=== PATIENT | female | born 1980 | race Caucasian/White ===

== ENCOUNTER 2017-07-16 22:07 | Emergency (ER) | payer OTHER, SELFPAY ==
[2017-07-16 22:09] VITALS: BP 162/103; PULSE 87; RESP 20; TEMP 37.1; O2SAT 99; BMI 46.1
--- NOTE | 2017-07-16 22:24 | CT_ITS ---
STUDY: CTA OF THE BRAIN REASON FOR EXAM: Female, 36 years old. INT SHARP PAIN RIGHT SIDE HEAD NEAR EYE, UNABLE TO OPEN EYE WHEN PAIN OCCURS RADIATION DOSAGE (If Supplied By Facility): CTDIvol = ( 25.29 ) mGy, DLP = ( 1543.58 ) mGycm TECHNIQUE: CT angiography was performed with a multi-detector CT scanner. Data acquisition was obtained from the skull base through the vertex following intravenous administration of ml of . MIP images were reconstructed from the axial data set. Post-processing of the angiographic images was performed, with multiplanar reformation and 3D reconstruction. Individualized dose optimization techniques were used for this CT. COMPARISON: None. FINDINGS: Normal bilateral petrous carotid arteries. Normal right cavernous carotid artery with a normal supraclinoid bifurcation. Normal left cavernous carotid artery with a normal supraclinoid bifurcation. Normal right A1 segments of the anterior cerebral artery. Normal left A1 segments of the anterior cerebral artery. Normal intact anterior communicating artery (ACOM). Normal bilateral A2 segments of the anterior cerebral arteries. Normal right M1 and M2 segments of the middle cerebral arteries, with a normal M1 bifurcation. Normal left M1 and M2 segments of the middle cerebral arteries, with a normal M1 bifurcation. There is non-visualization of the right posterior communicating artery (PCOM). There is non-visualization of the left posterior communicating artery (PCOM). Normal bilateral vertebral arteries. Normal basilar artery with a normal basilar bifurcation. The visualized bilateral superior cerebellar (SCA) arteries are normal. Normal bilateral P1, P2 and visualized P3 segments of the posterior cerebral arteries. There is no demonstrated aneurysm of the [place]. There is no demonstrated abnormality of the visualized brain. CT/CTA Head W/WO Contrast IMPRESSION: Normal [place] without a demonstrated aneurysm or hemodynamically significant stenosis. Electronically Signed: Olga Lidia Del Valle MD at 23:50 EDT Tel , Service support ,
--- NOTE | 2017-07-16 22:29 | ED.VISSUMM ---
- ER Visit Summary Date of Service: 07/16/17 Chief Complaint: Headache History of Present Illness: The patient is a 36 F presenting with right-sided headache. She states this has gradually worsened since yesterday. She has intermittent pain in the right side of her forehead. She states that when the pain is severe it causes her eye to close. She denies visual changes or photophobia. Denies trauma. Denies fever or neck pain. Denies numbness or weakness. She has a history of migraines and states this does not feel like her typical migraine. She tried her typical migraine medication without relief. Physical Examination: Vitals are stable. Patient is afebrile. Alert no acute distress. HEENT exam right temporal area and right forehead tenderness, no signs of infection Neck is supple. No meningismus Lungs are clear and equal bilaterally. Heart is regular rate and rhythm. Abdomen is soft nontender nondistended. Extremities are unremarkable. Skin is warm and dry. No focal neurologic deficit. Remainder of exam is unremarkable. Emergency Department Course and Treatment: Patient is given Compazine, Benadryl. CTA head shows normal [place] without a demonstrated aneurysm or hemodynamically significant stenosis. CBC, chemistries, and sed rate are within normal limits. On reevaluation, patient is resting comfortably. She has an appointment with her primary care physician in the morning. She is advised to keep this appointment. She is advised return ED for any worsening complaints. Disposition: Discharge home Impression: Headache This note was generated with [employer] dictation software. It may contain incorrect words, spelling, and punctuation that were not noted in review of the chart prior to signing ED Disposition - Plan for ED Patient: Disposition: Home or Assisted Living Chief Complaint: Headache Instructions: ED Cephalgia Unspecified Referrals: Jose Rasmussen III, MD [Primary Care Provider] -
--- NOTE | 2017-07-16 22:33 | ED.DCSUM_ITS ---
- ER Visit Summary Date of Service: 07/16/17 Chief Complaint: Headache History of Present Illness: The patient is a 36 F presenting with right-sided headache. She states this has gradually worsened since yesterday. She has intermittent pain in the right side of her forehead. She states that when the pain is severe it causes her eye to close. She denies visual changes or photophobia. Denies trauma. Denies fever or neck pain. Denies numbness or weakness. She has a history of migraines and states this does not feel like her typical migraine. She tried her typical migraine medication without relief. Physical Examination: Vitals are stable. Patient is afebrile. Alert no acute distress. HEENT exam right temporal area and right forehead tenderness, no signs of infection Neck is supple. No meningismus Lungs are clear and equal bilaterally. Heart is regular rate and rhythm. Abdomen is soft nontender nondistended. Extremities are unremarkable. Skin is warm and dry. No focal neurologic deficit. Remainder of exam is unremarkable. Emergency Department Course and Treatment: Patient is given Compazine, Benadryl. CTA head shows normal [place] without a demonstrated aneurysm or hemodynamically significant stenosis. CBC, chemistries, and sed rate are within normal limits. On reevaluation, patient is resting comfortably. She has an appointment with her primary care physician in the morning. She is advised to keep this appointment. She is advised return ED for any worsening complaints. Disposition: Discharge home Impression: Headache This note was generated with [employer] dictation software. It may contain incorrect words, spelling, and punctuation that were not noted in review of the chart prior to signing ED Disposition - Plan for ED Patient: Disposition: Home or Assisted Living Chief Complaint: Headache Instructions: ED Cephalgia Unspecified Referrals: Jose Rasmussen III, MD [Primary Care Provider] -
[2017-07-16] MEDS: proCHLORPERazine 10 MG/2 ML Vial IV (22:49)
[2017-07-16] MEDS: DiphenhydrAMINE 50 MG/ML Syringe 25 MG IV (22:49)
[2017-07-16 23:01] LABS: Absolute Lymphocyte Count 2.37 X10^3/ul (0.83-4.51); Absolute Neutrophil Count 5.5 X10^3/uL (2.0-7.7); Basophil# 0.01 X10^3/uL; Basophil% 0.1 % (0-1); Eosinophil# 0.15 X10^3/uL; Eosinophils% 1.8 % (0-5); Hematocrit 37.1 % (37-47); Hemoglobin 11.9 g/dl (12.0-15.0); Lymphocyte # 2.37 X10^3/ul (4.0); Lymphocyte % 27.8 % (19-41); Mean Corp Hgb Conc 32.1 g/gl (32-36); Mean Corpuscular Hgb 27.4 pg (27.0-32.0); Mean Corpuscular Volume 85.3 fL (81-99); Mean Platelet Vol. 9.4 fl (6.2-12.0); Monocyte# 0.52 X10^3/uL; Monocyte% 6.1 % (0-10); Neutrophil # 5.47 X10^3/uL (2.7-7.7); Neutrophil % 64.2 % (47-70); Platelet Count 368 K/mm3 (150-450); RBC Distribution Width CV 13.1 % (11.6-14.6); RBC Distribution Width SD 40.7 fl (35.1-43.9); Red Blood Count 4.35 M/mm3 (4.2-5.4); White Blood Count 8.5 K/mm3 (4.4-11.0)
[2017-07-16 23:03] LABS: POSITIVE COUNT NO; POSITIVE DIFFERENTIAL NO; POSITIVE MORPHOLOGY NO
[2017-07-16 23:09] LABS: Erythrocyte Sedimentation Rate 9 mm/hr (0-20)
[2017-07-16 23:13] LABS: Anion Gap 5 (5-15); BUN 12 mg/dL (7-18); BUN/Creat Ratio 12.6 RATIO (10-20); Calcium,Total 9.1 mg/dL (8.5-10.1); Chloride 107 mmol/L (98-107); Creatinine, Serum 0.95 mg/dL (0.55-1.02); EST Glomerular Filtration Rate 71 mL/min (>60); Est Glom Filt Rate - Afr Amer 86 mL/min (>60); Estimated Creatinine Clearance 83.38 ml/min; Glucose 94 mg/dL (74-106); Potassium 3.6 mmol/L (3.5-5.1); Sodium Level 139 mmol/L (136-145)
--- NOTE | 2017-07-17 00:17 | ED.DEP ---
ED Disposition - Plan for ED Patient: Chief Complaint: Headache Instructions: ED Cephalgia Unspecified Referrals: Jose Rasmussen III, MD [Primary Care Provider] -
[2017-07-17 00:32] VITALS: BP 154/60; PULSE 75; RESP 18; O2SAT 97
== END 2017-07-17 00:33 | disposition home or self-care (01) ==
PROVIDERS: Emergency Provider Emergency Medicine; Family Provider Family Medicine; PCP Family Medicine
DX: R51 Headache (principal); I10 Essential (primary) hypertension; E28.2 Polycystic ovarian syndrome; Z79.899 Other long term (current) drug therapy
CPT/HCPCS: 70496; 80048; 85025; 85652; 96374; 96375; 99283; J7030; Q9967

== ENCOUNTER → 2017-11-24 13:44 | Outpatient (CLI) | payer OTHER, SELFPAY ==
--- NOTE | 2017-11-24 13:46 | US_ITS ---
STUDY: ULTRASOUND OF THE FEMALE PELVIS - COMPLETE REASON FOR EXAM: Female, 37 years old. Abnormal bleeding. LMP: October 28, 2017. TECHNIQUE: Transabdominal and Transvaginal TECHNICAL QUALITY: Adequate. COMPARISON: CT of the abdomen and pelvis, August 09, 2015. FINDINGS: The uterus is anteverted and is in a midline position. The uterus measures 8.8 x 4.6 x 3.8 cm. There is a Nabothian cyst of the cervix. The endometrium measures 4.7 mm in thickness, and is hyperechoic. There is no demonstrated endometrial mass. There is no demonstrated myometrial mass. I.U.D. - The patient does not have an I.U.D. The right ovary is visualized. The right ovary measures 3.9 x 2.5 x 2.2 cm. There is a 2.6 x 1.7 x 1.8 cm cyst. There is no visualized right adnexal mass or complex lesion. There is normal arterial and normal venous vascularity. The left ovary is visualized. The left ovary measures 3.2 x 3.3 x 2.0 cm. There is a 2.3 x 2.5 x 1.9 cm cyst. There is no visualized left adnexal mass or complex lesion. There is normal arterial and normal venous vascularity. There is no fluid in the cul-de-sac. The pre void volume of the bladder was 374 ml. The urinary bladder is grossly unremarkable. Polycystic ovary disease: No. US/Pelvic (Non ) IMPRESSION: Bilateral ovarian cysts without uterine abnormality. Electronically Signed: Bebo Mojica DO at 22:44 EDT Tel [phone], Service support ,
--- NOTE | 2017-11-24 14:05 | US_ITS ---
STUDY: ULTRASOUND OF THE FEMALE PELVIS - COMPLETE REASON FOR EXAM: Female, 37 years old. Abnormal bleeding. LMP: October 28, 2017. TECHNIQUE: Transabdominal and Transvaginal TECHNICAL QUALITY: Adequate. COMPARISON: CT of the abdomen and pelvis, August 09, 2015. FINDINGS: The uterus is anteverted and is in a midline position. The uterus measures 8.8 x 4.6 x 3.8 cm. There is a Nabothian cyst of the cervix. The endometrium measures 4.7 mm in thickness, and is hyperechoic. There is no demonstrated endometrial mass. There is no demonstrated myometrial mass. I.U.D. - The patient does not have an I.U.D. The right ovary is visualized. The right ovary measures 3.9 x 2.5 x 2.2 cm. There is a 2.6 x 1.7 x 1.8 cm cyst. There is no visualized right adnexal mass or complex lesion. There is normal arterial and normal venous vascularity. The left ovary is visualized. The left ovary measures 3.2 x 3.3 x 2.0 cm. There is a 2.3 x 2.5 x 1.9 cm cyst. There is no visualized left adnexal mass or complex lesion. There is normal arterial and normal venous vascularity. There is no fluid in the cul-de-sac. The pre void volume of the bladder was 374 ml. The urinary bladder is grossly unremarkable. Polycystic ovary disease: No. US/Transvaginal Non- IMPRESSION: Bilateral ovarian cysts without uterine abnormality. Electronically Signed: Bebo Mojica DO at 22:44 EDT Tel [phone], Service support ,
== END ==
LOC: US 13:45
PROVIDERS: Family Provider Family Medicine; PCP Family Medicine; Referring Provider Obstetrics & Gynecology; Visit Provider Obstetrics & Gynecology
DX: N92.6 Irregular menstruation, unspecified (principal)
CPT/HCPCS: 76830; 76856

== ENCOUNTER 2018-02-28 09:40 | Emergency (ER) | payer OTHER, SELFPAY ==
[2018-02-28 08:19] VITALS: BMI 40.6
[2018-02-28 09:40] VITALS: BP 154/100; PULSE 69; RESP 18; TEMP 36.6; O2SAT 96; BMI 43.0
--- NOTE | 2018-02-28 09:50 | CT_ITS ---
STUDY: CT ABDOMEN AND PELVIS WITHOUT CONTRAST REASON FOR EXAM: Female, 37 years old. Right lower quadrant for 3 days RADIATION DOSAGE (If Supplied By Facility): CTDIvol = ( 22.66 ) mGy, DLP = ( 1228.68 ) mGycm TECHNIQUE: Transaxial images were obtained from the dome of the diaphragm to the symphysis pubis without oral contrast, and without intravenous contrast. Sagittal and coronal images were reconstructed. Individualized dose optimization techniques were used for this CT. COMPARISON: 08/09/2015 FINDINGS: The visualized lung bases are unremarkable. The visualized portions of the heart are within normal limits. Normal liver. There is non-visualization of the gallbladder, which may be secondary to either contraction or a prior cholecystectomy. Normal spleen. Normal pancreas. Normal bilateral adrenal glands. Normal right kidney. Normal left kidney. Normal visualized stomach. Normal small intestine. Mild fecal retention in the colon but no colon wall thickening. There is non-visualization of the appendix. No pericecal stranding or inflammation. Very small subcentimeter lymph nodes in the right lower quadrant but no dominant cameron mass. Normal abdominal aorta. Normal inferior vena cava. Normal retroperitoneum. Normal urinary bladder. Normal visualized uterus. 3.6 cm intermediate echogenicity cyst of the right ovary. No pelvic free fluid. IUD is noted. Normal abdominal wall. There are degenerative changes of the thoracolumbar spine. CT/Abdomen/Pelvis without Cont IMPRESSION: 1. No hydronephrosis or urinary tract calcifications. 2. 3.6 cm intermediate density right ovarian cyst could represent a hemorrhagic cyst. No pelvic free fluid or inflammation. 3. Nonvisualized appendix but no pericecal inflammation. Electronically Signed: Joseph Tinoco MD at 10:56 EST , Service support ,
[2018-02-28 10:12] LABS: Absolute Lymphocyte Count 1.59 X10^3/ul (0.83-4.51); Absolute Neutrophil Count 3.7 X10^3/uL (2.0-7.7); Basophil# 0.01 X10^3/uL; Basophil% 0.2 % (0-1); Eosinophil# 0.24 X10^3/uL; Hematocrit 42.2 % (37-47); Hemoglobin 13.9 g/dl (12.0-15.0); Lymphocyte # 1.59 X10^3/ul (4.0); Lymphocyte % 26.2 % (19-41); Mean Corp Hgb Conc 32.9 g/gl (32-36); Mean Corpuscular Hgb 28.4 pg (27.0-32.0); Mean Corpuscular Volume 86.3 fL (81-99); Mean Platelet Vol. 9.4 fl (6.2-12.0); Monocyte% 8.2 % (0-10); Neutrophil # 3.73 X10^3/uL (2.7-7.7); Neutrophil % 61.4 % (47-70); POSITIVE COUNT NO; POSITIVE DIFFERENTIAL NO; POSITIVE MORPHOLOGY NO; Platelet Count 345 K/mm3 (150-450); RBC Distribution Width CV 13.8 % (11.6-14.6); RBC Distribution Width SD 43.7 fl (35.1-43.9); Red Blood Count 4.89 M/mm3 (4.2-5.4); White Blood Count 6.1 K/mm3 (4.4-11.0)
[2018-02-28] MEDS: Morphine 4 MG/ML Syringe IV (10:29)
[2018-02-28] MEDS: Ondansetron 4 MG/2 ML Vial IV (10:29)
[2018-02-28] MEDS: 0.9% Normal Saline 1,000 ML 125 ML IV (10:29)
[2018-02-28 10:30] LABS: ALB/GLOB Ratio 1.1 RATIO (0.9-2.4); AST(SGOT) 11 U/L (15-37); Alanine Aminotransfer ALT/SGPT 24 U/L (13-56); Albumin, Serum 4.1 g/dL (3.2-5.0); Alkaline Phosphatase 76 U/L (45-117); Anion Gap 10 (5-15); BUN 13 mg/dL (7-18); BUN/Creat Ratio 14.7 RATIO (10-20); Calcium,Total 8.9 mg/dL (8.5-10.1); Chloride 108 mmol/L (98-107); Creatinine, Serum 0.88 mg/dL (0.55-1.02); EST Glomerular Filtration Rate 77 mL/min (>60); Est Glom Filt Rate - Afr Amer 93 mL/min (>60); Estimated Creatinine Clearance 89.15 ml/min; Globulin 3.6 g/dL (2.2-4.2); Glucose 94 mg/dL (74-106); Potassium 3.8 mmol/L (3.5-5.1); Protein, Total 7.7 g/dL (6.4-8.2); Sodium Level 140 mmol/L (136-145)
[2018-02-28 10:35] LABS: Pregnancy, Serum, hCG Quali. NEGATIVE Negative (0-9 Nonpreg)
[2018-02-28 10:45] LABS: Bacteria 0 SEEN /hpf (None Seen); Mucous, Urine 0 SEEN /hpf (<or=2+); Red Blood Cells-Urine 0 SEEN /hpf (0-5)
[2018-02-28 10:58] LABS: Color, Urine Straw (Yellow); Glucose, Dipstick Normal (Normal); Ketone-Dipstick Negative (Negative); Leukocyte Esterase-Dipstick 100 /ul (Negative); Nitrite-Dipstick Negative (Negative); Occult Blood-Urine Negative /ul (Negative); Protein-Dipstick Negative (Negative); Urine Bilirubin Dipstick Negative (Negative); Urine Clarity Clear (Clear); Urine Urobilinogen Normal (Normal)
[2018-02-28 11:05] LABS: Squamous Epithelial Cells - UA 0-5 SEEN /hpf (5-10); White Blood Cells 0-5 SEEN /hpf (0-5)
--- NOTE | 2018-02-28 11:05 | ED.DCSUM_ITS ---
- ER Visit Summary Date of Service: 02/28/18 Chief Complaint: [Abdominal pain] History of Present Illness: The patient is a 37 F [presents to the emergency department complaint of abdominal pain that started 3 days ago. Patient states the pain continuous. She rates her pain a 4 5 out of 10 currently. Patient had nausea but no vomiting. She denies any fever. She had somewhat decreased appetite today. Patient was seen at urgent care and had a urinalysis that was negative on the dip but sent to the ER for further evaluation. Patient does have a history of hypertension, PCO S syndrome, migraines. Patient has had prior cholecystectomy. Patient has an IUD and does not believe she is .] Patient denies urinary symptoms. Physical Examination: [HEENT-PERRLA, EOMI. Cranial nerves II through XII grossly intact. TMs clear. Mucous membranes moist. No adenopathy. Cardiovascular-regular rate and rhythm without murmur or ectopy Lungs-clear to auscultation, chest wall stable without crepitus or subcu emphysema Abdomen-normoactive bowel sounds, soft. Patient has some tenderness over right lower quadrant with some guarding. There is no rebound, rigidity, or perineal signs. Negative Rovsing sign. Negative obturator sign. Extremities-intact ?4, normal range of motion, normal pulses, atraumatic] Test Results: [CBC with differential obtained was normal. Chemistries were normal. LFTs were normal. HCG was negative. Urine dip is negative and microscopic pending. CT flank obtained showed nonvisualization of the appendix however there was no pericecal inflammation. There is no evidence of urolithiasis. Patient was noted to have a 3.6 cm right-sided ovarian cyst that could be hemorrhagic.] Emergency Department Course and Treatment: [Patient given morphine and Zofran for pain. Patient continued to complain of nausea and was given Phenergan 12.5 mill grams IV.] Treatment Plan: [Patient will be given a prescription for Phenergan and Percocet for pain. Patient advised to follow-up with her [employer] within next 3-5 days.] Disposition: [Discharged home in stable condition] Impression: [Right ovarian cyst Abdominal pain] This note was generated with [employer] dictation software. It may contain incorrect words, spelling, and punctuation that were not noted in review of the chart prior to signing ED Disposition - Plan for ED Patient: Chief Complaint: Abd Pain Referrals: Jose Rasmussen III, MD [Primary Care Provider] -
--- NOTE | 2018-02-28 11:05 | ED.DEP ---
ED Disposition - Plan for ED Patient: Chief Complaint: Abd Pain Instructions: ED Cyst Ovarian Prescriptions: Oxycodone HCl/Acetaminophen [Percocet 5/325] 1 tab PO Q6H PRN PRN 3 Days #12 tab PRN Reason: Pain proMETHazine tablet [Phenergan] 25 mg PO Q6H PRN PRN #10 tab PRN Reason: Nausea Referrals: Jose Rasmussen III, MD [Primary Care Provider] - Liv Fung MD [STAFF PHYSICIAN] - 3-5 Days
[2018-02-28] MEDS: proMETHazine 25 MG/ML Syringe 12.5 MG IV (11:16)
[2018-02-28 11:20] VITALS: BP 145/86; PULSE 56; RESP 16; O2SAT 100
== END 2018-02-28 11:25 | disposition home or self-care (01) ==
PROVIDERS: Emergency Provider Emergency Medicine; Family Provider Family Medicine; PCP Family Medicine
DX: N83.201 Unspecified ovarian cyst, right side (principal); R10.31 Right lower quadrant pain; I10 Essential (primary) hypertension; G43.909 Migraine, unspecified, not intractable, without status migrainosus; Z79.899 Other long term (current) drug therapy
CPT/HCPCS: 74176; 80053; 81001; 84703; 85025; 96361; 96374; 96375; 99283; J7030; A4216; J2405

== ENCOUNTER → 2018-03-08 10:05 | Outpatient (CLI) | payer OTHER, SELFPAY ==
[2018-03-08 09:39] VITALS: BMI 43.0
[2018-03-08 10:56] LABS: Thyroid Stim Hormone (TSH) 0.76 uIU/mL (0.358-3.74)
== END ==
LOC: PAVLAB 10:10
PROVIDERS: Family Provider Family Medicine; PCP Family Medicine; Referring Provider Nurse Practitioner Women's Health; Visit Provider Nurse Practitioner Women's Health
DX: R63.4 Abnormal weight loss (principal)
CPT/HCPCS: 36415; 84443

== ENCOUNTER → 2018-03-16 12:09 | Outpatient (CLI) | payer OTHER, SELFPAY ==
[2018-03-08 09:39] VITALS: BMI 43.0
--- NOTE | 2018-03-16 12:11 | US_ITS ---
STUDY: ULTRASOUND OF THE FEMALE PELVIS - COMPLETE REASON FOR EXAM: Female, 37 years old. Follow-up for ovarian cysts. LMP: Unknown. TECHNIQUE: Transabdominal and Transvaginal TECHNICAL QUALITY: Adequate. COMPARISON: Comparison is made with prior study dated November 24, 2017. FINDINGS: The uterus is anteverted and is in a midline position. The uterus measures 8.9 cm x 5.2 cm x 3.6 cm. There is a Nabothian cyst of the cervix. The endometrium measures 4.0 mm in thickness, and is hyperechoic. There is no demonstrated endometrial mass. There is no demonstrated myometrial mass. I.U.D. - The patient does have an I.U.D. The right ovary is visualized. The right ovary measures 2.7 cm x 2.4 cm x 3.2 cm. A dominant follicle is seen in the right ovary measuring 1.4 cm x 1.3 cm. There is no visualized right adnexal mass or complex lesion. There is normal arterial and normal venous vascularity. The left ovary is visualized. The left ovary measures 2.9 cm x 2.4 cm x 2.4 cm. There is no left ovarian cyst or ovarian mass. There is no visualized left adnexal mass or complex lesion. There is normal arterial and normal venous vascularity. There is no fluid in the cul-de-sac. The pre void volume of the bladder was 751 ml. Polycystic ovary disease: No. US/Pelvic (Non ) IMPRESSION: Dominant follicle in the right ovary. No cyst is seen. An IUD is seen within the endometrium. Electronically Signed: Suhail Mclaughlin MD at 14:29 EST Tel [phone], Service support ,
--- NOTE | 2018-03-16 12:11 | US_ITS ---
STUDY: ULTRASOUND OF THE FEMALE PELVIS - COMPLETE REASON FOR EXAM: Female, 37 years old. Follow-up for ovarian cysts. LMP: Unknown. TECHNIQUE: Transabdominal and Transvaginal TECHNICAL QUALITY: Adequate. COMPARISON: Comparison is made with prior study dated November 24, 2017. FINDINGS: The uterus is anteverted and is in a midline position. The uterus measures 8.9 cm x 5.2 cm x 3.6 cm. There is a Nabothian cyst of the cervix. The endometrium measures 4.0 mm in thickness, and is hyperechoic. There is no demonstrated endometrial mass. There is no demonstrated myometrial mass. I.U.D. - The patient does have an I.U.D. The right ovary is visualized. The right ovary measures 2.7 cm x 2.4 cm x 3.2 cm. A dominant follicle is seen in the right ovary measuring 1.4 cm x 1.3 cm. There is no visualized right adnexal mass or complex lesion. There is normal arterial and normal venous vascularity. The left ovary is visualized. The left ovary measures 2.9 cm x 2.4 cm x 2.4 cm. There is no left ovarian cyst or ovarian mass. There is no visualized left adnexal mass or complex lesion. There is normal arterial and normal venous vascularity. There is no fluid in the cul-de-sac. The pre void volume of the bladder was 751 ml. Polycystic ovary disease: No. US/Transvaginal Non- IMPRESSION: Dominant follicle in the right ovary. No cyst is seen. An IUD is seen within the endometrium. Electronically Signed: Suhail Mclaughlin MD at 14:29 EST Tel [phone], Service support ,
--- OUTSIDE RECORDS SUMMARY | 2018-05-18 15:57 | XMS RPT_ITS ---
:1980 Author Organization OHIP Support Name Relationship Address Phone DUSTY HOFF ROSANNECELIO DDS Unavailable [address] + [place] [address] MAXMIV, ZACKERY Unavailable [address] + [place] [address] NEIL ALEXX Unavailable [address] + [place] [address] DUSTY JEANMELISSA ASHFORD DDS Unavailable [address] + [place] [address] MAXMIV, ZACKERY Unavailable [address] + [place] [address] NEIL ALEXX Unavailable [address] + [place] [address] DUSTY LUIS EDUARDO SEDON DDS Unavailable [address] + [place] [address] MAXMIV, ZACKERY Unavailable [address] + [place] [address] NEIL ALEXX Unavailable [address] + [place] [address] DUSTYGARRICK HOFF SEDON DDS Unavailable [address] + [place] [address] MAXMIV, ZACKERY Unavailable [address] + [place] [address] NEIL ALEXX Unavailable [address] + [place] [address] DUSTY HOFF SEDON DDS Unavailable [address] + [place] [address] MAXMIV, ZACKERY Unavailable [address] + [place] [address] NEIL, ALEXX Unavailable [address] + [place] [address] DUSTY HOFF SEDON DDS Unavailable [address] + [place] [address] MAXMIV, ZACKERY Unavailable [address] + [place] [address] NEIL, ALEXX Unavailable [address] + [place] [address] DUSTY BRISLEY SEDON DDS Unavailable [address] + [place] [address] MAXMIV, ZACKERY Unavailable [address] + [place] [address] NEIL, ALEXX Unavailable [address] + [place] [address] DUSTY BRISLEY SEDON DDS Unavailable [address] + [place] [address] MAXMIV, ZACKERY Unavailable [address] + [place] [address] NEIL, ALEXX Unavailable [address] + [place] [address] DUSTY TEDISLEY SEDON DDS Unavailable [address] + [place] [address] MAXMIV, ZACKERY Unavailable [address] + [place] [address] NEIL, ALEXX Unavailable [address] + [place] [address] DUSTY BRISLEY SEDON DDS Unavailable [address] + [place] [address] MAXMIV, ZACKERY Unavailable [address] + [place] [address] MAXMIV, ZACKERY Unavailable [address] + [place] [address] [facility] Unavailable [address] + [place] [address] Care Team Providers Name Role Phone JOSE RASMUSSEN III Attending Unavailable CEBUL IIIJOSE Referring Unavailable CEBUL IIIJOSE Attending Unavailable CEBUL III, JOSE A Attending Unavailable CEBUL III, JOSE A Referring Unavailable RUY, GARRET Attending Unavailable RUY, GARRET Referring Unavailable RUY, GARRET Referring Unavailable Medina, Bobo Attending Unavailable Cebul III, Jose Referring Unavailable Cebul III, Jose Primary Care Unavailable Ungur, Remus Attending Unavailable Scooba, Christina Attending Unavailable Cebul III, Jose Referring Unavailable Scooba, Christina Attending Unavailable Saida, Christina Referring Unavailable Cebul III, Jose Primary Care Unavailable Saida, Christina Attending Unavailable Saida, Christina Referring Unavailable Cebul III, Jose Primary Care Unavailable Teddy Meyer Attending Unavailable Cebul III, Jose Referring Unavailable Cebul III, Jose Primary Care Unavailable Cebul III, Jose Primary Care Unavailable Andie Contreras Attending Unavailable Marcanthony, Liv Attending Unavailable Cebul III, Jose Referring Unavailable Arabella Montilla Attending Unavailable Cebul III, Jose Referring Unavailable Marcanthony, Liv Attending Unavailable Marcanthony, Liv Referring Unavailable Cebul III, Jose Primary Care Unavailable Marcanthony, Liv Attending Unavailable Cebul III, Jose Referring Unavailable PROBLEMS PROBLEMS DATE TYPE CONDITION / CODE ATTENDING STATUS SOURCE 03/16/2018 Unknown N83.201 - Christina Cintron Active [facility] ovarian cyst, Hospital right side / Repository N83.201(ICD-10) 03/08/2018 Unknown R63.4 - Abnormal Scooba, Christina Active [facility] weight loss / Community R63.4(ICD-10) Hospital Repository 02/28/2018 Unknown N83.209 - Ungur, Remus Active [facility] ovarian cyst, Hospital unspecified side / Repository N83.209(ICD-10) 02/28/2018 Unknown R30.0 - Dysuria / Bobo Haney Active [facility] R30.0(ICD-10) [facility] Hospital Repository 11/19/2017 Unknown N93.8 - Other Marcanthony, Active [facility] specified abnormal [facility] uterine and Hospital vaginal bleeding / Repository N93.8(ICD-10) 11/19/2017 Unknown E28.2 - Polycystic Marcanthony, Active [facility] ovarian syndrome / [facility] E28.2(ICD-10) Hospital Repository 07/05/2014 Active Essential NA Active [facility] (primary) [facility] [place] hypertension / Repository I10(ICD-10) 11/17/2017 Active Morbid (severe) NA Active [facility] obesity due to [facility] [place] excess calories / Repository E66.01(ICD-10) 11/17/2017 Active Metabolic syndrome NA Active [facility] / E88.81(ICD-10) [facility] [place] Repository 11/17/2017 Active Hyperlipidemia, NA Active [facility] unspecified / [facility] [place] E78.5(ICD-10) Repository 11/12/2017 Active Unknown / GARRET MARIEE Active [facility] UNK(Unknown) [facility] [place] Repository 05/15/2017 Unknown J01.90 - Acute Mitch, Teddy Active [facility] sinusitis, Community unspecified / Hospital J01.90(ICD-10) Repository 05/15/2017 Unknown J01.00 - Acute Mitch, Teddy Active [facility] maxillary [facility] sinusitis, Hospital unspecified / Repository J01.00(ICD-10) PROCEDURES PROCEDURES No Procedure Records FoundRESULTS RESULTS TRANSVAGINAL Observed: 03/16/2018 Status: F Source: [place] NON- 12:11 PM REPOSITORY [facility] Imaging Services [address] [place] [address] Transvaginal Non- MR#: [id number] Acct: [id number] Name: GERDA BYRNES Rep #: [id number] : 1980 F 37 From: Suhail Mclaughlin MD PCP: Jose Rasmussen III, MD Status: REG CLI Study: Transvaginal Non- Date of Exam: 03/16/18 Exam# [id number] Ordering Dr: Christina Cintron DIRECTOR OF GRADUATE MEDICAL EDUCATIONJordanC STUDY: ULTRASOUND OF THE FEMALE PELVIS - COMPLETE REASON FOR EXAM: Female, 37 years old. Follow-up for ovarian cysts. LMP: Unknown. TECHNIQUE: Transabdominal and Transvaginal TECHNICAL QUALITY: Adequate. COMPARISON: Comparison is made with prior study dated November 24, 2017. FINDINGS: The uterus is anteverted and is in a midline position. The uterus measures 8.9 cm x 5.2 cm x 3.6 cm. There is a Nabothian cyst of the cervix. The endometrium measures 4.0 mm in thickness, and is hyperechoic. There is no demonstrated endometrial mass. There is no demonstrated myometrial mass. I.U.D. - The patient does have an I.U.D. The right ovary is visualized. The right ovary measures 2.7 cm x 2.4 cm x 3.2 cm. A dominant follicle is seen in the right ovary measuring 1.4 cm x 1.3 cm. There is no visualized right adnexal mass or complex lesion. There is normal arterial and normal venous vascularity. The left ovary is visualized. The left ovary measures 2.9 cm x 2.4 cm x 2.4 cm. There is no left ovarian cyst or ovarian mass. There is no visualized left adnexal mass or complex lesion. There is normal arterial and normal venous vascularity. There is no fluid in the cul-de-sac. The pre void volume of the bladder was 751 ml. Polycystic ovary disease: No. US/Transvaginal Non- IMPRESSION: Dominant follicle in the right ovary. No cyst is seen. An IUD is seen within the endometrium. Electronically Signed: Suhail Mclaughlin MD at 14:29 EST Tel [phone], Service support , CC: SOLANGE Cintron; Jose Rasmussen III, MD Support Services Tech: Signed PELVIC (NON ) Observed: 03/16/2018 Status: F Source: [place] 12:11 PM REPOSITORY [facility] Imaging Services [address] [place] [address] Pelvic (Non ) MR#: [id number] Acct: [id number] Name: GERDA BYRNES Rep #: [id number] : 1980 F 37 From: Suhail Mclaughlin MD PCP: Jose Rasmussen III, MD Status: REG CLI Study: Pelvic (Non ) Date of Exam: 03/16/18 Exam# [id number] Ordering Dr: Christina Cintron DIRECTOR OF GRADUATE MEDICAL EDUCATION-C STUDY: ULTRASOUND OF THE FEMALE PELVIS - COMPLETE REASON FOR EXAM: Female, 37 years old. Follow-up for ovarian cysts. LMP: Unknown. TECHNIQUE: Transabdominal and Transvaginal TECHNICAL QUALITY: Adequate. COMPARISON: Comparison is made with prior study dated November 24, 2017. FINDINGS: The uterus is anteverted and is in a midline position. The uterus measures 8.9 cm x 5.2 cm x 3.6 cm. There is a Nabothian cyst of the cervix. The endometrium measures 4.0 mm in thickness, and is hyperechoic. There is no demonstrated endometrial mass. There is no demonstrated myometrial mass. I.U.D. - The patient does have an I.U.D. The right ovary is visualized. The right ovary measures 2.7 cm x 2.4 cm x 3.2 cm. A dominant follicle is seen in the right ovary measuring 1.4 cm x 1.3 cm. There is no visualized right adnexal mass or complex lesion. There is normal arterial and normal venous vascularity. The left ovary is visualized. The left ovary measures 2.9 cm x 2.4 cm x 2.4 cm. There is no left ovarian cyst or ovarian mass. There is no visualized left adnexal mass or complex lesion. There is normal arterial and normal venous vascularity. There is no fluid in the cul-de-sac. The pre void volume of the bladder was 751 ml. Polycystic ovary disease: No. US/Pelvic (Non ) IMPRESSION: Dominant follicle in the right ovary. No cyst is seen. An IUD is seen within the endometrium. Electronically Signed: Suhail Mclaughlin MD at 14:29 EST Tel [phone], Service support , CC: SOLANGE Cintron; Jose Rasmussen III, MD Support Services Tech: Signed COIL [employer]SEMBLER OFFICE VISIT Observed: 03/08/2018 Status: F Source: [place] REPORT 10:46 AM REPOSITORY [facility] [address] [place], [place] [address] OFFICE VISIT Date of Service: 03/08/18 MR#: [id number] Acct: [id number] Name: GERDA BYRNES Rep #: [id number] : 1980 Provider: SOLANGE Cintron Age/Sex: 37/F [place] [facility] [place]: Signed Intake Vital Signs03/08/18 Body Mass Index (BMI) 43.0 03/08/18 Height 5 ft 8 in 03/08/18 Weight: 283 lb 6 oz 03/08/18 Body Mass Index (BMI) 43.0 03/08/18 Blood Pressure 122/82 H Intake Visit Reasons: FU ER visit/pelvic pain General Passenger Agent Required: No Is patient in pain?: Yes (varies from 1-5) Allergies TAPE Adverse Reaction (Uncoded 03/08/18 09:37) Rash Medications Diltiazem HCl [Diltiazem 24Hr ER] 240 mg PO DAILY 07/23/15 [History Confirmed 03/08/18] Omeprazole [Prilosec] 40 mg PO DAILY 07/23/15 [History Confirmed 03/08/18] Sumatriptan Succinate [Imitrex] 100 mg PO .X1 PRN 07/23/15 [History Confirmed 03/08/18] Losartan Potassium 50 mg PO DAILY 07/16/17 [History Confirmed 03/08/18] Metformin HCl [Glucophage Xr] 500 mg PO DAILY 07/16/17 [History Confirmed 03/08/18] hydroCHLOROthiazide [Hydrochlorothiazide] 12.5 mg PO DAILY 07/16/17 [History Confirmed 03/08/18] gabapentin 300 mg capsule 300 mg PO TID 11/19/17 [History Confirmed 03/08/18] topiramate 50 mg tablet 50 mg PO DAILY 11/19/17 [History Confirmed 03/08/18] proMETHazine tablet [Phenergan] 25 mg PO Q6H PRN PRN #10 tab 02/28/18 [Rx Confirmed 03/08/18] levonorgestrel 20 mcg/24 hr (5 years) intrauterine device 1 insert INTRAUTERINE ONCE 03/08/18 [History Confirmed 03/08/18] Post menopausal: No Patient : No : No Nurse's Note: Pt states she is achy now but had pain when she went to the ER. PFSH Medical History History of migraine (Acute) PCOS (polycystic ovarian syndrome) (Acute) Hypertension (Chronic) Surgical History delivery delivered (Acute) Encounter for cholecystectomy (Acute) History of tonsillectomy (Acute) Family History Father Hypertension Cancer bladder Heart disease Multiple sclerosis Mother Hypertension Social History Smoking Status: Never smoker alcohol intake: never substance use type: does not use caffeine: Yes what type of physical activity do you participate in: none seatbelt use: always do you feel safe at home: Yes additional social history: [employer]- [employer] Patient is a dental hygenist HPI FU ER visit/pelvic pain: Details: GERDA BYRNES is a 37 year old who presents for follow up ED visit 02/28/18 for lower pelvic pain. CT confirmed 3.6 right ovarian cyst, possibly hemorrhagic. Patient reports cysts since age 14. Off OCP in November when had mirena IUD placed for heavy menses. No menses since placement. States pain was intense and sharp when went to ED, now just achy dull lower right pelvis. Pregancy History 2 Elective abortions Hx Para 2 Spontaneous abortions Past Pregnancies Del. DateName GA/Weeks Outcome Route Bth WeighInfant GeLabor LgtAnesthesiDel LocatProvider FOB t n h a n ROS Const Constitutional: Reports system reviewed and no additional complaints, except as docu GI GI: Denies abdominal pain or change in bowel habits : Reports as per HPI Exam Const General: cooperative, no acute distress Nutritional Appearance: well nourished Orientation: oriented x3 External Female Exam: normal external appearance, normal appearance of the urethra Urethra: normal appearance of the urethra Speculum Exam - Vagina: normal appearance of the vagina, normal vaginal discharge Speculum Exam - Cervix: normal appearance of the cervix Bimanual Exam- Vagina AND Uterus: normal bimanual exam, uterus non-tender, uterine size normal Bimanual Exam- Adnexa, other: normal adnexae, no adnexal masses, adnexae non-tender Assessment AND Plan Problems 1. Right ovarian cyst N83.201 Plan US to confirm resolution She has previously discussed hysterectomy with Dr. Fung and is still considering. RTO prn, annual exam Orders Orders: Medications New: Coding Level of Care Code Off vis,est,level 3 Diagnoses Right ovarian cyst N83.201 03/08/18 1046 <Electronically signed by Christina JESUS> Date Christina THOMASONC Cosigner Signature: Date (if applicable) CC: THYROID STIM HORMONE Collected: 03/08/2018 Status: F Source: [place] ([facility]) 10:15 AM REPOSITORY TYPE CODE TESTS RESULT OUT OF RANGE REFERENCE UNITS LAB L501.9520 0.358-3.74 uIU/mL Normal TSH 0.76 Performed By: #### L501.9520 #### [facility] [address] [place], [address] DISCHARGE INSTRUCTION Observed: 02/28/2018 Status: F Source: [place] 11:07 AM REPOSITORY [facility] Medical Records Department [address] [place] [address] Discharge Instruction 02/28/18 1105 MR#: [id number] Acct: [id number] Name: GERDA BYRNES Rep #: [id number] : 1980 37 From: Kasey Andre DO PCP: Jose Rasmussen III, MD Status: REG ER ED Disposition - Plan for ED Patient: Chief Complaint: Abd Pain Instructions: ED Cyst Ovarian Prescriptions: Oxycodone HCl/Acetaminophen [Percocet 5/325] 1 tab PO Q6H PRN PRN 3 Days #12 tab PRN Reason: Pain proMETHazine tablet [Phenergan] 25 mg PO Q6H PRN PRN #10 tab PRN Reason: Nausea Referrals: Jose Rasmussen III, MD [Primary Care Provider] - Liv Fung MD [STAFF PHYSICIAN] - 3-5 Days What to do if you have Problems For any increased pain, shortness of breath, bleeding, nausea or vomiting, chest pain, or any unexpected problems, contact your Primary Care Provider. Call [facility] ([phone]) or report to the closest Emergency Room. Call 911 if necessary. 02/28/18 1107 <Electronically signed by Kasey Andre DO> Date Kasey Andre DO Cosigner Signature (If Indicated): Date CC: Jose Rasmussen III, MD EMERGENCY DEPARTMENT Observed: 02/28/2018 Status: F Source: [place] SUMMARY 11:05 AM REPOSITORY [facility] Medical Records Department [address] [place] [address] Emergency Department Summary 02/28/18 1103 MR#: [id number] Acct: [id number] Name: GERDA BYRNES Rep #: [id number] : 1980 37 From: Kasey Andre DO PCP: Jose Rasmussen III, MD Status: REG ER - ER Visit Summary Date of Service: 02/28/18 Chief Complaint: [Abdominal pain] History of Present Illness: The patient is a 37 F [presents to the emergency department complaint of abdominal pain that started 3 days ago. Patient states the pain continuous. She rates her pain a 4 5 out of 10 currently. Patient had nausea but no vomiting. She denies any fever. She had somewhat decreased appetite today. Patient was seen at urgent care and had a urinalysis that was negative on the dip but sent to the ER for further evaluation. Patient does have a history of hypertension, PCO S syndrome, migraines. Patient has had prior cholecystectomy. Patient has an IUD and does not believe she is .] Patient denies urinary symptoms. Physical Examination: [HEENT-PERRLA, EOMI. Cranial nerves II through XII grossly intact. TMs clear. Mucous membranes moist. No adenopathy. Cardiovascular-regular rate and rhythm without murmur or ectopy Lungs-clear to auscultation, chest wall stable without crepitus or subcu emphysema Abdomen-normoactive bowel sounds, soft. Patient has some tenderness over right lower quadrant with some guarding. There is no rebound, rigidity, or perineal signs. Negative Rovsing sign. Negative obturator sign. Extremities-intact 4, normal range of motion, normal pulses, atraumatic] Test Results: [CBC with differential obtained was normal. Chemistries were normal. LFTs were normal. HCG was negative. Urine dip is negative and microscopic pending. CT flank obtained showed nonvisualization of the appendix however there was no pericecal inflammation. There is no evidence of urolithiasis. Patient was noted to have a 3.6 cm right-sided ovarian cyst that could be hemorrhagic.] Emergency Department Course and Treatment: [Patient given morphine and Zofran for pain. Patient continued to complain of nausea and was given Phenergan 12.5 mill grams IV.] Treatment Plan: [Patient will be given a prescription for Phenergan and Percocet for pain. Patient advised to follow-up with her COIL ASSEMBLER within next 3- 5 days.] Disposition: [Discharged home in stable condition] Impression: [Right ovarian cyst Abdominal pain] This note was generated with [employer] dictation software. It may contain incorrect words, spelling, and punctuation that were not noted in review of the chart prior to signing ED Disposition - Plan for ED Patient: Chief Complaint: Abd Pain Referrals: Jose Rasmussen III, MD [Primary Care Provider] - What to do if you have Problems For any increased pain, shortness of breath, bleeding, nausea or vomiting, chest pain, or any unexpected problems, contact your Primary Care Provider. Call [facility] ([phone]) or report to the closest Emergency Room. Call 911 if necessary. 02/28/18 4692 <Electronically signed by Kasey Andre DO> Date Kasey Andre DO Cosigner Signature (If Indicated): Date CC: Jose Rasmussen III, MD URINALYSIS, COMPLETE Collected: 02/28/2018 Status: F Source: [place] 10:40 AM REPOSITORY Order Comment: How was Urine Obtained? CLEAN CATCH TYPE CODE TESTS RESULT OUT OF RANGE REFERENCE UNITS LAB L400.3000 Yellow COLOR Normal Straw LAB L400.3050 Clear Normal CLARITY Clear LAB L400.3200 Normal mg/dl Normal GLUCOSE, UR Normal LAB L400.3300 Negative mg/dL Normal BILIRUBIN URINE Negative LAB L400.3400 Negative mg/dl Normal KETONE UR Negative LAB L400.3465 1.002-1.030 Normal SP.GR. DIPSTX 1.010 LAB L400.3550 5.0 - 8.0 pH UR Normal 6.0 LAB L400.3600 Negative mg/dl PROT Normal DIPSTX Negative LAB L400.3700 Normal mg/dl Normal UROBILI Normal LAB L400.3750 Negative Normal NITRITE UR Negative LAB L400.3780 Negative /ul Normal OCCULT BLOOD-UR Negative LAB L400.3800 Negative /ul High LEUK ESTERASE 100 LAB L400.4050 0-5 /hpf WBC Normal 0-5 SEEN LAB L400.4100 0-5 /hpf 0 Normal RBC-UA SEEN LAB L400.4150 5-10 /hpf SQUAM Normal EPI 0-5 SEEN LAB L400.4300 None Seen /hpf 0 Normal BACTERIA SEEN LAB L400.4350 <or=2+ /hpf 0 Normal MUCUS, URINE SEEN Performed By: #### L400.0001 #### [facility] [address] [place], [address] CBC W/DIFF, AUTOMATED Collected: 02/28/2018 Status: F Source: [place] 10:03 AM REPOSITORY TYPE CODE TESTS RESULT OUT OF RANGE REFERENCE UNITS LAB L100.1000 4.4-11.0 K/mm3 Normal WBC 6.1 LAB L100.1200 4.2-5.4 M/mm3 Normal RBC 4.89 LAB L100.1300 12.0-15.0 g/dl Normal HGB 13.9 LAB L100.1400 37-47 % Normal HCT 42.2 LAB L100.1500 81-99 fL Normal MCV 86.3 LAB L100.1600 27.0-32.0 pg Normal MCH 28.4 LAB L100.1700 32-36 g/gl Normal MCHC 32.9 LAB L100.1810 11.6-14.6 % Normal RDW CV 13.8 LAB L100.1820 35.1-43.9 fl Normal RDW SD 43.7 LAB L100.1900 150-450 K/mm3 Normal PLT 345 LAB L100.2000 6.2-12.0 fl Normal MPV 9.4 LAB L100.2100 47-70 % Normal NEUT% 61.4 LAB L100.2200 19-41 % Normal LY% 26.2 LAB L100.2300 0-10 % Normal MONO% 8.2 LAB L100.2400 0-5 % Normal EO% 4.0 LAB L100.2500 0-1 % Normal BASO% 0.2 LAB L100.2550 0.0-0.9 % Normal IM GRAN % 0.000 Result Comment: IG% - Immature Granulocytes (promyelocytes, myelocytes and metamyelocytes) > 1% indicates that a LEFT SHIFT is Present. LAB L100.2620 2.0-7.7 X10 3/uL Normal Absolute Neut 3.7 LAB L100.2720 0.83-4.51 X10 3/ul Normal Absolute Lymph 1.59 Performed By: #### L100.0100 #### [facility] [address] [place], [place], [address] COMPREHENSIVE METABOLIC Collected: 02/28/2018 Status: F Source: [facility] 10:03 AM REPOSITORY TYPE CODE TESTS RESULT OUT OF RANGE REFERENCE UNITS LAB L501.0100 74-106 mg/dL Normal GLU 94 Result Comment: Please note revised GLUCOSE reference range effective 2017. LAB L501.1000 7-18 mg/dL Normal BUN 13 LAB L501.1100 0.55-1.02 mg/dL Normal CREAT,SERUM 0.88 Result Comment: The validity of the calculated GFR AND GFRAA in patients over 70 years has not been determined. Clinical correlation is essential. LAB L501.1110 >60 mL/min Normal EST GFR 77 Result Comment: Non- GFR Calc LAB L501.1115 >60 mL/min Normal EST GFR - AA 93 Result Comment: GFR Calc LAB L501.1255 ml/min Normal Estimated CRCL 89.15 LAB L501.1300 10-20 RATIO Normal BUN/CRE 14.7 LAB L501.1500 6.4-8. g/dL Normal 2 T PROT 7.7 LAB L501.1800 3.2-5. g/dL Normal 0 ALB 4.1 LAB L501.1950 2.2-4. g/dL Normal 2 GLOB 3.6 LAB L501.2000 0.9-2. RATIO Normal 4 A/G 1.1 LAB L501.2200 8.5-10 mg/dL Normal .1 CA 8.9 LAB L501.4100 15-37 U/L Low AST 11 LAB L501.4305 45-117 U/L Normal ALK P 76 LAB L501.4405 13-56 U/L Normal ALT 24 LAB L501.4600 0.20-1 mg/dL Normal .00 T BILI 0.70 LAB L501.5300 136-14 mmol/L Normal 5 NA 140 LAB L501.5600 3.5-5. mmol/L Normal 1 K 3.8 LAB L501.5900 98-107 mmol/L High CL 108 LAB L501.6100 21.0-3 mmol/L Normal 2.0 CO2 22.0 LAB L501.6200 5-15 Normal GAP 10 Performed By: #### L500.4050 #### [facility] [address] [place], [place], [id number] ,SERUM,HCG QUALI. Collected: Status: F Source: [place] 02/28/2018 10:03 AM REPOSITORY TYPE CODE TESTS RESULT OUT OF REFERENCE UNITS RANGE LAB L700.6700 =>Qualitative mIU/mL Normal HCG Qual < 1 triggr LAB L700.7000 0-9 Nonpreg Negative Normal HCGSQUAL NEGATIVE Performed By: #### L700.6800 #### [facility] [address] [place], [place], [address] ABDOMEN/PELVIS WITHOUT Observed: 02/28/2018 Status: F Source: [place] CONT 9:53 AM REPOSITORY [facility] Imaging Services [address] [place] [address] Abdomen/Pelvis without Cont MR#: [id number] Acct: [id number] Name: GERDA BYRNES Rep #: [id number] : 1980 F 37 From: Joseph Tinoco MD PCP: Grady CORTEZ MD,Jose Status: REG ER Study: Abdomen/Pelvis without Cont Date of Exam: 02/28/18 Exam# [id number] Ordering Dr: Kasey Andre DO STUDY: CT ABDOMEN AND PELVIS WITHOUT CONTRAST REASON FOR EXAM: Female, 37 years old. Right lower quadrant for 3 days RADIATION DOSAGE (If Supplied By Facility): CTDIvol = ( 22.66 ) mGy, DLP = ( 1228.68 ) mGycm TECHNIQUE: Transaxial images were obtained from the dome of the diaphragm to the symphysis pubis without oral contrast, and without intravenous contrast. Sagittal and coronal images were reconstructed. Individualized dose optimization techniques were used for this CT. COMPARISON: 08/09/2015 FINDINGS: The visualized lung bases are unremarkable. The visualized portions of the heart are within normal limits. Normal liver. There is non-visualization of the gallbladder, which may be secondary to either contraction or a prior cholecystectomy. Normal spleen. Normal pancreas. Normal bilateral adrenal glands. Normal right kidney. Normal left kidney. Normal visualized stomach. Normal small intestine. Mild fecal retention in the colon but no colon wall thickening. There is non-visualization of the appendix. No pericecal stranding or inflammation. Very small subcentimeter lymph nodes in the right lower quadrant but no dominant cameron mass. Normal abdominal aorta. Normal inferior vena cava. Normal retroperitoneum. Normal urinary bladder. Normal visualized uterus. 3.6 cm intermediate echogenicity cyst of the right ovary. No pelvic free fluid. IUD is noted. Normal abdominal wall. There are degenerative changes of the thoracolumbar spine. CT/Abdomen/Pelvis without Cont IMPRESSION: 1. No hydronephrosis or urinary tract calcifications. 2. 3.6 cm intermediate density right ovarian cyst could represent a hemorrhagic cyst. No pelvic free fluid or inflammation. 3. Nonvisualized appendix but no pericecal inflammation. Electronically Signed: Joseph Tinoco MD at 10:56 EST , Service support , CC: Jose Rasmussen III, MD; Kasey Andre DO Support Services Tech: Signed URGENT CARE VISIT Observed: 02/28/2018 Status: F Source: [place] REPORT 9:00 AM REPOSITORY [facility] [address] [place] [address] [address] [place] [address] OFFICE VISIT Date of Service: 02/28/18 MR#: [id number] Acct: [id number] Name: GERDA BYRNES Rep #: [id number] : 1980 Provider: JAGJIT Haney Age/Sex: 37/F [place] [facility] [place]: Signed Intake Vital Signs02/28/18 Height 5 ft 10 in Intake Visit Reasons: BLADDER INFECTION Chief Complaint: bladder infection General Passenger Agent Required: No Accompanied by: self Is patient in pain?: No Allergies TAPE Adverse Reaction (Uncoded 02/28/18 08:19) Rash Medications Diltiazem HCl [Diltiazem 24Hr ER] 240 mg PO DAILY 07/23/15 [History Confirmed 02/28/18] Omeprazole [Prilosec] 40 mg PO DAILY 07/23/15 [History Confirmed 02/28/18] Sumatriptan Succinate [Imitrex] 100 mg PO .X1 PRN 07/23/15 [History Confirmed 02/28/18] Losartan Potassium 50 mg PO DAILY 07/16/17 [History Confirmed 02/28/18] Metformin HCl [Glucophage Xr] 500 mg PO DAILY 07/16/17 [History Confirmed 02/28/18] Norethindrone AC-Eth Estradiol [Junel] 1 ea PO DAILY 07/16/17 [History Confirmed 02/28/18] hydroCHLOROthiazide [Hydrochlorothiazide] 12.5 mg PO DAILY 07/16/17 [History Confirmed 02/28/18] gabapentin 300 mg capsule 300 mg PO TID 11/19/17 [History Confirmed 02/28/18] topiramate 50 mg tablet 50 mg PO DAILY 11/19/17 [History Confirmed 02/28/18] [facility] Medical History History of migraine (Acute) PCOS (polycystic ovarian syndrome) (Acute) Hypertension (Chronic) Surgical History delivery delivered (Acute) Encounter for cholecystectomy (Acute) History of tonsillectomy (Acute) Family History Father Hypertension Cancer bladder Heart disease Multiple sclerosis Mother Hypertension Social History Smoking Status: Never smoker alcohol intake: never substance use type: does not use caffeine: Yes what type of physical activity do you participate in: none seatbelt use: always do you feel safe at home: Yes additional social history: [employer]- [employer] Patient is a dental hygenist HPI HPI Chief Complaint: bladder infection Details: GERDA BYRNES, is a 37 F who presents to the office today with a 3-day history of right lower quadrant abdominal pain. 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 The following day the pain was located in the right lower quadrant. She would like to rule out a bladder infection. The patient states that she is having no dysuria urgency or frequency when voiding. She does not notice any blood in the urine. The patient denies any prior abdominal surgeries. Her bowels have been moving normally. She reports no fevers chills or abdominal rigidity. ROS Const Constitutional: No chills or fever(s) Eyes Eyes: No change in vision ENT ENT: No ear pain, sore throat, nasal congestion or nasal discharge Resp Respiratory: No cough, chest congestion, shortness of breath or wheezing Cardio Cardiology: No chest pain at rest or chest pain with exertion Gastro GI: Positive for abdominal pain (Right lower quadrant, see HPI) and nausea/dyspepsia Musc Musculoskeletal: No back pain or abnormal walking Skin Skin: No rash or change in skin color Neuro Neurology: No confusion, abnormal walking or abnormal speech Psych Psychiatric: No confusion Aller/Imm Allergy/Immunologic: No wheezing Exam Const General: healthy appearing, comfortable [facility] Head: normocephalic, atraumatic Eyes General: appearance normal, both eyes and all related structures Resp Auscultation: Bilateral: Clear to Auscultation Cardio Rate: regular rate Rhythm: regular rhythm Heart Sounds: S1 normal, S2 normal GI Inspection: normal to inspection Auscultation: normal bowel sounds Percussion: normal to percussion Palpation: soft, tender (Positive McBurney's point) other; Negative for with no rebound tenderness Psych Appearance: grossly normal Results [facility] Office Urine Color YELLOW Last Edit by Elise Cazares on 02/28/18 08:20 Office Urine Clarity Clear Last Edit by Elise Cazares on 02/28/18 08:20 Assessment AND Plan Problems 1. RLQ abdominal pain R10.31 Plan The patient was informed that her exam findings were suspicious for possible appendicitis. It was recommended that she be evaluated in the emergency department. Patient voiced understanding. Her and her plan to go to the emergency department this morning if symptoms do not improve. Orders Orders: Coding Level of Care Code Off vis,est,level 3 Diagnoses RLQ abdominal pain R10.31 02/28/18 0900 <Electronically signed by Bobo DANIELSON> Date Bobo DANIELSON Cosigner Signature: Date (if applicable) CC: OFFICE VISIT REPORT Observed: 12/29/2017 Status: F Source: [place] 7:28 AM [place] [address] [place] [address] OFFICE VISIT Date of Service: 11/20/17 MR#: [id number] Acct: [id number] Patient: GERDA BYRNES Rep #: [id number] : 1980 Provider: Arabella Montilla Age/Sex: 37/F Location[place] [facility] Status: Signed Intake Vital Signs11/20/17 Temperature 98.0 F Intake Visit Reasons: FLU SHOT Chief Complaint: Breakthrough bleeding Allergies TAPE Adverse Reaction (Uncoded 12/04/17 16:09) Rash Medications Diltiazem HCl [Diltiazem 24Hr ER] 240 mg PO DAILY 07/23/15 [History Confirmed 12/04/17] Omeprazole [Prilosec] 40 mg PO DAILY 07/23/15 [History Confirmed 12/04/17] Sumatriptan Succinate [Imitrex] 100 mg PO .X1 PRN 07/23/15 [History Confirmed 12/04/17] Hydrochlorothiazide 12.5 mg PO DAILY 07/16/17 [History Confirmed 12/04/17] Losartan Potassium 50 mg PO DAILY 07/16/17 [History Confirmed 12/04/17] Metformin HCl [Glucophage Xr] 500 mg PO DAILY 07/16/17 [History Confirmed 12/04/17] Norethindrone AC-Eth Estradiol [Junel] 1 ea PO DAILY 07/16/17 [History Confirmed 12/04/17] gabapentin 300 mg capsule 300 mg PO TID 11/19/17 [History Confirmed 12/04/17] topiramate 50 mg tablet 50 mg PO DAILY 11/19/17 [History Confirmed 12/04/17] Office Meds Flucelvax Quad [id number] (PF) Performing Provider: JAGJIT Patricio Administered by: Arabella Montilla on 11/20/17 16:31 Dose Route Admin Location Lot Number Expiration Date [employer] 0.5 mL IM R deltoid [id number] 08/22/18 52423-278-80 SE[employer] Assessment AND Plan Orders Orders: Medications Discontinued: Flucelvax Quad [id number] (PF) (flu vac qs 2017(4 yr up)CD0.5 mL IM ONCE 0.5 mL 0RF NS Z23 (PF)) Discontinued Reason: Office Medication has been Documented as given 12/29/17 0728 <Electronically signed by Teddy DANIELSON> Date Teddy DANIELSON Cosigner Signature: Date (if applicable) CC: COIL ASSEMBLER OFFICE VISIT Observed: 12/06/2017 Status: F Source: [place] REPORT 6:04 AM [facility] [address] [place] [address] OFFICE VISIT Date of Service: 12/04/17 MR#: [id number] Acct: [id number] Name: GERDA BYRNES Rep #: [id number] : 1980 Provider: Liv Fung MD Age/Sex: 37/F [place] [facility] [place]: Signed Intake Vital Signs12/04/17 Height 5 ft 8.5 in 12/04/17 Weight: 325 lb 8 oz 12/04/17 Body Mass Index (BMI) 48.7 12/04/17 Blood Pressure 110/84 H Intake Visit Reasons: IUD insertion General Passenger Agent Required: No Is patient in pain?: No Allergies TAPE Adverse Reaction (Uncoded 12/04/17 16:09) Rash Medications Diltiazem HCl [Diltiazem 24Hr ER] 240 mg PO DAILY 07/23/15 [History Confirmed 12/04/17] Omeprazole [Prilosec] 40 mg PO DAILY 07/23/15 [History Confirmed 12/04/17] Sumatriptan Succinate [Imitrex] 100 mg PO .X1 PRN 07/23/15 [History Confirmed 12/04/17] Hydrochlorothiazide 12.5 mg PO DAILY 07/16/17 [History Confirmed 12/04/17] Losartan Potassium 50 mg PO DAILY 07/16/17 [History Confirmed 12/04/17] Metformin HCl [Glucophage Xr] 500 mg PO DAILY 07/16/17 [History Confirmed 12/04/17] Norethindrone AC-Eth Estradiol [Junel] 1 ea PO DAILY 07/16/17 [History Confirmed 12/04/17] gabapentin 300 mg capsule 300 mg PO TID 11/19/17 [History Confirmed 12/04/17] topiramate 50 mg tablet 50 mg PO DAILY 11/19/17 [History Confirmed 12/04/17] Is last menstrual period known: Yes Last Menstral Period: 11/30/17 Post menopausal: No Patient : No : No PFSH PFSH Medical History History of migraine (Acute) PCOS (polycystic ovarian syndrome) (Acute) Hypertension (Chronic) Surgical History delivery delivered (Acute) Encounter for cholecystectomy (Acute) History of tonsillectomy (Acute) Family History Father Hypertension Cancer bladder Heart disease Multiple sclerosis Mother Hypertension Social History Smoking Status: Never smoker alcohol intake: never substance use type: does not use caffeine: Yes what type of physical activity do you participate in: none seatbelt use: always do you feel safe at home: Yes 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 DateName GA/Weeks Outcome Route Bth WeighInfant GeLabor LgtAnesthesiDel LocatProvider FOB t n h a n HPI IUD insertion: Details: GERDA BYRNES is a 37 year old who presents for iud insetion Female Reproductive History Last Menstral Period: 11/30/17 ROS Const Constitutional: Reports system reviewed and no additional complaints, except as docu; denies chills, fever(s), weight loss or weight gain GI GI: Reports as per HPI; denies vomiting, nausea, constipation, cramping, bloating or abdominal pain : Reports as per HPI; denies vaginal dryness, vaginal discharge, urinary urgency, urinary frequency or urinary incontinence Exam Const General: cooperative, healthy appearing, comfortable, well developed Orientation: alert [facility] Head: normal to inspection Resp Effort AND Inspection: normal respiratory effort GI Inspection: normal to inspection, non-distended Palpation: soft, no hepatosplenomegaly, no guarding External Female Exam: normal external appearance, normal appearance of the urethra Urethra: normal appearance of the urethra Speculum Exam - Vagina: normal appearance of the vagina, normal vaginal discharge, no lesions Speculum Exam - Cervix: normal appearance of the cervix, nontender Bimanual Exam- Vagina AND Uterus: No cervical tenderness, normal bimanual exam, uterine mobility normal, uterine consistency normal, uterine shape normal, uterine size normal, uterus non-tender Bimanual Exam- Adnexa, other: normal adnexae, no adnexal masses Office Procedures Mirena IUD IUD GC/Chlamydia:: not done Test: Yes Negative Consent Signed: Yes Time out checklist: patient, procedure, site marked/identified, positioning of patient, supplies available, allergies confirmed, team agrees on procedure IUD: Yes Mirena Time out time: 16:40 Details: Sign in Communication: Completed Sign out documentation: Completed The uterus sounded to 8 cm. After prepping the cervix with betadine and using sterile technique, the cervix was grasped with a single tooth tenaculum and the IUD was inserted without difficulty and the string was cut to 3cm from the external os of the cervix. All instruments were removed from the vagina and excellent hemostasis was noted. Procedure Summary: patient tolerated the procedure well without complication. Office Meds levonorgestrel Performing Provider: Liv Fung MD Administered by: Zara Burns on 12/04/17 17:27 Dose Route Admin [facility] [employer] 1 insert Intrauterine [facility] [id number] 06/15/20 38773-659-14 [place] Assessment AND Plan Problems 1. Encounter for IUD insertion Z30.430 Plan iud placed without difficulty instructions given fu PRN Orders Orders: Medications Discontinued: levonorgestrel Discontinued Reason: Office1 insert Intrauterine ONCE 1 ea 0RF Z30.430 Medication has been Documented as given Coding Level of Care Code No Charge Diagnoses Encounter for IUD insertion Z30.430 Additional Codes IUD (46169) 12/06/17 0604 <Electronically signed by Liv Fung MD> Date Liv Fung MD Cosigner Signature: Date (if applicable) CC: TRANSVAGINAL Observed: 11/24/2017 Status: F Source: [place] NON- 2:31 PM REPOSITORY [facility] Imaging Services [address] [place] [address] [place] [address] Transvaginal Non- MR#: [id number] Acct: [id number] Name: GERDA BYRNES Rep #: [id number] : 1980 F 37 From: Bebo Mojica DO PCP: Jose Rasmussen III, MD Status: REG CLI Study: Transvaginal Non- Date of Exam: 11/24/17 Exam# [id number] Ordering Dr: Liv Fung MD STUDY: ULTRASOUND OF THE FEMALE PELVIS - COMPLETE REASON FOR EXAM: Female, 37 years old. Abnormal bleeding. LMP: October 28, 2017. TECHNIQUE: Transabdominal and Transvaginal TECHNICAL QUALITY: Adequate. COMPARISON: CT of the abdomen and pelvis, August 09, 2015. FINDINGS: The uterus is anteverted and is in a midline position. The uterus measures 8.8 x 4.6 x 3.8 cm. There is a Nabothian cyst of the cervix. The endometrium measures 4.7 mm in thickness, and is hyperechoic. There is no demonstrated endometrial mass. There is no demonstrated myometrial mass. I.U.D. - The patient does not have an I.U.D. The right ovary is visualized. The right ovary measures 3.9 x 2.5 x 2.2 cm. There is a 2.6 x 1.7 x 1.8 cm cyst. There is no visualized right adnexal mass or complex lesion. There is normal arterial and normal venous vascularity. The left ovary is visualized. The left ovary measures 3.2 x 3.3 x 2.0 cm. There is a 2.3 x 2.5 x 1.9 cm cyst. There is no visualized left adnexal mass or complex lesion. There is normal arterial and normal venous vascularity. There is no fluid in the cul-de-sac. The pre void volume of the bladder was 374 ml. The urinary bladder is grossly unremarkable. Polycystic ovary disease: No. US/Transvaginal Non- IMPRESSION: Bilateral ovarian cysts without uterine abnormality. Electronically Signed: Bebo oMjica DO at 22:44 EDT Tel [phone], Service support , CC: Jose Rasmussen III, MD; Liv Fung MD Support Services Tech: Signed PELVIC (NON ) Observed: 11/24/2017 Status: F Source: [place] 1:46 PM REPOSITORY [facility] Imaging Services [address] [place] [address] Pelvic (Non ) MR#: [id number] Acct: [id number] Name: GERDA BYRNES Rep #: [id number] : 1980 F 37 From: Bebo Mojica DO PCP: Jose Rasmussen III, MD Status: REG CLI Study: Pelvic (Non ) Date of Exam: 11/24/17 Exam# [id number] Ordering Dr: Liv Fung MD STUDY: ULTRASOUND OF THE FEMALE PELVIS - COMPLETE REASON FOR EXAM: Female, 37 years old. Abnormal bleeding. LMP: October 28, 2017. TECHNIQUE: Transabdominal and Transvaginal TECHNICAL QUALITY: Adequate. COMPARISON: CT of the abdomen and pelvis, August 09, 2015. FINDINGS: The uterus is anteverted and is in a midline position. The uterus measures 8.8 x 4.6 x 3.8 cm. There is a Nabothian cyst of the cervix. The endometrium measures 4.7 mm in thickness, and is hyperechoic. There is no demonstrated endometrial mass. There is no demonstrated myometrial mass. I.U.D. - The patient does not have an I.U.D. The right ovary is visualized. The right ovary measures 3.9 x 2.5 x 2.2 cm. There is a 2.6 x 1.7 x 1.8 cm cyst. There is no visualized right adnexal mass or complex lesion. There is normal arterial and normal venous vascularity. The left ovary is visualized. The left ovary measures 3.2 x 3.3 x 2.0 cm. There is a 2.3 x 2.5 x 1.9 cm cyst. There is no visualized left adnexal mass or complex lesion. There is normal arterial and normal venous vascularity. There is no fluid in the cul-de-sac. The pre void volume of the bladder was 374 ml. The urinary bladder is grossly unremarkable. Polycystic ovary disease: No. US/Pelvic (Non ) IMPRESSION: Bilateral ovarian cysts without uterine abnormality. Electronically Signed: Bebo Mojica DO at 22:44 EDT Tel [phone], Service support , CC: Jose Rasmussen III, MD; Liv Fung MD Support Services Tech: Signed COIL ASSEMBLER OFFICE VISIT Observed: 11/19/2017 Status: F Source: [place] REPORT 3:37 PM [facility] [address] [place] [address] OFFICE VISIT Date of Service: 11/19/17 MR#: [id number] Acct: [id number] Name: GERDA BYRNES Rep #: [id number] : 1980 Provider: Liv Fung MD Age/Sex: 37/F [place] [facility] [place]: Signed Intake Vital Signs11/19/17 Height 5 ft 8.5 in 11/19/17 Weight: 326 lb 11/19/17 Body Mass Index (BMI) 48.8 11/19/17 Blood Pressure 140/104 H Intake Visit Reasons: BREAKTHROUGH BLEEDING- CHANGE BC? Chief Complaint: Breakthrough bleeding General Passenger Agent Required: No Is patient in pain?: No Allergies TAPE Adverse Reaction (Uncoded 11/19/17 15:17) Rash Medications Diltiazem HCl [Diltiazem 24Hr ER] 240 mg PO DAILY 07/23/15 [History Confirmed 11/19/17] Omeprazole [Prilosec] 40 mg PO DAILY 07/23/15 [History Confirmed 11/19/17] Sumatriptan Succinate [Imitrex] 100 mg PO .X1 PRN 07/23/15 [History Confirmed 11/19/17] Hydrochlorothiazide 12.5 mg PO DAILY 07/16/17 [History Confirmed 11/19/17] Losartan Potassium 50 mg PO DAILY 07/16/17 [History Confirmed 11/19/17] Metformin HCl [Glucophage Xr] 500 mg PO DAILY 07/16/17 [History Confirmed 11/19/17] Norethindrone AC-Eth Estradiol [Junel] 1 ea PO DAILY 07/16/17 [History Confirmed 11/19/17] gabapentin 300 mg capsule 300 mg PO TID 11/19/17 [History Confirmed 11/19/17] topiramate 50 mg tablet 50 mg PO DAILY 11/19/17 [History Confirmed 11/19/17] Is last menstrual period known: Yes Last Menstral Period: 11/12/17 Post menopausal: No Patient : No : No PFSH Medical History History of migraine (Acute) PCOS (polycystic ovarian syndrome) (Acute) Hypertension (Chronic) Surgical History delivery delivered (Acute) Encounter for cholecystectomy (Acute) History of tonsillectomy (Acute) Family History Father Hypertension Cancer bladder Heart disease Multiple sclerosis Mother Hypertension Social History Smoking Status: Never smoker alcohol intake: never substance use type: does not use caffeine: Yes what type of physical activity do you participate in: none seatbelt use: always do you feel safe at home: Yes 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 she has done an IUD in the past and had difficulties and had to have it removed. she has a history of pcos. she has menstrual migraines. she has been suggested to take gastric bypass and she isn't wanting them. Female Reproductive History Last Menstral Period: 11/12/17 Questions: Metorrhagia: No, Sexually active: Yes, Dyspareunia: No, PCB: No Pregancy History 2 Elective abortions Hx Para 2 Spontaneous abortions Past Pregnancies Del. DateName GA/Weeks Outcome Route Bth WeighInfant GeLabor LgtAnesthesiDel LocatProvider FOB t n h a n ROS Const Constitutional: Reports system reviewed and no additional complaints, except as docu GI GI: Denies abdominal pain, nausea, vomiting or cramping : Denies urinary frequency, vaginal dryness, vaginal discharge, urinary urgency, urinary incontinence, vaginal odor or pelvic pain Exam Const General: cooperative, healthy appearing, comfortable, no acute distress Nutritional Appearance: average body habitus Orientation: alert [facility] Head: normal to inspection, normocephalic Ears: hearing grossly normal bilaterally, external ears normal Nose: external nose normal, nares normal Face and sinus: normal facial exam Neck Neck: normal visual inspection, trachea midline, no lymphadenopathy Thyroid: thyroid normal Resp Effort AND Inspection: normal respiratory effort GI Inspection: normal to inspection Palpation: soft, nontender Other: Incisions: C/D/I Musc Other: gross motor intact no deficits, full bilateral strength Skin General: no rashes or lesions noted Neuro Motor: muscle tone normal throughout Assessment AND Plan Problems 1. Other specified abnormal uterine and vaginal bleeding N93.8 2. PCOS (polycystic ovarian syndrome) E28.2 Plan discussed iud versus ablation versus hysterectomy. plan iud. schedule us Coding Level of Care Code Off vis,est,level 3 Diagnoses Other specified abnormal uterine and vaginal bleeding N93.8 PCOS (polycystic ovarian syndrome) E28.2 11/19/17 1537 <Electronically signed by Liv Fung MD> Date Liv Fung MD Cosigner Signature: Date (if applicable) CC: CBC Collected: 11/17/2017 Status: F Source: [place] 8:53 AM [facility] REPOSITORY TYPE CODE TESTS RESULT OUT OF REFERENCE UNITS RANGE LAB WBC 3.70-11.00 k/uL WBC 5.37 LAB RBC 3.90-5.20 m/uL RBC 4.62 LAB HGB 11.5-15.5 g/dL Hemoglobin 13.1 LAB HCT 36.0-46.0 % Hematocrit 42.1 LAB MCV 80.0-100.0 fL MCV 91.1 LAB MCH 26.0-34.0 pG MCH 28.4 LAB MCHC 30.5-36.0 g/dL MCHC 31.1 LAB RDWCV 11.5-15.0 % RDW-CV 12.6 LAB PLTCT 150-400 k/uL Platelet High Count 416 LAB MPV 9.0-12.7 fL MPV 9.7 LAB ABSNUC <0.01 k/uL Absolute nRBC <0.01 Performed By: #### CBC, HBA1C, CMP, LIPB #### [facility] [address] [place], [place] [address] HEMOGLOBIN A1C Collected: 11/17/2017 Status: F Source: [place] 8:53 AM [facility] REPOSITORY TYPE CODE TESTS RESULT OUT OF REFERENCE UNITS RANGE LAB HGBA1C 4.3-5.6 % Hemoglobin A1c 5.0 LAB HBA0 mg/dL Est. Average Glucose 97 Result Comment: eAG: (Estimated average glucose) is a calculated value from HgbA1c and is client service representative of the average blood glucose level in the last 2-3 month period. Performed By: #### CBC, HBA1C, CMP, LIPB #### [facility] [address] [place], [place] [address] COMP METABOLIC PANEL Collected: 11/17/2017 Status: F Source: [place] 8:53 AM [facility] REPOSITORY TYPE CODE TESTS RESULT OUT OF REFERENCE UNITS RANGE LAB TP 6.3-8.0 g/dL Protein, Total 7.1 LAB ALB 3.9-4.9 g/dL Albumin 4.1 LAB CA 8.5-10.2 mg/dL Calcium, Total 9.6 LAB TBIL 0.2-1.3 mg/dL Bilirubin, Total 0.5 LAB ALKP 32-117 U/L Alkaline Phosphatase 68 LAB AST 13-35 U/L AST 16 LAB GLU 74-99 mg/dL Glucose 83 Result Comment: The [place] [employer] (ADA) provides guidance for cutoff values for fasting glucose and random glucose. The ADA defines fasting as no caloric intake for at least 8 hours. Fas ting plasma glucose results between 100 to 125 mg/dL indicate increased risk for diabetes (prediabetes). Fasting plasma glucose results greater than or equal to 126 mg/dL meet the criteria for diagnosis of diabetes. In the absence of unequivocal hyperglycemia, results should be confirmed by repeat testing. In a patient with classic symptoms of hyperglycemia or hyperglycemic crisis, random plasma glucose results greater than or equal to 200 mg/dL meet the criteria for diagnosis of diabetes. Reference: Standards of Medical Care in Diabetes 2016, [place] [employer]. Diabetes Care. 2016.39(Suppl 1). LAB BUN 7-21 mg/dL BUN 13 LAB CRET 0.58-0.96 mg/dL Creatinine 0.92 LAB NA 136-144 mmol/L Sodium 138 LAB K 3.7-5.1 mmol/L Potassium 3.9 LAB CL 97-105 mmol/L Chloride 104 LAB CO2 22-30 mmol/L CO2 24 LAB AGAP 9-18 mmol/L Anion Gap 10 LAB ALT 7-38 U/L ALT 15 LAB GFRAA eGFR- Amer. >60 LAB GFRNAA . eGFR-All Other Races >60 Result Comment: eGFR (Estimated GFR) Units of measure: mL/min/1.73 meters squared eGFR is derived from the reexpressed MDRD Study equation using the following parameters: serum creatinine, age, gender and race. The creatinine assay has been calibrated to be traceable to IDMS. An eGFR <60 mL/min/1.73m2 for >3 months is consistent with chronic kidney disease. Refer to KDOQI guidelines for clinical interpretation. In patients with unstable renal function, e.g. those with acute kidney injury, the eGFR may not accurately reflect actual GFR. Performed By: #### CBC, HBA1C, CMP, LIPB #### [facility] [address], [place] [address] LIPID PANEL, BASIC Collected: 11/17/2017 Status: F Source: [place] 8:53 AM [facility] REPOSITORY TYPE CODE TESTS RESULT OUT OF REFERENCE UNITS RANGE LAB CHOL <200 mg/dL Cholesterol 160 Result Comment: <200 mg/dL, Desirable 200-239 mg/dL, Borderline high >239 mg/dL, High LAB TRIGLY <150 mg/dL Triglyceride 135 Result Comment: <150 mg/dL, Normal 150-199 mg/dL, Borderline high 200-499 mg/dL, High >499 mg/dL, Very high LAB HDL >39 mg/dL HDL-Cholesterol 45 Result Comment: 40-59 mg/dL, Acceptable >59 mg/dL, High: Negative risk factor for coronary heart disease <40 mg/dL, Low: Positive risk factor for coronary heart disease LAB LDL <100 mg/dL LDL-Cholesterol 88 Result Comment: <100 mg/dL, Optimal 100-129 mg/dL, Near optimal/above optimal 130-159 mg/dL, Borderline high 160-189 mg/dL, High >189 mg/dL, Very high Secondary prevention optimal LDL Cholesterol levels are recommended to be < 70 mg/dL LAB NONHDL <130 mg/dL Non HDL Cholesterol 115 Result Comment: <130 mg/dL, Optimal 130-159 mg/dL, Near optimal/above optimal 160-189 mg/dL, Borderline high 190-219 mg/dL, High >219 mg/dL, Very high Secondary prevention optimal non HDL Cholesterol levels are recommended to be < 100 mg/dL LAB FT hrs Fasting Time 15 LAB VLDL <30 mg/dL VLDL Cholesterol 27 LAB TCHDL <5.10 TC:HDL Ratio 3.56 LAB LDLHDL <2.54 LDL:HDL Ratio 1.96 Result Comment: Reference: 1. National Cholesterol Education Program ATP III Guideline At-A-Glance Quick Desk Reference: National Heart, Lung, and Blood [place]. National Institutes of Health. 2001: NIH Publication No. 01-3305. 2. An International Atherosclerosis Society position paper: global recommendations for the management of dyslipidemia: executive summary, Atherosclerosis. 2014: 232(2):410-413. Performed By: #### CBC, HBA1C, CMP, LIPB #### [facility] [address], [place] [address] PROGRESS Observed: 11/12/2017 Status: COMPLETED Source: [place] 1:41 PM [facility] REPOSITORY O ID: [id number] Author: Garret Mariee Service: (none) Author Type: Physician Type: Progress Notes Filed: 12/23/2017 11:52 AM Note Text: Last visit: November 13, 2016 Reason for last: Labile Hypertension and PCOS HISTORY OF PRESENT ILLNESS; Ms. Byrnes is a 36 year old woman came for follow up regarding Labile HTN and PCOS. Toward the end of her her BP was higher side, Dec 2011 she had her second . 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 Till 190/125 mm Hg, feet was swollen and headage on July 24, 2015, that time chorthalidone was added and d/erick home. Then she went to see her PCP (July 25, 2015 ) and Lisinopril was added. August 09, 2015 she went back for BP check and now stable on 3 meds. April 10, 2016: not watching diet, not doing any exercise, no headaches, recently taking amoxicillin for sinus infection, November 13, 2016: BP is more stable, trying low carb diet, November 12, 2017: was doing low carb diet and lost 35 lbs but her [id number] was hospitalized and she was eating hospital food, and gained weight back, recently having irregular mens, Severity, modifying factors, context and associated signs and symptoms are as follows: November 12, 2017 ? Hypertension: yes: since 2011, now better control on meds ? Palpitations: no, ? Diaphoresis: yes: came back recently, at night ? Headache: yes: has h/o migraines, more related mens, no mens since june and no migraine, but some dull headaches ? Pallor: no ? Tremor: no ? Proximal Muscle Weakness: no ? Thin Skin: no, no more thin ? Flushing: yes: every night, occasional 2 times a day in addition to night, less often ? Hirsutism: no, minimal Overall, patient has no acute complaints at this time. 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 - Other and unspecified ovarian cyst Ovarian cyst - Other forms of migraine - Painful menstrual periods - Trigeminal neuralgia 07/17/2017 - Vaginal bleeding, abnormal - Vaginismus PAST SURGICAL HISTORY Procedure Laterality Date - DELIVERY ONLY 01/20/12 , low transverse - COLONOSCOP W/ OR W/O BRSH SPEC 11/18/06 - EGD W/O BRSH SPECIMEN W/BX 11/18/06 PYLORITEK-NEGATIVE - IUD REMOVAL - LAP CHOLECYSTECT/CHOLANGIOGRAPHY 09/13/07 - REMOVAL GALLBLADDER - REMOVAL OF TONSILS,<12 Y/O Tonsillectomy FAMILY HISTORY Problem Relation Age of Onset - Hypertension Mother - Hypertension Father - other (MS) Father - other (Neoplasm of bladder) Father - other (pulmonary embolism) Father - other (A-fib) Father - Diabetes Maternal Grandmother - Hypertension Maternal Grandmother - COPD Maternal Grandmother - Thyroid Maternal Grandmother - Hypertension Maternal Grandfather - Hypertension Paternal Grandmother - Heart Paternal Grandmother - Hypertension Paternal Grandfather - Heart Paternal Grandfather - Ischemic Heart Disease Other Paternal Grandparent Social History Marital status: Spouse name: RD Years of education: 15 Number of children: 2 Occupational History Occupation Employer Comment Dental Hygenist Social History Main Topics Smoking status: Never Smoker Smokeless tobacco: Never Used Alcohol use: No Drug use: No Sexual activity: Yes Partners with: Male control/protection: Pill Comment: Practices safe sex Other Topics Concern Service No Blood Transfusions No Caffeine Concern Yes Comment:rare Occupational Exposure Yes Hobby Hazards No Sleep Concern Yes Stress Concern Yes Comment:family member in hospital Weight Concern Yes Comment:Low-carb diet Special Diet Yes Comment:Low-carb Back Care No Exercise No Bike Helmet No Seat Belt Yes Self-Exams Yes Family and social history reviewed and updated in the system. Current Outpatient Prescriptions: gabapentin (NEURONTIN) 300 mg capsule Take 300 mg by mouth three times daily. Disp: Rfl: SUMAtriptan (IMITREX) 100 mg tablet TAKE 1 TABLET BY MOUTH NEEDED AT ONSET OF HEADACH, MAY REPEAT IN 2 HOURS NEEDED. MAX 2 TABLETS Disp: 27 tablet Rfl: 2 topiramate (TOPAMAX) 50 mg tablet Take 1 tablet by mouth once daily. Disp: 90 tablet Rfl: 3 diltiazem CD (CARDIZEM CD, CARTIA XT) 240 mg 24 hr capsule TAKE 1 CAPSULE BY MOUTH ONCE DAILY. Disp: 90 capsule Rfl: 3 hydroCHLOROthiazide (HYDRODIURIL, ESIDRIX) 12.5 mg tablet Take 12.5 mg by mouth once daily. Disp: Rfl: BD ALLERGY SYRINGE 1 mL 28 gauge x 1/2 syrg Disp: Rfl: Norethindrone Acet-Ethinyl Est (MICROGESTIN 03/14) 1-20 mg- mcg per tablet Take 1 tablet by mouth once daily. continous Disp: 4 Package Rfl: 5 Omeprazole 40 mg capsule TAKE ONE CAPSULE BY MOUTH EVERY DAY Disp: 90 capsule Rfl: 0 losartan (COZAAR) 50 mg tablet Take 1 tablet by mouth once daily. Disp: 90 tablet Rfl: 3 metFORMIN ER (GLUCOPHAGE XR) 500 mg 24 hr tablet Take 1 tablet by mouth twice daily with meals. Disp: 180 tablet Rfl: 3 carBAMazepine XR (TEGRETOL XR) 100 mg 12 hr tablet 100mg + 200mg = 300mg by mouth twice/day Disp: 60 tablet Rfl: 11 carBAMazepine (TEGRETOL) 200 mg tablet 100mg + 200mg = 300mg by mouth twice/day Disp: 60 tablet Rfl: 11 diltiazem CD (CARDIZEM CD) 240 mg 24 hr capsule Take 1 capsule by mouth once daily. Disp: 90 capsule Rfl: 3 No current facility-administered medications for this visit. Allergies As of Date: 11/12/2017 Allergen Noted Reaction ADHESIVE TAPE (ROSINS) 05/04/2012 Rash ANTIHISTAMINES - ALKYLAMINE 09/11/2015 Other: See Comments ENVIRONMENTAL [OTHER] 11/05/2006 LATEX 06/05/2011 Rash LISINOPRIL 09/24/2015 Cough RHINOCORT [BUDESONIDE] 11/01/2004 Other: See Comments Fully Assessed 11/12/2017 REVIEW OF SYSTEMS: November 12, 2017 General: gained back 30lbs since last visit, no fever, or chills, Skin: no rash, pruritis or dry skin, legs are dry and itchy Eyes: no blurred or double vision or eye pain Cardiac: normal, no more palpations Resp: denies wheezing, productive cough or exertional dyspnea Hematologic: Anemia, Easy bleeding and Bruising Genitourinary: denies nocturia,polyuria Other systems were reviewed per HPI. PHYSICAL EXAM: BP 129/86 (BP Site: Left Arm, BP Position: Sitting, BP Cuff Size: Regular Adult) Pulse 80 Ht 171.5 cm (5' 7.52) Wt (!) 146.9 kg (323 lb 12.8 oz) LMP 11/04/2017 SpO2 100% BMI 49.94 kg/m? November 12, 2017 General: alert, in no acute distress, Morbidly obese Skin: color, texture, turgor normal, no rashes or lesions Head:normocephalic, no masses, lesions, tenderness or abnormalities. Eyes: Anicteric sclera. Pupils are equally round and reactive to light. Extraocular movements are intact. Oropharynx: Lips, mucosa, and tongue normal, teeth and gums normal, oropharynx normal Neck: Supple, no adenopathy; thyroid symmetric, normal size, no bruits Heart: RRR without murmur, gallop, or rubs. No ectopy Abdomen: soft, non-tender, positive bowel sounds Extremities: no edema, no calluses or ulcers present. Peripheral Pulses: posterior tibial and doralis pedis pulses 2+ and symmetrical DATA: All pertinent data and imaging studies were reviewed during this consultation. CLINICIAN'S INDEPENDENT IMAGE INTERPRETATION: N.B.: Images pulled in the PACS and I independently reviewed the CT image from Aug 09, 2015. Component Latest Ref Rng AND Units 11/14/2016 Protein, Total 6.3 - 8.0 g/dL 7.4 Albumin 3.9 - 4.9 g/dL 4.0 Calcium 8.5 - 10.2 mg/dL 9.5 Bilirubin, Total 0.2 - 1.3 mg/dL 0.3 Alkaline Phosphatase 32 - 117 U/L 70 AST 13 - 35 U/L 13 Glucose 74 - 99 mg/dL 90 BUN 7 - 21 mg/dL 16 Creatinine 0.58 - 0.96 mg/dL 0.89 Sodium 136 - 144 mmol/L 139 Potassium 3.7 - 5.1 mmol/L 4.4 Chloride 97 - 105 mmol/L 102 CO2 22 - 30 mmol/L 24 Anion Gap 9 - 18 mmol/L 13 ALT 7 - 38 U/L 11 eGFR- >60 eGFR-All Other Races . >60 WBC 3.70 - 11.00 k/uL 5.77 RBC 3.90 - 5.20 m/uL 4.78 Hemoglobin 11.5 - 15.5 g/dL 13.3 Hematocrit 36.0 - 46.0 % 42.3 MCV 80.0 - 100.0 fL 88.5 MCH 26.0 - 34.0 pG 27.8 MCHC 30.5 - 36.0 g/dL 31.4 RDW-CV 11.5 - 15.0 % 13.2 Platelet Count 150 - 400 k/uL 419 (H) MPV 9.0 - 12.7 fL 9.7 Absolute nRBC 0.00 k/uL 0.00 Uric Acid 2.5 - 6.6 mg/dL 5.0 TSH 0.400 - 5.500 uU/mL 0.851 Component Latest Ref Rng 09/06/2015 09/07/2015 09/11/2015 Triglyceride 30 - 149 mg/dL 92 Cholesterol 100 - 199 mg/dL 184 HDL Cholesterol >55 mg/dL 50 (L) VLDL Cholesterol 6 - 40 mg/dL 18 LDL Cholesterol 60 - 129 mg/dL 116 Fasting Time hrs fasting TC:HDL Ratio 1.00 - 5.00 3.68 LDL:HDL Ratio 0.50 - 3.55 2.32 Non HDL Cholesterol 90 - 159 mg/dL 134 Cortisol, Saliva ng/dL <50 <50 AM Cortisol Saliva Not Applicable Not Applicable PM Cortisol Saliva Not Applicable Not Applicable Midnight Cortisol Saliva Not Applicable Not Applicable Testosterone 20 - 70 ng/dL 45 Testosterone Free % 0.8 - 2.3 % 1.2 Testosterone Free 1.8 - 10.4 pg/mL 5.4 Creatinine 0.70 - 1.40 mg/dL 0.95 eGFR- >60 eGFR-All Other Races . >60 Aldosterone 3.1 - 35.4 ng/dL 8.7 Renin Activity ug/L/hr 5.4 Aldosterone/Renin Act Rat <20 2 Hemoglobin A1C 4.3 - 5.6 % 5.5 Estimated Average Glucose mg/dL 111 Metanephrine, Plasma 12 - 67 pg/mL <15 Normetanephrine, Free Plasma 18 - 101 pg/mL 24 TSH 0.400 - 5.500 uU/mL 1.110 Prolactin 2.0 - 17.4 ng/mL 8.8 DHEA-S 10.0 - 221.0 ug/dL 71.4 Hydroxyprogesterone ng/dL 49.7 Progesterone ng/mL 0.2 FSH mU/mL 6.5 LH mU/mL 7.7 Insulin 1 - 24 uU/mL 16.4 Glucose, Fasting 65 - 100 mg/dL 85 ACTH 8 - 42 pg/mL 21 Cortisol ug/dL 21.9 ASSESSMENT: Ms. Byrnes is a 36 year old woman came for follow up visit regarding Labile Hypertension, PCOS and few other medical concerns as below. RECOMMENDATIONS: (E28.2) PCOS (polycystic ovarian syndrome) (primary encounter diagnosis) Comment: pathophysiology AND treatment options discussed. Low card diet and exercise, as well as food supplements discussed in detail including drinks, snacks, mouth refreshments, and major meals, all questions related to her food and drinks answered. importance of metformin and regular exercise discussed. Plan: CONSULT TO NUTRITION THERAPY, COMP METABOLIC PANEL, CBC, HGB A1C, metFORMIN ER (GLUCOPHAGE XR) 500 mg 24 hr tablet (E66.01) Morbid obesity (HCC) Comment: pathophysiology AND treatment options discussed. Diet, exercise and food supplement discussed. Plan: CONSULT TO NUTRITION THERAPY, COMP METABOLIC PANEL, CBC, HGB A1C, metFORMIN ER (GLUCOPHAGE XR) 500 mg 24 hr tablet (E88.81) Insulin resistance Comment: pathophysiology AND treatment options discussed. metformin and exercise will help. Plan: COMP METABOLIC PANEL, CBC, HGB A1C, metFORMIN ER (GLUCOPHAGE XR) 500 mg 24 hr tablet (I10) Essential hypertension, benign Comment: clinically stable on current Rx. continue current Rx. Plan: COMP METABOLIC PANEL, CBC (E78.5) Dyslipidemia Comment: check level AND Rx as needed. Plan: COMP METABOLIC PANEL, CBC, LIPID PANEL BASIC, metFORMIN ER (GLUCOPHAGE XR) 500 mg 24 hr tablet (R73.09) Impaired glucose metabolism Comment: pathophysiology AND treatment options discussed. Metformin foe now. encouraged low carb diet and regular exercise. Plan: metFORMIN ER (GLUCOPHAGE XR) 500 mg 24 hr tablet Garret Mariee MD November 12, 2017 CNOV Observed: 11/12/2017 Status: COMPLETED Source: [place] 1:25 PM [facility] REPOSITORY Office Visit (MARSHA) APOORVAGERDA ([id number]) 1980 F Date Time Provider Department 11/12/17 1:25 PM GARRET MARIEE During your visit today, we recorded the following information about you: Pulse Blood pressure Weight Height 80/minute 129/86 146.9 kg 1.715 m Last Period 11/04/17 Garret Mariee MD 12/23/2017 11:52 AM Signed Last visit: November 13, 2016 Reason for last: Labile Hypertension and PCOS HISTORY OF PRESENT ILLNESS; Ms. Byrnes is a 36 year old woman came for follow up regarding Labile HTN and PCOS. Toward the end of her her BP was higher side, Dec 2011 she had her second . 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 Till 190/125 mm Hg, feet was swollen and headage on July 24, 2015, that time chorthalidone was added and d/erick home. Then she went to see her PCP (July 25, 2015 ) and Lisinopril was added. August 09, 2015 she went back for BP check and now stable on 3 meds. April 10, 2016: not watching diet, not doing any exercise, no headaches, recently taking amoxicillin for sinus infection, November 13, 2016: BP is more stable, trying low carb diet, November 12, 2017: was doing low carb diet and lost 35 lbs but her [id number] was hospitalized and she was eating hospital food, and gained weight back, recently having irregular mens, Severity, modifying factors, context and associated signs and symptoms are as follows: November 12, 2017 ? Hypertension: yes: since 2011, now better control on meds ? Palpitations: no, ? Diaphoresis: yes: came back recently, at night ? Headache: yes: has h/o migraines, more related mens, no mens since june and no migraine, but some dull headaches ? Pallor: no ? Tremor: no ? Proximal Muscle Weakness: no ? Thin Skin: no, no more thin ? Flushing: yes: every night, occasional 2 times a day in addition to night, less often ? Hirsutism: no, minimal Overall, patient has no acute complaints at this time. 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 - Other and unspecified ovarian cyst Ovarian cyst - Other forms of migraine - Painful menstrual periods - Trigeminal neuralgia 07/17/2017 - Vaginal bleeding, abnormal - Vaginismus PAST SURGICAL HISTORY Procedure Laterality Date - DELIVERY ONLY 01/20/12 , low transverse - COLONOSCOP W/ OR W/O BRSH SPEC 11/18/06 - EGD W/O BRSH SPECIMEN W/BX 11/18/06 PYLORITEK-NEGATIVE - IUD REMOVAL - LAP CHOLECYSTECT/CHOLANGIOGRAPHY 09/13/07 - REMOVAL GALLBLADDER - REMOVAL OF TONSILS,<12 Y/O Tonsillectomy FAMILY HISTORY Problem Relation Age of Onset - Hypertension Mother - Hypertension Father - other (MS) Father - other (Neoplasm of bladder) Father - other (pulmonary embolism) Father - other (A-fib) Father - Diabetes Maternal Grandmother - Hypertension Maternal Grandmother - COPD Maternal Grandmother - Thyroid Maternal Grandmother - Hypertension Maternal Grandfather - Hypertension Paternal Grandmother - Heart Paternal Grandmother - Hypertension Paternal Grandfather - Heart Paternal Grandfather - Ischemic Heart Disease Other Paternal Grandparent Social History Marital status: Spouse name: RD Years of education: 15 Number of children: 2 Occupational History Occupation Employer Comment Dental Hygenist Social History Main Topics Smoking status: Never Smoker Smokeless tobacco: Never Used Alcohol use: No Drug use: No Sexual activity: Yes Partners with: Male control/protection: Pill Comment: Practices safe sex Other Topics Concern Service No Blood Transfusions No Caffeine Concern Yes Comment:rare Occupational Exposure Yes Hobby Hazards No Sleep Concern Yes Stress Concern Yes Comment:family member in hospital Weight Concern Yes Comment:Low-carb diet Special Diet Yes Comment:Low-carb Back Care No Exercise No Bike Helmet No Seat Belt Yes Self-Exams Yes Family and social history reviewed and updated in the system. Current Outpatient Prescriptions: gabapentin (NEURONTIN) 300 mg capsule Take 300 mg by mouth three times daily. Disp: Rfl: SUMAtriptan (IMITREX) 100 mg tablet TAKE 1 TABLET BY MOUTH NEEDED AT ONSET OF HEADACH, MAY REPEAT IN 2 HOURS NEEDED. MAX 2 TABLETS Disp: 27 tablet Rfl: 2 topiramate (TOPAMAX) 50 mg tablet Take 1 tablet by mouth once daily. Disp: 90 tablet Rfl: 3 diltiazem CD (CARDIZEM CD, CARTIA XT) 240 mg 24 hr capsule TAKE 1 CAPSULE BY MOUTH ONCE DAILY. Disp: 90 capsule Rfl: 3 hydroCHLOROthiazide (HYDRODIURIL, ESIDRIX) 12.5 mg tablet Take 12.5 mg by mouth once daily. Disp: Rfl: BD ALLERGY SYRINGE 1 mL 28 gauge x 1/2 syrg Disp: Rfl: Norethindrone Acet-Ethinyl Est (MICROGESTIN 03/14) 1-20 mg- mcg per tablet Take 1 tablet by mouth once daily. continous Disp: 4 Package Rfl: 5 Omeprazole 40 mg capsule TAKE ONE CAPSULE BY MOUTH EVERY DAY Disp: 90 capsule Rfl: 0 losartan (COZAAR) 50 mg tablet Take 1 tablet by mouth once daily. Disp: 90 tablet Rfl: 3 metFORMIN ER (GLUCOPHAGE XR) 500 mg 24 hr tablet Take 1 tablet by mouth twice daily with meals. Disp: 180 tablet Rfl: 3 carBAMazepine XR (TEGRETOL XR) 100 mg 12 hr tablet 100mg + 200mg = 300mg by mouth twice/day Disp: 60 tablet Rfl: 11 carBAMazepine (TEGRETOL) 200 mg tablet 100mg + 200mg = 300mg by mouth twice/day Disp: 60 tablet Rfl: 11 diltiazem CD (CARDIZEM CD) 240 mg 24 hr capsule Take 1 capsule by mouth once daily. Disp: 90 capsule Rfl: 3 No current facility-administered medications for this visit. Allergies As of Date: 11/12/2017 Allergen Noted Reaction ADHESIVE TAPE (ROSINS) 05/04/2012 Rash ANTIHISTAMINES - ALKYLAMINE 09/11/2015 Other: See Comments ENVIRONMENTAL [OTHER] 11/05/2006 LATEX 06/05/2011 Rash LISINOPRIL 09/24/2015 Cough RHINOCORT [BUDESONIDE] 11/01/2004 Other: See Comments Fully Assessed 11/12/2017 REVIEW OF SYSTEMS: November 12, 2017 General: gained back 30lbs since last visit, no fever, or chills, Skin: no rash, pruritis or dry skin, legs are dry and itchy Eyes: no blurred or double vision or eye pain Cardiac: normal, no more palpations Resp: denies wheezing, productive cough or exertional dyspnea Hematologic: Anemia, Easy bleeding and Bruising Genitourinary: denies nocturia,polyuria Other systems were reviewed per HPI. PHYSICAL EXAM: BP 129/86 (BP Site: Left Arm, BP Position: Sitting, BP Cuff Size: Regular Adult) Pulse 80 Ht 171.5 cm (5' 7.52) Wt (!) 146.9 kg (323 lb 12.8 oz) LMP 11/04/2017 SpO2 100% BMI 49.94 kg/m? November 12, 2017 General: alert, in no acute distress, Morbidly obese Skin: color, texture, turgor normal, no rashes or lesions Head:normocephalic, no masses, lesions, tenderness or abnormalities. Eyes: Anicteric sclera. Pupils are equally round and reactive to light. Extraocular movements are intact. Oropharynx: Lips, mucosa, and tongue normal, teeth and gums normal, oropharynx normal Neck: Supple, no adenopathy; thyroid symmetric, normal size, no bruits Heart: RRR without murmur, gallop, or rubs. No ectopy Abdomen: soft, non-tender, positive bowel sounds Extremities: no edema, no calluses or ulcers present. Peripheral Pulses: posterior tibial and doralis pedis pulses 2+ and symmetrical DATA: All pertinent data and imaging studies were reviewed during this consultation. CLINICIAN'S INDEPENDENT IMAGE INTERPRETATION: N.B.: Images pulled in the PACS and I independently reviewed the CT image from Aug 09, 2015. Component Latest Ref Rng AND Units 11/14/2016 Protein, Total 6.3 - 8.0 g/dL 7.4 Albumin 3.9 - 4.9 g/dL 4.0 Calcium 8.5 - 10.2 mg/dL 9.5 Bilirubin, Total 0.2 - 1.3 mg/dL 0.3 Alkaline Phosphatase 32 - 117 U/L 70 AST 13 - 35 U/L 13 Glucose 74 - 99 mg/dL 90 BUN 7 - 21 mg/dL 16 Creatinine 0.58 - 0.96 mg/dL 0.89 Sodium 136 - 144 mmol/L 139 Potassium 3.7 - 5.1 mmol/L 4.4 Chloride 97 - 105 mmol/L 102 CO2 22 - 30 mmol/L 24 Anion Gap 9 - 18 mmol/L 13 ALT 7 - 38 U/L 11 eGFR- >60 eGFR-All Other Races . >60 WBC 3.70 - 11.00 k/uL 5.77 RBC 3.90 - 5.20 m/uL 4.78 Hemoglobin 11.5 - 15.5 g/dL 13.3 Hematocrit 36.0 - 46.0 % 42.3 MCV 80.0 - 100.0 fL 88.5 MCH 26.0 - 34.0 pG 27.8 MCHC 30.5 - 36.0 g/dL 31.4 RDW-CV 11.5 - 15.0 % 13.2 Platelet Count 150 - 400 k/uL 419 (H) MPV 9.0 - 12.7 fL 9.7 Absolute nRBC 0.00 k/uL 0.00 Uric Acid 2.5 - 6.6 mg/dL 5.0 TSH 0.400 - 5.500 uU/mL 0.851 Component Latest Ref Rng 09/06/2015 09/07/2015 09/11/2015 Triglyceride 30 - 149 mg/dL 92 Cholesterol 100 - 199 mg/dL 184 HDL Cholesterol >55 mg/dL 50 (L) VLDL Cholesterol 6 - 40 mg/dL 18 LDL Cholesterol 60 - 129 mg/dL 116 Fasting Time hrs fasting TC:HDL Ratio 1.00 - 5.00 3.68 LDL:HDL Ratio 0.50 - 3.55 2.32 Non HDL Cholesterol 90 - 159 mg/dL 134 Cortisol, Saliva ng/dL <50 <50 AM Cortisol Saliva Not Applicable Not Applicable PM Cortisol Saliva Not Applicable Not Applicable Midnight Cortisol Saliva Not Applicable Not Applicable Testosterone 20 - 70 ng/dL 45 Testosterone Free % 0.8 - 2.3 % 1.2 Testosterone Free 1.8 - 10.4 pg/mL 5.4 Creatinine 0.70 - 1.40 mg/dL 0.95 eGFR- >60 eGFR-All Other Races . >60 Aldosterone 3.1 - 35.4 ng/dL 8.7 Renin Activity ug/L/hr 5.4 Aldosterone/Renin Act Rat <20 2 Hemoglobin A1C 4.3 - 5.6 % 5.5 Estimated Average Glucose mg/dL 111 Metanephrine, Plasma 12 - 67 pg/mL <15 Normetanephrine, Free Plasma 18 - 101 pg/mL 24 TSH 0.400 - 5.500 uU/mL 1.110 Prolactin 2.0 - 17.4 ng/mL 8.8 DHEA-S 10.0 - 221.0 ug/dL 71.4 Hydroxyprogesterone ng/dL 49.7 Progesterone ng/mL 0.2 FSH mU/mL 6.5 LH mU/mL 7.7 Insulin 1 - 24 uU/mL 16.4 Glucose, Fasting 65 - 100 mg/dL 85 ACTH 8 - 42 pg/mL 21 Cortisol ug/dL 21.9 ASSESSMENT: Ms. Byrnes is a 36 year old woman came for follow up visit regarding Labile Hypertension, PCOS and few other medical concerns as below. RECOMMENDATIONS: (E28.2) PCOS (polycystic ovarian syndrome) (primary encounter diagnosis) Comment: pathophysiology AND treatment options discussed. Low card diet and exercise, as well as food supplements discussed in detail including drinks, snacks, mouth refreshments, and major meals, all questions related to her food and drinks answered. importance of metformin and regular exercise discussed. Plan: CONSULT TO NUTRITION THERAPY, COMP METABOLIC PANEL, CBC, HGB A1C, metFORMIN ER (GLUCOPHAGE XR) 500 mg 24 hr tablet (E66.01) Morbid obesity (HCC) Comment: pathophysiology AND treatment options discussed. Diet, exercise and food supplement discussed. Plan: CONSULT TO NUTRITION THERAPY, COMP METABOLIC PANEL, CBC, HGB A1C, metFORMIN ER (GLUCOPHAGE XR) 500 mg 24 hr tablet (E88.81) Insulin resistance Comment: pathophysiology AND treatment options discussed. metformin and exercise will help. Plan: COMP METABOLIC PANEL, CBC, HGB A1C, metFORMIN ER (GLUCOPHAGE XR) 500 mg 24 hr tablet (I10) Essential hypertension, benign Comment: clinically stable on current Rx. continue current Rx. Plan: COMP METABOLIC PANEL, CBC (E78.5) Dyslipidemia Comment: check level AND Rx as needed. Plan: COMP METABOLIC PANEL, CBC, LIPID PANEL BASIC, metFORMIN ER (GLUCOPHAGE XR) 500 mg 24 hr tablet (R73.09) Impaired glucose metabolism Comment: pathophysiology AND treatment options discussed. Metformin foe now. encouraged low carb diet and regular exercise. Plan: metFORMIN ER (GLUCOPHAGE XR) 500 mg 24 hr tablet Garret Mariee MD November 12, 2017 Referring Provider: GARRET MARIEE [[id number]] Allergies As of Date: 11/12/2017 Noted Allergy Reaction ADHESIVE TAPE (ROSINS) 05/04/2012 2 - Rash ANTIHISTAMINES - ALKYLAMINE 09/11/2015 14 - Other: See Comments Comments: Headache environmental [Other] 11/05/2006 LATEX 06/05/2011 2 - Rash LISINOPRIL 09/24/2015 3 - Cough RHINOCORT (BUDESONIDE) 11/01/2004 14 - Other: See Comments Comments: Headaches with nasal preparations and antihistamines, tolerates albuterol. Date Reviewed: 11/12/2017 Reviewed by: José Luis Hobson Ma - Fully Assessed Reason for Visit: Polycystic Ovarian Syndrome [1460] Primary Visit Diagnosis:PCOS (polycystic ovarian syndrome) [E28.2] Other Visit Diagnoses:Morbid obesity (HCC) [E66.01] Insulin resistance [E88.81] Essential hypertension, benign [I10] Dyslipidemia [E78.5] Impaired glucose metabolism [R73.09] Order(s):CONSULT TO NUTRITION THERAPY [9020] Order #: [id number]: 1 COMP METABOLIC PANEL [SQCMP] Order #: [id number] FUTURE CBC [SQCBC] Order #: [id number] FUTURE HGB A1C [FMDAT1R] Order #: [id number] FUTURE LIPID PANEL BASIC [SQLIPB] Order #: [id number] FUTURE metFORMIN ER (GLUCOPHAGE XR) 500 mg 24 hr tabletTake 1 tablet by mouth twice daily with meals.Disp: 180 tabletRfl: 3 Prescriptions as of 11/12/2017 Sig: GABAPENTIN 300 MG CAPSULE Take 300 mg by mouth three ti* METFORMIN ER 500 MG TABLET,EX* Take 1 tablet by mouth twice * X SUMATRIPTAN 100 MG TABLET TAKE 1 TABLET BY MOUTH NEE* TOPIRAMATE 50 MG TABLET Take 1 tablet by mouth once d* X DILTIAZEM SR 240 MG 24 HR CAP TAKE 1 CAPSULE BY MOUTH ONCE * HYDROCHLOROTHIAZIDE 12.5 MG T* Take 12.5 mg by mouth once da* BD ALLERGY SYRINGE 1 ML 28 GA* NORETHINDRONE ACETATE 1 MG-ET* Take 1 tablet by mouth once d* OMEPRAZOLE 40 MG CAPSULE,PERLA* TAKE ONE CAPSULE BY MOUTH MAUREEN* LOSARTAN 50 MG TABLET Take 1 tablet by mouth once d* CARBAMAZEPINE ER 100 MG TABLE* 100mg + 200mg = 300mg by mout* CARBAMAZEPINE 200 MG TABLET 100mg + 200mg = 300mg by mout* X DILTIAZEM SR 240 MG 24 HR CAP Take 1 capsule by mouth once * Problem List As Of Date 11/12/2017 Noted Resolved Migraine without aura [G43.009] INVALID FOR* More... Iron deficiency anemia, unspecified [D50.9] INVALID FOR*12/03/2016 PAIN ABDOMEN( Epigastric) [R10.13] INVALID FOR*07/21/2014 Peptic ulcer, unspecified site, unspecified as *INVALID FOR*07/21/2014 BILIARY DYSKINESIA [K82.8] INVALID FOR*07/21/2014 More... History of labor [Z87.51] INVALID FOR*07/21/2014 More... History of anesthesia complications [Z87.898] INVALID FOR* More... Antepartum mild preeclampsia [O14.00] INVALID FOR*07/21/2014 More... High-risk [O09.90] INVALID FOR*07/21/2014 More... Breech presentation [O32.1XX0] INVALID FOR*07/21/2014 More... Essential hypertension, benign [I10] INVALID FOR* Morbid obesity with BMI of 45.0-49.9, adult (HC*INVALID FOR* More... 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 Medications Discontinued During This Encounter metFORMIN ER (GLUCOPHAGE XR) 500 mg * 180 * 3 11/13/2016 11/12/2017 Route: ORAL Sig: Take 1 tablet by mouth twice daily with meals. Disc: Reason for discontinue is not on file. Disposition: Return in about 6 months (around 05/12/2018). Follow-up and Disposition History Recorded Encounter Status:Closed by GARRET MARIEE MD on 12/23/17 PROGRESS Observed: 08/04/2017 Status: COMPLETED Source: [place] 3:39 PM [facility] RE[facility]IT[facility] HNO ID: [id number] Author: Jose Rasmussen III Service: (none) Author Type: Physician Type: Progress Notes Filed: 08/04/2017 6:45 PM Note Text: SUBJECTIVE: This is a 36 year old female that is here today for Chronic Medical Conditions. 1. morbid obesity--has not been compliant with diet 2. ch R parietal/temporal tenderness with episodic, fleeting shock-like pain. No definite associations. . Started 07/22. Went to ER 07/23. Started on carbamazepine which initially caused irritability, but did lessen the pain. She stopped carbamazepine and the MUHAMMAD returned. restarted carbamazepine but still has the pain. Short course of prednisone also seemed to help the pain. Dx of R trigeminal neuralgia. 3. History of migraine headaches?she does note decreased frequency of migraines since starting Topamax. She had been on 50 mg twice per day but now has reduced the dose to 50 mg once per day with good migraine headache prevention. 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 topiramate (TOPAMAX) 50 mg tablet Take 1 tablet by mouth once daily. diltiazem CD (CARDIZEM CD, CARTIA XT) 240 mg 24 hr capsule TAKE 1 CAPSULE BY MOUTH ONCE DAILY. hydroCHLOROthiazide (HYDRODIURIL, ESIDRIX) 12.5 mg tablet Take 12.5 mg by mouth once daily. BD ALLERGY SYRINGE 1 mL 28 gauge x 1/2 syrg Norethindrone Acet-Ethinyl Est (MICROGESTIN 03/14) 1-20 mg- mcg per tablet Take 1 tablet by mouth once daily. continous Omeprazole 40 mg capsule TAKE ONE CAPSULE BY MOUTH EVERY DAY losartan (COZAAR) 50 mg tablet Take 1 tablet by mouth once daily. SUMAtriptan (IMITREX) 100 mg tablet TAKE 1 TABLET BY MOUTH NEEDED AT ONSET OF HEADACH, MAY REPEAT IN 2 HOURS NEEDED. MAX 2 TABLETS diltiazem CD (CARDIZEM CD) 240 mg 24 hr capsule Take 1 capsule by mouth once daily. metFORMIN ER (GLUCOPHAGE XR) 500 mg 24 hr tablet Take 1 tablet by mouth twice daily with meals. No current facility-administered medications on file prior to visit. FAMILY HISTORY Problem Relation Age of Onset - Hypertension Mother - Hypertension Father - MS [OTHER] Father - Neoplasm of bladder [OTHER] Father - pulmonary embolism [OTHER] Father - A-fib [OTHER] Father - Diabetes Maternal Grandmother - Hypertension Maternal Grandmother - COPD Maternal Grandmother - Thyroid Maternal Grandmother - Hypertension Maternal Grandfather - Hypertension Paternal Grandmother - Heart Paternal Grandmother - Hypertension Paternal Grandfather - Heart Paternal Grandfather - Ischemic Heart Disease Other Paternal Grandparent Social History Substance Use Topics - Smoking status: Never Smoker - Smokeless tobacco: Never Used - Alcohol use No BP 124/82 Pulse 78 Resp 20 Wt (!) 137.9 kg (304 lb) LMP 07/10/2017 (Exact Date) BMI 45.55 kg/m? . OBJECTIVE: APPEARANCE Well appearing, alert, in no acute distress, well-hydrated, well nourished., Morbidly obese, Mild tenderness right parietotemporal area. No scalp or skin lesions. No neck lymph nodes. Happy, good spirits. ASSESSMENT: right trigeminal neuralgia--not well controlled migraine MUHAMMAD--well controlled morbid obesity Some irritability caused by carbamazepine?lessening PLAN: increase carbamazepine 300mg daily careful activity, including driving healthy weight losing diet and regular exercise eat less sugar, bread, potato, pasta, rice, corn, corn syrup, saturated fats same other medications Progress report in a few days DANA Wang MD Observed: 08/04/2017 Status: COMPLETED Source: [place] 3:20 PM [facility] [place] REPOSITORY Office Visit (FAMPWS) GERDA BYRNES ([id number]) 1980 F Date Time Provider Department 08/04/17 3:20 PM JOSE RASMUSSEN III During your visit today, we recorded the following information about you: Pulse Respiration Blood pressure Weight 78/minute 20/minute 124/82 137.9 kg Jose Rasmussen III MD 08/04/2017 6:45 PM Signed SUBJECTIVE: This is a 36 year old female that is here today for Chronic Medical Conditions. 1. morbid obesity--has not been compliant with diet 2. ch R parietal/temporal tenderness with episodic, fleeting shock-like pain. No definite associations. . Started 07/22. Went to ER 07/23. Started on carbamazepine which initially caused irritability, but did lessen the pain. She stopped carbamazepine and the MUHAMMAD returned. restarted carbamazepine but still has the pain. Short course of prednisone also seemed to help the pain. Dx of R trigeminal neuralgia. 3. History of migraine headaches?she does note decreased frequency of migraines since starting Topamax. She had been on 50 mg twice per day but now has reduced the dose to 50 mg once per day with good migraine headache prevention. 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 topiramate (TOPAMAX) 50 mg tablet Take 1 tablet by mouth once daily. diltiazem CD (CARDIZEM CD, CARTIA XT) 240 mg 24 hr capsule TAKE 1 CAPSULE BY MOUTH ONCE DAILY. hydroCHLOROthiazide (HYDRODIURIL, ESIDRIX) 12.5 mg tablet Take 12.5 mg by mouth once daily. BD ALLERGY SYRINGE 1 mL 28 gauge x 1/2 syrg Norethindrone Acet-Ethinyl Est (MICROGESTIN 03/14) 1-20 mg- mcg per tablet Take 1 tablet by mouth once daily. continous Omeprazole 40 mg capsule TAKE ONE CAPSULE BY MOUTH EVERY DAY losartan (COZAAR) 50 mg tablet Take 1 tablet by mouth once daily. SUMAtriptan (IMITREX) 100 mg tablet TAKE 1 TABLET BY MOUTH NEEDED AT ONSET OF HEADACH, MAY REPEAT IN 2 HOURS NEEDED. MAX 2 TABLETS diltiazem CD (CARDIZEM CD) 240 mg 24 hr capsule Take 1 capsule by mouth once daily. metFORMIN ER (GLUCOPHAGE XR) 500 mg 24 hr tablet Take 1 tablet by mouth twice daily with meals. No current facility-administered medications on file prior to visit. FAMILY HISTORY Problem Relation Age of Onset - Hypertension Mother - Hypertension Father - MS [OTHER] Father - Neoplasm of bladder [OTHER] Father - pulmonary embolism [OTHER] Father - A-fib [OTHER] Father - Diabetes Maternal Grandmother - Hypertension Maternal Grandmother - COPD Maternal Grandmother - Thyroid Maternal Grandmother - Hypertension Maternal Grandfather - Hypertension Paternal Grandmother - Heart Paternal Grandmother - Hypertension Paternal Grandfather - Heart Paternal Grandfather - Ischemic Heart Disease Other Paternal Grandparent Social History Substance Use Topics - Smoking status: Never Smoker - Smokeless tobacco: Never Used - Alcohol use No BP 124/82 Pulse 78 Resp 20 Wt (!) 137.9 kg (304 lb) LMP 07/10/2017 (Exact Date) BMI 45.55 kg/m? . OBJECTIVE: APPEARANCE Well appearing, alert, in no acute distress, well- hydrated, well nourished., Morbidly obese, Mild tenderness right parietotemporal area. No scalp or skin lesions. No neck lymph nodes. Happy, good spirits. ASSESSMENT: right trigeminal neuralgia--not well controlled migraine MUHAMMAD--well controlled morbid obesity Some irritability caused by carbamazepine?lessening PLAN: increase carbamazepine 300mg daily careful activity, including driving healthy weight losing diet and regular exercise eat less sugar, bread, potato, pasta, rice, corn, corn syrup, saturated fats same other medications Progress report in a few days DANA Wang MD, III MD 08/04/2017 4:00 PM Signed PLAN: increase carbamazepine 300mg daily careful activity, including driving healthy weight losing diet and regular exercise eat less sugar, bread, potato, pasta, rice, corn, corn syrup, saturated fats same medications Jose Rasmussen III MD Referring Provider: JOSE RASMUSSEN III [[id number]] Allergies As of Date: 08/04/2017 Noted Allergy Reaction ADHESIVE TAPE (ROSINS) 05/04/2012 2 - Rash ANTIHISTAMINES - ALKYLAMINE 09/11/2015 14 - Other: See Comments Comments: Headache environmental [Other] 11/05/2006 LATEX 06/05/2011 2 - Rash LISINOPRIL 09/24/2015 3 - Cough RHINOCORT (BUDESONIDE) 11/01/2004 14 - Other: See Comments Comments: Headaches with nasal preparations and antihistamines, tolerates albuterol. Date Reviewed: 08/04/2017 Reviewed by: Cynthia Romero) NAYA Parrish - Fully Assessed Reason for Visit: F/U 3 Month [443] Cmt: follow up bp - weight Primary Visit Diagnosis:Morbid obesity with BMI of 45.0-49.9, adult ([facility]) [E66.01, Z68.42] Other Visit Diagnoses:Trigeminal neuralgia [G50.0] Migraine without aura and with status migrainosus, not intractable [G43.001] Order(s):carBAMazepine XR (TEGRETOL XR) 100 mg 12 hr [id number] + 200mg = 300mg by mouth twice/dayDisp: 60 tabletRfl: 11 carBAMazepine (TEGRETOL) 200 mg [id number] + 200mg = 300mg by mouth twice/dayDisp: 60 tabletRfl: 11 Prescriptions as of 08/04/2017 Sig: CARBAMAZEPINE 200 MG TABLET 100mg + 200mg = 300mg by mout* TOPIRAMATE 50 MG TABLET Take 1 tablet by mouth once d* DILTIAZEM SR 240 MG 24 HR CAP TAKE 1 CAPSULE BY MOUTH ONCE * HYDROCHLOROTHIAZIDE 12.5 MG T* Take 12.5 mg by mouth once da* BD ALLERGY SYRINGE 1 ML 28 GA* NORETHINDRONE ACETATE 1 MG-ET* Take 1 tablet by mouth once d* OMEPRAZOLE 40 MG CAPSULE,PERLA* TAKE ONE CAPSULE BY MOUTH MAUREEN* LOSARTAN 50 MG TABLET Take 1 tablet by mouth once d* SUMATRIPTAN 100 MG TABLET TAKE 1 TABLET BY MOUTH NEE* DILTIAZEM SR 240 MG 24 HR CAP Take 1 capsule by mouth once * METFORMIN ER 500 MG TABLET,EX* Take 1 tablet by mouth twice * CARBAMAZEPINE ER 100 MG TABLE* 100mg + 200mg = 300mg by mout* Problem List As Of Date 08/04/2017 Noted Resolved Migraine without aura [G43.009] INVALID FOR* More... Iron deficiency anemia, unspecified [D50.9] INVALID FOR*12/03/2016 PAIN ABDOMEN( Epigastric) [R10.13] INVALID FOR*07/21/2014 Peptic ulcer, unspecified site, unspecified as *INVALID FOR*07/21/2014 BILIARY DYSKINESIA [K82.8] INVALID FOR*07/21/2014 More... History of labor [Z87.51] INVALID FOR*07/21/2014 More... History of anesthesia complications [Z87.898] INVALID FOR* More... Antepartum mild preeclampsia [O14.00] INVALID FOR*07/21/2014 More... High-risk [O09.90] INVALID FOR*07/21/2014 More... Breech presentation [O32.1XX0] INVALID FOR*07/21/2014 More... Essential hypertension, benign [I10] INVALID FOR* Morbid obesity with BMI of 45.0-49.9, adult (HC*INVALID FOR* More... 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] Vaginismus [N94.2] Trigeminal neuralgia [G50.0] INVALID FOR* Other instructions from your clinician: PLAN: increase carbamazepine 300mg daily careful activity, including driving healthy weight losing diet and regular exercise eat less sugar, bread, potato, pasta, rice, corn, corn syrup, saturated fats same medications Jose Rasmussen III MD Prescriptions ordered this encounter Disp Refills Start End CARBAMAZEPINE ER 100 MG TABLET,EXTEN* 60 t* 11 08/04/2017 Simg + 200mg = 300mg by mouth twice/day CARBAMAZEPINE 200 MG TABLET 60 t* 11 08/04/2017 Simg + 200mg = 300mg by mouth twice/day Medications Discontinued During This Encounter carBAMazepine (TEGRETOL) 200 mg tabl* 60 t* 11 07/17/2017 08/04/2017 Route: ORAL Sig: Take 1 tablet by mouth twice daily. Disc: Reason for discontinue is not on file. Encounter Status:Closed by JOSE RASMUSSEN III, MD on 08/04/17 PROGRESS Observed: 07/17/2017 Status: COMPLETED Source: [place] 8:44 AM [facility] REPOSITORY O ID: [id number] Author: Jose Rasmussen III Service: (none) Author Type: Physician Type: Progress Notes Filed: 07/17/2017 10:09 AM Note Text: SUBJECTIVE: This is a 36 year old female that is here today for Acute onset of episodic sharp, intense pain R in focal spot parietal/temporal area. Not associated with vision change, nasal congestion. Repeated episodes since noon on 07/15. Ibuprofen 800mg and tylenol not effective for the pain. Went to ER 07/16. Reports reviewed. CTA brain neg. CBC, CMP neg. Hx of migraines, but these head pains are different. No head trauma or neuro changes. She still has migraines 3 /wk in spite of topamax 25mg daily. Using the alloted amount of imitrex each mo. 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 hydroCHLOROthiazide (HYDRODIURIL, ESIDRIX) 12.5 mg tablet Take 12.5 mg by mouth once daily. BD ALLERGY SYRINGE 1 mL 28 gauge x 1/2 syrg Norethindrone Acet-Ethinyl Est (MICROGESTIN 03/14) 1-20 mg- mcg per tablet Take 1 tablet by mouth once daily. continous Omeprazole 40 mg capsule TAKE ONE CAPSULE BY MOUTH EVERY DAY losartan (COZAAR) 50 mg tablet Take 1 tablet by mouth once daily. SUMAtriptan (IMITREX) 100 mg tablet TAKE 1 TABLET BY MOUTH NEEDED AT ONSET OF HEADACH, MAY REPEAT IN 2 HOURS NEEDED. MAX 2 TABLETS diltiazem CD (CARDIZEM CD) 240 mg 24 hr capsule Take 1 capsule by mouth once daily. metFORMIN ER (GLUCOPHAGE XR) 500 mg 24 hr tablet Take 1 tablet by mouth twice daily with meals. No current facility-administered medications on file prior to visit. FAMILY HISTORY Problem Relation Age of Onset - Hypertension Mother - Hypertension Father - MS [OTHER] Father - Neoplasm of bladder [OTHER] Father - pulmonary embolism [OTHER] Father - A-fib [OTHER] Father - Diabetes Maternal Grandmother - Hypertension Maternal Grandmother - COPD Maternal Grandmother - Thyroid Maternal Grandmother - Hypertension Maternal Grandfather - Hypertension Paternal Grandmother - Heart Paternal Grandmother - Hypertension Paternal Grandfather - Heart Paternal Grandfather - Ischemic Heart Disease Other Paternal Grandparent Social History Substance Use Topics - Smoking status: Never Smoker - Smokeless tobacco: Never Used - Alcohol use No BP 123/73 Pulse 67 Resp 18 Wt (!) 137.9 kg (304 lb) LMP 07/10/2017 (Exact Date) BMI 45.55 kg/m? . OBJECTIVE: APPEARANCE Well appearing, alert, in no acute distress, well-hydrated, well nourished. EYES PERRLA, conjunctiva and sclera normal. NEURO Awake, alert and oriented x 3, Normal gait and No involuntary motions. ASSESSMENT: R trigeminal neuralgia hx of migraine MUHAMMAD--remains frequent PLAN: increase topiramate 50 mg daily start carbamazepine 200mg every evening x 3 days; then 200mg twice/day tramadol 50mg twice/day as needed for severe pain progress report in 2 wks reviewed up-to-date. Discussion with patient regarding the disease and treatment. Jose Rasmussen III MD CNOV Observed: 07/17/2017 Status: COMPLETED Source: [place] 8:20 AM [facility] REPOSITORY Office Visit (FAMPWS) GERDA BYRNES ([id number]) 1980 F Date Time Provider Department 07/17/17 8:20 AM JO[facility]ASMUSSEN III [facility] During your visit today, we recorded the following information about you: Pulse Respiration Blood pressure Weight 67/minute 18/minute 123/73 137.9 kg Last Period 07/10/17 Jose Rasmussen III MD 07/17/2017 10:09 AM Signed SUBJECTIVE: This is a 36 year old female that is here today for Acute onset of episodic sharp, intense pain R in focal spot parietal/temporal area. Not associated with vision change, nasal congestion. Repeated episodes since noon on 07/15. Ibuprofen 800mg and tylenol not effective for the pain. Went to ER 07/16. Reports reviewed. CTA brain neg. CBC, CMP neg. Hx of migraines, but these head pains are different. No head trauma or neuro changes. She still has migraines 3 /wk in spite of topamax 25mg daily. Using the alloted amount of imitrex each mo. 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 hydroCHLOROthiazide (HYDRODIURIL, ESIDRIX) 12.5 mg tablet Take 12.5 mg by mouth once daily. BD ALLERGY SYRINGE 1 mL 28 gauge x 1/2 syrg Norethindrone Acet-Ethinyl Est (MICROGESTIN 03/14) 1-20 mg- mcg per tablet Take 1 tablet by mouth once daily. continous Omeprazole 40 mg capsule TAKE ONE CAPSULE BY MOUTH EVERY DAY losartan (COZAAR) 50 mg tablet Take 1 tablet by mouth once daily. SUMAtriptan (IMITREX) 100 mg tablet TAKE 1 TABLET BY MOUTH NEEDED AT ONSET OF HEADACH, MAY REPEAT IN 2 HOURS NEEDED. MAX 2 TABLETS diltiazem CD (CARDIZEM CD) 240 mg 24 hr capsule Take 1 capsule by mouth once daily. metFORMIN ER (GLUCOPHAGE XR) 500 mg 24 hr tablet Take 1 tablet by mouth twice daily with meals. No current facility-administered medications on file prior to visit. FAMILY HISTORY Problem Relation Age of Onset - Hypertension Mother - Hypertension Father - MS [OTHER] Father - Neoplasm of bladder [OTHER] Father - pulmonary embolism [OTHER] Father - A-fib [OTHER] Father - Diabetes Maternal Grandmother - Hypertension Maternal Grandmother - COPD Maternal Grandmother - Thyroid Maternal Grandmother - Hypertension Maternal Grandfather - Hypertension Paternal Grandmother - Heart Paternal Grandmother - Hypertension Paternal Grandfather - Heart Paternal Grandfather - Ischemic Heart Disease Other Paternal Grandparent Social History Substance Use Topics - Smoking status: Never Smoker - Smokeless tobacco: Never Used - Alcohol use No BP 123/73 Pulse 67 Resp 18 Wt (!) 137.9 kg (304 lb) LMP 07/10/2017 (Exact Date) BMI 45.55 kg/m? . OBJECTIVE: APPEARANCE Well appearing, alert, in no acute distress, well- hydrated, well nourished. EYES PERRLA, conjunctiva and sclera normal. NEURO Awake, alert and oriented x 3, Normal gait and No involuntary motions. ASSESSMENT: R trigeminal neuralgia hx of migraine MUHAMMAD--remains frequent PLAN: increase topiramate 50 mg daily start carbamazepine 200mg every evening x 3 days; then 200mg twice/day tramadol 50mg twice/day as needed for severe pain progress report in 2 wks reviewed up-to-date. Discussion with patient regarding the disease and treatment. DANA Wang MD, III MD 07/17/2017 9:04 AM Signed PLAN: increase topiramate 50 mg daily start carbamazepine 200mg every evening x 3 days; then 200mg twice/day tramadol 50mg twice/day as needed for severe pain progress report in 2 wks Jose Rasmussen III MD Referring Provider: SELF [200] Allergies As of Date: 07/17/2017 Noted Allergy Reaction ADHESIVE TAPE (ROSINS) 05/04/2012 2 - Rash ANTIHISTAMINES - ALKYLAMINE 09/11/2015 14 - Other: See Comments Comments: Headache environmental [Other] 11/05/2006 LATEX 06/05/2011 2 - Rash LISINOPRIL 09/24/2015 3 - Cough RHINOCORT (BUDESONIDE) 11/01/2004 14 - Other: See Comments Comments: Headaches with nasal preparations and antihistamines, tolerates albuterol. Date Reviewed: 07/17/2017 Reviewed by: Stan ([facility]) NAYA Montes De Oca - Fully Assessed Reason for Visit: Shooting pain in right [employer] [Other] Primary Visit Diagnosis:Migraine without aura and with status migrainosus, not intractable [G43.001] Other Visit Diagnosis:Trigeminal neuralgia [G50.0] Order(s):carBAMazepine (TEGRETOL) 200 mg tabletTake 1 tablet by mouth twice daily.Disp: 60 tabletRfl: 11 topiramate (TOPAMAX) 50 mg tabletTake 1 tablet by mouth once daily.Disp: 90 tabletRfl: 3 Prescriptions as of 07/17/2017 Sig: DILTIAZEM SR 240 MG 24 HR CAP TAKE 1 CAPSULE BY MOUTH ONCE * HYDROCHLOROTHIAZIDE 12.5 MG T* Take 12.5 mg by mouth once da* BD ALLERGY SYRINGE 1 ML 28 GA* NORETHINDRONE ACETATE 1 MG-ET* Take 1 tablet by mouth once d* OMEPRAZOLE 40 MG CAPSULE,PERLA* TAKE ONE CAPSULE BY MOUTH MAUREEN* LOSARTAN 50 MG TABLET Take 1 tablet by mouth once d* SUMATRIPTAN 100 MG TABLET TAKE 1 TABLET BY MOUTH NEE* DILTIAZEM SR 240 MG 24 HR CAP Take 1 capsule by mouth once * METFORMIN ER 500 MG TABLET,EX* Take 1 tablet by mouth twice * CARBAMAZEPINE 200 MG TABLET Take 1 tablet by mouth twice * TOPIRAMATE 50 MG TABLET Take 1 tablet by mouth once d* Problem List As Of Date 07/17/2017 Noted Resolved Migraine without aura [G43.009] INVALID FOR* More... Iron deficiency anemia, unspecified [D50.9] INVALID FOR*12/03/2016 PAIN ABDOMEN( Epigastric) [R10.13] INVALID FOR*07/21/2014 Peptic ulcer, unspecified site, unspecified as *INVALID FOR*07/21/2014 BILIARY DYSKINESIA [K82.8] INVALID FOR*07/21/2014 More... History of labor [Z87.51] INVALID FOR*07/21/2014 More... History of anesthesia complications [Z87.898] INVALID FOR* More... Antepartum mild preeclampsia [O14.00] INVALID FOR*07/21/2014 More... High-risk [O09.90] INVALID FOR*07/21/2014 More... Breech presentation [O32.1XX0] INVALID FOR*07/21/2014 More... Essential hypertension, benign [I10] INVALID FOR* Morbid obesity with BMI of 45.0-49.9, adult (HC*INVALID FOR* More... 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 TOPIRAMATE 50 MG TABLET 90 t* 3 07/17/2017 Route: ORAL Sig: Take 1 tablet by mouth once daily. Medications Discontinued During This Encounter topiramate (TOPAMAX) 25 mg tablet 90 t* 3 11/11/2016 07/17/2017 Route: ORAL Sig: Take 1 tablet by mouth once daily. Disc: Dosage adjustment Encounter Status:Closed by JOSE RASMUSSEN III, MD on 07/17/17 EMERGENCY DEPARTMENT Observed: 07/17/2017 Status: F Source: [place] SUMMARY 12:39 AM REPOSITORY [facility] Medical Records Department [address] [place] [address] Emergency Department Summary 07/16/17 2229 MR#: [id number] Acct: [id number] Name: GERDA BYRNES Rep #: [id number] : 1980 36 From: Andie Contreras MD PCP: Jose Rasmussen III, MD Status: DEP ER - ER Visit Summary Date of Service: 07/16/17 Chief Complaint: Headache History of Present Illness: The patient is a 36 F presenting with right-sided headache. She states this has gradually worsened since yesterday. She has intermittent pain in the right side of her forehead. She states that when the pain is severe it causes her eye to close. She denies visual changes or photophobia. Denies trauma. Denies fever or neck pain. Denies numbness or weakness. She has a history of migraines and states this does not feel like her typical migraine. She tried her typical migraine medication without relief. Physical Examination: Vitals are stable. Patient is afebrile. Alert no acute distress. HEENT exam right temporal area and right forehead tenderness, no signs of infection Neck is supple. No meningismus Lungs are clear and equal bilaterally. Heart is regular rate and rhythm. Abdomen is soft nontender nondistended. Extremities are unremarkable. Skin is warm and dry. No focal neurologic deficit. Remainder of exam is unremarkable. Emergency Department Course and Treatment: Patient is given Compazine, Benadryl. CTA head shows normal false pass of [place] without a demonstrated aneurysm or hemodynamically significant stenosis. CBC, chemistries, and sed rate are within normal limits. On reevaluation, patient is resting comfortably. She has an appointment with her primary care physician in the morning. She is advised to keep this appointment. She is advised return ED for any worsening complaints. Disposition: Discharge home Impression: Headache This note was generated with [employer] dictation software. It may contain incorrect words, spelling, and punctuation that were not noted in review of the chart prior to signing ED Disposition - Plan for ED Patient: Disposition: Home or Assisted Living Chief Complaint: Headache Instructions: ED Cephalgia Unspecified Referrals: Jose Rasmussen III, MD [Primary Care Provider] - What to do if you have Problems For any increased pain, shortness of breath, bleeding, nausea or vomiting, chest pain, or any unexpected problems, contact your Primary Care Provider. Call [facility] ([phone]) or report to the closest Emergency Room. Call 911 if necessary. 07/17/17 0039 <Electronically signed by Andie Contreras MD> Date Andie Contreras MD Cosigner Signature (If Indicated): Date CC: Jose Rasmussen III, MD DISCHARGE INSTRUCTION Observed: 07/17/2017 Status: F Source: [place] 12:18 AM [facility] Medical Records Department [address] [place] [address] Discharge Instruction 07/17/17 0017 MR#: [id number] Acct: [id number] Name: GERDA BYRNES Rep #: [id number] : 1980 36 From: Andie Contreras MD PCP: Jose Rasmussen III, MD Status: REG ER ED Disposition - Plan for ED Patient: Chief Complaint: Headache Instructions: ED Cephalgia Unspecified Referrals: Jose Rasmussen III, MD [Primary Care Provider] - What to do if you have Problems For any increased pain, shortness of breath, bleeding, nausea or vomiting, chest pain, or any unexpected problems, contact your Primary Care Provider. Call [facility] ([phone]) or report to the closest Emergency Room. Call 911 if necessary. 07/17/17 0018 <Electronically signed by Andie Contreras MD> Date Andie Contreras MD Cosigner Signature (If Indicated): Date CC: Jose RICKS Observed: 07/17/2017 Status: COMPLETED Source: [place] 12:00 AM [facility] APOORVAGERDA ([id number]) 1980 F Date Time Provider Department 07/17/17 JOSE [facility]ASMUSSEN [facility] During your visit today, we recorded the following information about you: Cathy Crow PATSY 07/17/2017 11:32 AM Signed Patient calling, thought that there was another medication that was going to be called in for her pain. She go the Topamax and tegretol as maintenance medication but thought there was something for the acute pain. Please advise. Jose Rasmussen III MD 07/17/2017 1:21 PM Signed my error--tramadol has been ordered DANA Wang MD, CMA, NAYA 07/17/2017 2:35 PM Signed Rx has been called in. Patient has been notified. ALEXA Sanz 07/18/2017 8:46 AM Signed Patient called stating she took Tramadol last night and had a headache worst than the one she had prior to taking medication. Patient asking if there is something else she can take. Please call patient and advise. Jose Rasmussen III MD 07/21/2017 6:02 PM Signed .oarsr OARRS website checked and validated. All prescriptions have been APPROPRIATELY filled. No suspicious activity was identified.- 07/21/2017 by DANA Wang MD, III MD 07/21/2017 6:03 PM Signed I'm not sure why the headache got worst as I've never had a patient get worse headache when taking tramadol. However, at least it seems that the tramadol was not helping with the pain, so we will be forced to try a narcotic. We'll use hydrocodone 5 mg up to 4 times per day as needed for head pain. Jose Rasmussen III, , FAAFP Jose Rasmussen III MD 07/21/2017 6:03 PM Signed Addended by: JOSE RASMUSSEN III, MD on: 07/21/2017 06:03 PM Modules accepted: Orders Stan Montes De Oca CMA, MA 07/21/2017 6:23 PM Signed Rx is ready AND has been taken to medical records. Detailed message left for patient. Stan Montes De Oca CMA Allergies As of Date: 07/17/2017 Noted Allergy Reaction ADHESIVE TAPE (ROSINS) 05/04/2012 2 - Rash ANTIHISTAMINES - ALKYLAMINE 09/11/2015 14 - Other: See Comments Comments: Headache environmental [Other] 11/05/2006 LATEX 06/05/2011 2 - Rash LISINOPRIL 09/24/2015 3 - Cough RHINOCORT (BUDESONIDE) 11/01/2004 14 - Other: See Comments Comments: Headaches with nasal preparations and antihistamines, tolerates albuterol. Date Reviewed: 07/17/2017 Reviewed by: Stan Gonsales) NAYA Montes De Oca - Fully Assessed Reason for Visit: Medication Question [1478] Primary Visit Diagnosis:Trigeminal neuralgia [G50.0] Order(s):HYDROcodone-acetaminophen (NORCO) 5-325 mg per tabletTake 1 tablet by mouth every 6 hours as needed for Pain for up to 5 days.Disp: 20 tabletRfl: 0 Prescriptions as of 07/17/2017 Sig: HYDROCODONE 5 MG-ACETAMINOPHE* Take 1 tablet by mouth every * CARBAMAZEPINE 200 MG TABLET Take 1 tablet by mouth twice * TOPIRAMATE 50 MG TABLET Take 1 tablet by mouth once d* DILTIAZEM SR 240 MG 24 HR CAP TAKE 1 CAPSULE BY MOUTH ONCE * HYDROCHLOROTHIAZIDE 12.5 MG T* Take 12.5 mg by mouth once da* BD ALLERGY SYRINGE 1 ML 28 GA* NORETHINDRONE ACETATE 1 MG-ET* Take 1 tablet by mouth once d* OMEPRAZOLE 40 MG CAPSULE,PERLA* TAKE ONE CAPSULE BY MOUTH MAUREEN* LOSARTAN 50 MG TABLET Take 1 tablet by mouth once d* SUMATRIPTAN 100 MG TABLET TAKE 1 TABLET BY MOUTH NEE* DILTIAZEM SR 240 MG 24 HR CAP Take 1 capsule by mouth once * METFORMIN ER 500 MG TABLET,EX* Take 1 tablet by mouth twice * Problem List As Of Date 07/17/2017 Noted Resolved Migraine without aura [G43.009] INVALID FOR* More... Iron deficiency anemia, unspecified [D50.9] INVALID FOR*12/03/2016 PAIN ABDOMEN( Epigastric) [R10.13] INVALID FOR*07/21/2014 Peptic ulcer, unspecified site, unspecified as *INVALID FOR*07/21/2014 BILIARY DYSKINESIA [K82.8] INVALID FOR*07/21/2014 More... History of labor [Z87.51] INVALID FOR*07/21/2014 More... History of anesthesia complications [Z87.898] INVALID FOR* More... Antepartum mild preeclampsia [O14.00] INVALID FOR*07/21/2014 More... High-risk [O09.90] INVALID FOR*07/21/2014 More... Breech presentation [O32.1XX0] INVALID FOR*07/21/2014 More... Essential hypertension, benign [I10] INVALID FOR* Morbid obesity with BMI of 45.0-49.9, adult (HC*INVALID FOR* More... 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 Disc: Lack of Efficacy HYDROCODONE 5 MG-ACETAMINOPHEN 325 M* 20 t* 0 07/21/2017 07/26/2017 Class: Print RX Route: ORAL Sig: Take 1 tablet by mouth every 6 hours as needed for Pain for up to 5 days. Medications Discontinued During This Encounter traMADol (ULTRAM) 50 mg tablet 30 t* 0 07/17/2017 07/21/2017 Class: Call Rx Route: ORAL Sig: Take 1 tablet by mouth every 6 hours as needed for Pain for up to 15 days. Disc: Lack of Efficacy Encounter Status:Closed by STAN MONTES DE OCA CMA on 07/17/17 CBC W/DIFF, AUTOMATED Collected: 07/16/2017 Status: F Source: [place] 10:50 PM REPOSITORY TYPE CODE TESTS RESULT OUT OF RANGE REFERENCE UNITS LAB L100.1000 4.4-11.0 K/mm3 Normal WBC 8.5 LAB L100.1200 4.2-5.4 M/mm3 Normal RBC 4.35 LAB L100.1300 12.0-15.0 g/dl Low HGB 11.9 LAB L100.1400 37-47 % Normal HCT 37.1 LAB L100.1500 81-99 fL Normal MCV 85.3 LAB L100.1600 27.0-32.0 pg Normal MCH 27.4 LAB L100.1700 32-36 g/gl Normal MCHC 32.1 LAB L100.1810 11.6-14.6 % Normal RDW CV 13.1 LAB L100.1820 35.1-43.9 fl Normal RDW SD 40.7 LAB L100.1900 150-450 K/mm3 Normal PLT 368 LAB L100.2000 6.2-12.0 fl Normal MPV 9.4 LAB L100.2100 47-70 % Normal NEUT% 64.2 LAB L100.2200 19-41 % Normal LY% 27.8 LAB L100.2300 0-10 % Normal MONO% 6.1 LAB L100.2400 0-5 % Normal EO% 1.8 LAB L100.2500 0-1 % Normal BASO% 0.1 LAB L100.2550 0.0-0.9 % Normal IM GRAN % 0.000 Result Comment: IG% - Immature Granulocytes (promyelocytes, myelocytes and metamyelocytes) > 1% indicates that a LEFT SHIFT is Present. LAB L100.2620 2.0-7.7 X10 3/uL Normal Absolute Neut 5.5 LAB L100.2720 0.83-4.51 X10 3/ul Normal Absolute Lymph 2.37 Performed By: #### L100.0100, L101.9900 #### [facility] [address] [place], [address] ERYTHROCYTE SED RATE Collected: 07/16/2017 Status: F Source: [place] 10:50 PM REPOSITORY TYPE CODE TESTS RESULT OUT OF RANGE REFERENCE UNITS LAB L102.0000 0-20 mm/hr Normal SED RATE 9 Performed By: #### L100.0100, L101.9900 #### [facility] [address] [place], [place], [address] BASIC METABOLIC Collected: 07/16/2017 Status: F Source: [place] PROFILE (BMP) 10:50 PM REPOSITORY TYPE CODE TESTS RESULT OUT OF RANGE REFERENCE UNITS LAB L501.0100 74-106 mg/dL Normal GLU 94 Result Comment: Please note revised GLUCOSE reference range effective 2017. LAB L501.1000 7-18 mg/dL Normal BUN 12 LAB L501.1100 0.55-1.02 mg/dL Normal CREAT,SERUM 0.95 Result Comment: The validity of the calculated GFR AND GFRAA in patients over 70 years has not been determined. Clinical correlation is essential. LAB L501.1110 >60 mL/min Normal EST GFR 71 Result Comment: Non- GFR Calc LAB L501.1115 >60 mL/min Normal EST GFR - AA 86 Result Comment: GFR Calc LAB L501.1255 ml/min Normal Estimated CRCL 83.38 LAB L501.1300 10-20 RATIO Normal BUN/CRE 12.6 LAB L501.2200 8.5-10 mg/dL Normal .1 CA 9.1 LAB L501.5300 136-14 mmol/L Normal 5 NA 139 LAB L501.5600 3.5-5. mmol/L Normal 1 K 3.6 LAB L501.5900 98-107 mmol/L Normal CL 107 LAB L501.6100 21.0-3 mmol/L Normal 2.0 CO2 27.0 LAB L501.6200 5-15 Normal GAP 5 Performed By: #### L500.2500 #### [facility] [address] [place], [address] CTA HEAD W/WO Observed: 07/16/2017 Status: F Source: [place] CONTRAST 10:27 PM REPOSITORY [facility] Imaging Services [address] [place] [address] CTA Head W/WO Contrast MR#: [id number] Acct: [id number] Name: GERDA BYRNES Rep #: [id number] : 1980 F 36 From: Olga Lidia Del Valle MD PCP: Jose Rasmussen III, MD Status: REG ER Study: CTA Head W/WO Contrast Date of Exam: 07/16/17 Exam# [id number] Ordering Dr: Andie Contreras MD STUDY: CTA OF THE BRAIN REASON FOR EXAM: Female, 36 years old. INT SHARP PAIN RIGHT SIDE HEAD NEAR EYE, UNABLE TO OPEN EYE WHEN PAIN OCCURS RADIATION DOSAGE (If Supplied By Facility): CTDIvol = ( 25.29 ) mGy, DLP = ( 1543.58 ) mGycm TECHNIQUE: CT angiography was performed with a multi-detector CT scanner. Data acquisition was obtained from the skull base through the vertex following intravenous administration of ml of . MIP images were reconstructed from the axial data set. Post-processing of the angiographic images was performed, with multiplanar reformation and 3D reconstruction. Individualized dose optimization techniques were used for this CT. COMPARISON: None. FINDINGS: Normal bilateral petrous carotid arteries. Normal right cavernous carotid artery with a normal supraclinoid bifurcation. Normal left cavernous carotid artery with a normal supraclinoid bifurcation. Normal right A1 segments of the anterior cerebral artery. Normal left A1 segments of the anterior cerebral artery. Normal intact anterior communicating artery (ACOM). Normal bilateral A2 segments of the anterior cerebral arteries. Normal right M1 and M2 segments of the middle cerebral arteries, with a normal M1 bifurcation. Normal left M1 and M2 segments of the middle cerebral arteries, with a normal M1 bifurcation. There is non-visualization of the right posterior communicating artery (PCOM). There is non-visualization of the left posterior communicating artery (PCOM). Normal bilateral vertebral arteries. Normal basilar artery with a normal basilar bifurcation. The visualized bilateral superior cerebellar (SCA) arteries are normal. Normal bilateral P1, P2 and visualized P3 segments of the posterior cerebral arteries. There is no demonstrated aneurysm of the false pass of Saravia. There is no demonstrated abnormality of the visualized brain. CT/CTA Head W/WO Contrast IMPRESSION: Normal false pass of [place] without a demonstrated aneurysm or hemodynamically significant stenosis. Electronically Signed: Olga Lidia Del Valle MD at 23:50 EDT Tel , Service support , CC: Andie Contreras MD; Jose Rasmussen III, MD Support Services Tech: Signed CNPTOUTREACH Observed: 06/23/2017 Status: COMPLETED Source: [place] 12:00 AM [facility] REPOSITORY Patient Outreach ([facility]) APOORVAGERDA ([id number]) 1980 F Date Time Provider Department 06/23/17 JOSE RASMUSSEN IIIPST During your visit today, we recorded the following information about you: Allergies As of Date: 06/23/2017 Noted Allergy Reaction ADHESIVE TAPE (ROSINS) 05/04/2012 2 - Rash ANTIHISTAMINES - ALKYLAMINE 09/11/2015 14 - Other: See Comments Comments: Headache environmental [Other] 11/05/2006 LATEX 06/05/2011 2 - Rash LISINOPRIL 09/24/2015 3 - Cough RHINOCORT (BUDESONIDE) 11/01/2004 14 - Other: See Comments Comments: Headaches with nasal preparations and antihistamines, tolerates albuterol. Date Reviewed: 04/09/2017 Reviewed by: Stan ([facility]) NAYA Montes De Oca - Fully Assessed Visit Diagnosis:Medication management [Z79.899] Order(s):LIPID PANEL BASIC [SQLIPB] Order #: [id number] FUTURE Prescriptions as of 06/23/2017 Sig: DILTIAZEM SR 240 MG 24 HR CAP TAKE 1 CAPSULE BY MOUTH ONCE * HYDROCHLOROTHIAZIDE 12.5 MG T* Take 12.5 mg by mouth once da* BD ALLERGY SYRINGE 1 ML 28 GA* NORETHINDRONE ACETATE 1 MG-ET* Take 1 tablet by mouth once d* OMEPRAZOLE 40 MG CAPSULE,PERLA* TAKE ONE CAPSULE BY MOUTH MAUREEN* LOSARTAN 50 MG TABLET Take 1 tablet by mouth once d* X SUMATRIPTAN 100 MG TABLET TAKE 1 TABLET BY MOUTH NEE* DILTIAZEM SR 240 MG 24 HR CAP Take 1 capsule by mouth once * X METFORMIN ER 500 MG TABLET,EX* Take 1 tablet by mouth twice * X TOPIRAMATE 25 MG TABLET Take 1 tablet by mouth once d* Problem List As Of Date 06/23/2017 Noted Resolved Migraine without aura [G43.009] INVALID FOR* More... Iron deficiency anemia, unspecified [D50.9] INVALID FOR*12/03/2016 PAIN ABDOMEN( Epigastric) [R10.13] INVALID FOR*07/21/2014 Peptic ulcer, unspecified site, unspecified as *INVALID FOR*07/21/2014 BILIARY DYSKINESIA [K82.8] INVALID FOR*07/21/2014 More... History of labor [Z87.51] INVALID FOR*07/21/2014 More... History of anesthesia complications [Z87.898] INVALID FOR* More... Antepartum mild preeclampsia [O14.00] INVALID FOR*07/21/2014 More... High-risk [O09.90] INVALID FOR*07/21/2014 More... Breech presentation [O32.1XX0] INVALID FOR*07/21/2014 More... Essential hypertension, benign [I10] INVALID FOR* Morbid obesity with BMI of 45.0-49.9, adult (HC*INVALID FOR* More... 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] Vaginismus [N94.2] Encounter Status:Closed by EPIC, PRODUSER on 12/04/17 URGENT CARE VISIT Observed: 05/15/2017 Status: F Source: [place] REPORT 3:07 PM REPOSITORY [facility] [address] [place] [address] 6 [place] [address] OFFICE VISIT Date of Service: 05/15/17 MR#: [id number] Acct: [id number] Name: GERDA BYRNES Rep #: [id number] : 1980 Provider: Teddy DANIELSON Age/Sex: 36/F Location[place] [email or web address] Status: Signed Intake Vital Signs05/15/17 Height 5 ft 8.5 in Intake Visit Reasons: Sinus infection Is patient in pain?: No Allergies No Known Allergies Allergy (Verified 05/15/17 14:57) Medications Diltiazem HCl [Diltiazem 24Hr ER] 180 mg PO DAILY 07/23/15 [History Confirmed 05/15/17] Lisinopril [Zestril] 10 mg PO DAILY #30 tab 07/23/15 [Rx Confirmed 05/15/17] Omeprazole [Prilosec] 40 mg PO DAILY 07/23/15 [History Confirmed 05/15/17] Sumatriptan Succinate [Imitrex] 100 mg PO .X1 PRN 07/23/15 [History Confirmed 05/15/17] amoxicillin 875 mg-potassium clavulanate 125 mg tablet 1 tab PO Q12H 10 Days #20 tab 05/15/17 [Rx Confirmed 05/15/17] PFSH Social History Smoking Status: Never smoker HPI HPI Details: GERDA BYRNES, is a 36 F who presents to the office today for sinus pressure and pain for the past 4 days which has been increasing. Patient states that the pressure and pain have been causing sinus headaches and pain particularly to her upper jaw and sinuses. She states that the headache is made slightly better with ibuprofen. She denies fever, chills, sweats. No shortness of breath or difficulty breathing. No other associated symptoms or alleviating/aggravating factors. ROS Const Constitutional: Positive for headache(s); no fever(s), chills, night sweats or abnormal sleep pattern ENT ENT: Positive for nasal congestion, sinus pressure, sinus pain, nasal discharge and headache(s); no ear pain Resp Respiratory: No cough or shortness of breath Cardio Cardiology: No shortness of breath, irregular heart rhythm or fast heart rate Neuro Neurology: Positive for headache(s); no confusion Psych Psychiatric: No abnormal sleep pattern, No confusion Exam Const General: cooperative, healthy appearing HENMT Head: normal to inspection Ears: hearing grossly normal bilaterally, TM's normal bilaterally, EAC's normal Nose: nasal discharge purulent Face and sinus: sinus tenderness frontal and maxillary Mouth: oral mucosae normal Throat: abnormal tonsil bilaterally, postnasal drainage Resp Effort AND Inspection: normal respiratory effort Auscultation: Bilateral: Clear to Auscultation Cardio Palpation: normal PMI Rate: regular rate Rhythm: regular rhythm Neuro General: alert, CN's II-XI intact bilaterally Psych Appearance: grossly normal Mental Status: mental status grossly normal Assessment AND Plan 1. Acute non-recurrent maxillary sinusitis J01.00 Status Acute Plan Encouraged to get plenty of rest, drink lots of clear liquids, and use Tylenol or Ibuprofen (unless contraindicated) for fever and comfort. Patient also educated on other symptomatic management techniques. To be seen in 7-10 days if no improvement; sooner if worsening of symptoms. Patient advised of potential red flags when appropriate report to the ED. Patient verbalized understanding of all the above. This note was generated with Fabricly dictation software. It may contain incorrect words, spelling, and punctuation that were not noted in checking the note before signing. Plan Detail Other Medications New: Coding Level of Care Code Off vis,est,level 3 Diagnoses Acute non-recurrent maxillary sinusitis J01.00 Sinusitis location: maxillary Chronicity: acute Recurrence: non-recurrent 05/15/17 1507 <Electronically signed by Teddy DANIELSON> Date Teddy Mitch PA Cosigner Signature: Date (if applicable) CC: PROGRESS Observed: 04/09/2017 Status: COMPLETED Source: [place] 10:00 AM [facility] REPOSITORY HNO ID: [id number] Author: Jose Rasmussen III Service: (none) Author Type: Physician Type: Progress Notes Filed: 04/09/2017 12:06 PM Note Text: SUBJECTIVE: This is a 36 year old female that is here today for follow up 1. morbid obesity. Lost 35 lb over past yr. Better diet but little exercise because of caring for ill mother in law. 2. hypertension--home bp 117/- 3. PCOS--still with irreg menses 4. poor sleep with awakening and still awakens feeling tired. Previous sleep studies show that she does not get into REM sleep. No documented sleep apnea; no snoring. Anxious mind at night., PAST MEDICAL HISTORY Diagnosis Date - Abdominal pain, RLQ - Anemia 2006 - Antepartum mild preeclampsia 12/31/2011 - Aortic valve insufficiency 2012 diagnosed - Benign neoplasm of left ovary - Chicken pox - Complication of anesthesia TACHYCARDIA WITH ANESTHESIA FOR CHOLECYSTECTOMY - Essential hypertension, benign 07/05/2014 - GERD (gastroesophageal reflux disease) - Headache(784.0) Stress - Hypertension - Menstrual migraine - Migraine headache 07/05/2014 - Mitral valve insufficiency 2012 diagnosed - Morbid obesity with BMI of 45.0-49.9, adult ([facility]) 07/05/2014 - 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 BD ALLERGY SYRINGE 1 mL 28 gauge x 1/2 syrg Norethindrone Acet-Ethinyl Est (MICROGESTIN 03/14) 1-20 mg- mcg per tablet Take 1 tablet by mouth once daily. continous Omeprazole 40 mg capsule TAKE ONE CAPSULE BY MOUTH EVERY DAY losartan (COZAAR) 50 mg tablet Take 1 tablet by mouth once daily. SUMAtriptan (IMITREX) 100 mg tablet TAKE 1 TABLET BY MOUTH NEEDED AT ONSET OF HEADACH, MAY REPEAT IN 2 HOURS NEEDED. MAX 2 TABLETS diltiazem CD (CARDIZEM CD) 240 mg 24 hr capsule Take 1 capsule by mouth once daily. metFORMIN ER (GLUCOPHAGE XR) 500 mg 24 hr tablet Take 1 tablet by mouth twice daily with meals. topiramate (TOPAMAX) 25 mg tablet Take 1 tablet by mouth once daily. No current facility-administered medications on file prior to visit. FAMILY HISTORY Problem Relation Age of Onset - Hypertension Mother - Hypertension Father - MS [OTHER] Father - Neoplasm of bladder [OTHER] Father - pulmonary embolism [OTHER] Father - A-fib [OTHER] Father - Diabetes Maternal Grandmother - Hypertension Maternal Grandmother - COPD Maternal Grandmother - Thyroid Maternal Grandmother - Hypertension Maternal Grandfather - Hypertension Paternal Grandmother - Heart Paternal Grandmother - Hypertension Paternal Grandfather - Heart Paternal Grandfather - Ischemic Heart Disease Other Paternal Grandparent Social History Substance Use Topics - Smoking status: Never Smoker - Smokeless tobacco: Never Used - Alcohol use No BP 144/96 Pulse 73 Resp 16 Wt 132.9 kg (293 lb) BMI 43.9 kg/m2 . BP 135/ 82 OBJECTIVE: APPEARANCE Well appearing, alert, in no acute distress, well-hydrated, well nourished., Morbidly obese ASSESSMENT: morbid obesity--improved hypertension--labile PCOS--still with irreg menses ch insomnia PLAN: healthy weight losing diet and regular exercise eat less sugar, bread, potato, pasta, rice, corn, corn syrup, saturated fats same medications return to office 3 mos to check weight and BP melatonin 2mg-5mg 1-2 hours prior to bedtime to help with sleep DANA Wang MD, III MD ALLERGIES ALLERGIES DATE TYPE / CODE NAME / CODE REACTION SEVERITY SOURCE Miscellaneous TAPE Rash Unknown [place] 9 Allergy/789072472( Community SNOMED CT) Hospital Repository Drug No Known Unknown [place] 8 Allergy/350713665( Allergies/[id number] [facility] SNOMED CT) 8(RXNORM) Hospital Repository DRUG LISINOPRIL COUGH [place] 6 INGREDI/204697530( Clinic Main SNOMED CT) [place] Repository Drug ANTIHISTAMINES - OTHER: SEE C [place] 6 Class/406013045(SN ALKYLAMINE Clinic Main OMED CT) [place] Repository Chemical/144470533 ADHESIVE TAPE RASH [place] 3 (SNOMED CT) (ROSINS) [facility] Main [place] Repository DRUG LATEX RASH [place] 2 INGREDI/091749589( [facility] Main SNOMED CT) [place] Repository Miscellaneous OTHER [place] 7 Allergy/828776710( [facility] Main SNOMED CT) [place] Repository DRUG BUDESONIDE OTHER: SEE C [place] 5 INGREDI/660697038( [facility] Main SNOMED CT) [place] Repository ENCOUNTERS ENCOUNTERS ADMIT/DISCHARGE ACCOUNT ADMITTING ENCOUNTER LOCATION SOURCE NUMBER CLASS 03/16/2018 [id number] [facility] ing:OPUS Repository 03/08/2018 [id number] Ambulatory [facility] ing:PAVLAB Repository 03/08/2018/03/08/19 [id number] Ambulatory BMSBuilding:B [place] 19 MS.[facility] Repository 02/28/2018/02/28/19 [id number] Emergency [address] ing:ED Repository 02/28/2018/02/28/19 [id number] Ambulatory BMSBuilding:B [place] 19 MS.[facility] Repository 12/04/2017/12/05/19 [id number] Ambulatory BMSBuilding:B [place] 18 MS.[facility] Repository 11/24/2017 [id number] Ambulatory [facility] ing:US Repository 11/20/2017/11/21/19 [id number] Ambulatory BMSBuilding:B [place] 18 MS.[facility] Repository 11/19/2017/11/20/19 [id number] Ambulatory BMSBuilding:B [place] 18 MS.[facility] Repository 11/17/2017/11/18/19 [id number] Ambulatory [address] Repository 11/12/2017/11/13/19 [id number] Ambulatory [address] Repository 08/04/2017/08/06/19 [id number] Ambulatory [address] Repository 07/17/2017/07/22/19 [id number] Ambulatory [address] Repository 07/16/2017/07/18/19 [id number] Emergency [place] 18 [facility] Hospital ing:ED Repository 05/15/2017/05/16/19 [id number] Ambulatory BMSBuilding:B [place] 18 MS.[facility] Repository 04/09/2017/04/09/19 [id number] Ambulatory [address] Repository PAYERS PAYERS ENCOUNTER GUARANTOR PAYER SUBSCRIBER SOURCE 03/16/2018 GERDA Delvalle Primary ZACKERY MAXIRENE Franco [id number] [place] [facility] [place] Number: [facility] [id number] [place]ository [place] [address]Vxi: Date:0821-29-67[address]UT[address] WOLF () [address]OO: 03/16/2018 Secondary NOT GIVENUNK [place] Insurance:SELF PAY [facility] Number: Effective Repository Date:2018-03-08 03/08/2018 GERDA Delvalle Primary ZACKERY MAXIRENE Franco [id number] [place] Insurance:A[facility]NAPol[facility] [place] Number: [facility] [id number] [place]ository [place] [address]Yny: Date:1884-47-71WV [address] DANUTA YEBOAH () [address]XQ: 03/08/2018 Secondary NOT GIVENUNK [place] Insurance:SELF PAY [facility] Number: Effective Repository Date:2018-03-08 03/08/2018 GERDA Delvalle Primary ZACKERY AGNIESZKA Franco [id number] [place] [facility] [place] Number: [facility] [id number] [place]ository [place] [address]Fsu: Date:9995-49-07HT [address] DANUTA YEBOAH () [address]YA: 03/08/2018 Secondary NOT GIVENUNK [place] Insurance:SELF PAY [facility] Number: Effective Repository Date:2018-03-08 02/28/2018 GERDA Delvalle Primary ZACKERY AARON [place] [id number] [place] Insurance:AETNAPolicy Community [place] Number: [facility], [id number] [place]ository [place] [address]Bma: Date:6609-86-71[id number] [place] [address] () [address]TV: 02/28/2018 Secondary NOT GIVENUNK [place] Insurance:SELF PAY [facility] Number: Effective Repository Date:2018-02-28 02/28/2018 GERDA Delvalle Primary ZACKERY AARON [place] [id number] [place] Insurance:AETNAPolicy [facility] [place] Number: [facility], [id number] [place]ository [place] [address]Wjr: Date:2358-63-80ND [address] [place] [address] () [address]OV: 02/28/2018 Secondary NOT GIVENUNK [place] Insurance:SELF PAY [facility] Number: Effective Repository Date:2018-02-28 12/04/2017 GERDA Delvalle Primary GERDA Delvalle [place] [id number] [place] Insurance:CIGNAPolicy MAXYMIVDOB: Community [place] Number: [id number], [id number] Repository [place] [address]Inr: Date:7189-60-23EY [address]YDECHCYJBHB, [place] () [address]FV: 12/04/2017 Secondary NOT GIVENUNK [place] Insurance:SELF PAY [facility] Number: Effective Repository Date:2017-12-04 11/24/2017 GERDA Delvalle Primary GERDA Delvalle [place] [id number] [place] Insurance:CIGNAPolicy MAXYMIVDOB: Community [place] Number: [id number] [facility], [id number] Repository [place] [address]Lvl: Date:8174-23-87[address] () [address]ID: 11/24/2017 Secondary NOT GIVENUNK [place] Insurance:SELF PAY [facility] Number: Effective Repository Date:2017-11-20 11/20/2017 GERDA Delvalle Primary GERDA Delvalle [place] [id number] [place] Insurance:CIGNAPolicy MAXYMIVDOB: Community [place] Number: [id number] [facility], [id number] [place]ository [place] [address]Jyt: Date:3457-19-28XP [address]VDXVWTMELSI, [place] () [address]SC: 11/20/2017 Secondary NOT GIVENUNK [place] Insurance:SELF PAY [facility] Number: Effective Repository Date:2017-11-20 11/19/2017 GERDA Delvalle Primary GERDA Delvalle [place] [id number] [place] Insurance:CIGNAPolicy MAXYMIVDOB: Community [place] Number: [id number] [facility], [id number] [place]ository [place] [address]Lbd: Date:8079-77-55[address]MWHNMMFNDTB, [place] () [address]EH: 11/19/2017 Secondary NOT GIVENUNK [place] Insurance:SELF PAY [facility] Number: Effective Repository Date:2017-11-19 07/16/2017 GERDA Delvalle Primary GERDA Delvalle [place] [id number] [place] Insurance:CIGNAPolicy MAXYMIVDOB: Community [place] Number: [id number] [facility], [id number] [place]ository [place] [address]Jtu: Date:0176-80-33RX [address]PNBLJZJARZQ, [place] () [address]OI: 07/16/2017 Secondary NOT GIVENUNK [place] Insurance:SELF PAY [facility] Number: Effective Repository Date:2017-07-16 05/15/2017 GERDA Delvalle Primary GERDA M [place] [id number] [place] Insurance:[facility] OLMSTEADYMIVDOB: [facility] [place] Number: [id number] [facility] [id number] Repository , [place] [address]Ajf: Date:4981-39-19JI [address]OLLPCPTFYBZ, [place] () [address]EU: 05/15/2017 Secondary NOT GIVENUNK [place] Insurance:SELF PAY [facility] Number: Effective Repository Date:2017-05-15
== END ==
PROVIDERS: Family Provider Family Medicine; PCP Family Medicine; Referring Provider Nurse Practitioner Women's Health; Visit Provider Nurse Practitioner Women's Health
DX: N83.201 Unspecified ovarian cyst, right side (principal)
CPT/HCPCS: 76830; 76856; 93976

== ENCOUNTER → 2018-03-26 13:17 | Outpatient (CLI) | payer OTHER, SELFPAY ==
[2018-03-26 08:55] VITALS: BMI 43.0
[2018-03-30 08:48] LABS: HPV APTIMA, High Risk Negative (Negative)
== END ==
LOC: LABSPEC 13:19
PROVIDERS: Family Provider Family Medicine; PCP Family Medicine; Referring Provider Obstetrics & Gynecology; Visit Provider Obstetrics & Gynecology
DX: Z12.4 Encounter for screening for malignant neoplasm of cervix (principal)
CPT/HCPCS: 87624; 88175; G0145

== ENCOUNTER → 2018-04-02 09:07 | Outpatient (CLI) | payer OTHER, SELFPAY ==
[2018-03-26 08:55] VITALS: BMI 43.0
--- NOTE | 2018-04-02 09:14 | US_ITS ---
STUDY: ULTRASOUND BREAST - LEFT REASON FOR EXAM: Female, 37 years old. Palpable lump left breast. TECHNIQUE: Axial and longitudinal images of the LEFT breast were performed with a high resolution ultrasound transducer. COMPARISON: Comparison is made with prior mammogram done earlier today. FINDINGS: LEFT Breast: The upper lateral aspect of the left breast was examined by ultrasound. There is homogeneous fibroglandular tissue. No solid or cystic mass lesion is seen. US/Breast Limited Unilateral IMPRESSION: Unremarkable sonographic examination of the upper outer quadrant of the left breast. ASSESSMENT CATEGORY: BIRADS Category 1: Negative. A letter regarding these results will be sent to the patient by the facility within 30 days. Electronically Signed: Suhail Mclaughlin MD at 11:13 EST , Service support ,
--- NOTE | 2018-04-02 09:14 | BI_ITS ---
MAMMOGRAPHY - BILATERAL DIAGNOSTIC REASON FOR EXAM: Female, 37 years old. Lump at the 1:00 to 2:00 position of the left breast. PERTINENT HISTORY: Non-contributory. TECHNIQUE: Digital bilateral breast zofia (3D mammographic acquisition) in the CC and MLO projections. 2-D mediolateral oblique (MLO) and craniocaudad (CC) views of both breasts were obtained. CAD: Full Field Digital Mammography with Computer Added Detection was performed. COMPARISON: None. Baseline examination. FINDINGS: Breast Composition: There are scattered areas of fibroglandular density. There are no dominant masses or suspicious calcifications. No other significant abnormalities are identified. BI/DIAG MAMM W/CAD, BILAT IMPRESSION: Negative diagnostic mammogram. With the patient's history of a palpable abnormality in the left breast, correlation with ultrasound is recommended. ASSESSMENT CATEGORY: BIRADS Category 0: Incomplete. Need additional imaging evaluation. A letter regarding these results will be sent to the patient by the facility within 30 days. Approximately 10% of breast cancers are not detected by mammography. A normal mammogram should not delay biopsy of a clinically suspicious abnormality. Electronically Signed: Suhail Mclaughlin MD at 10:26 EST , Service support ,
== END ==
LOC: OPUS 09:08
PROVIDERS: Family Provider Family Medicine; PCP Family Medicine; Referring Provider Obstetrics & Gynecology; Visit Provider Obstetrics & Gynecology
DX: N63.20 Unspecified lump in the left breast, unspecified quadrant (principal)
CPT/HCPCS: 76642; 77062; 77066; G0279

== ENCOUNTER 2020-03-03 09:43 | Emergency (ER) | payer BC, SELFPAY ==
[2019-09-14 09:11] VITALS: BMI 43.0
[2020-03-03 09:44] VITALS: BP 158/113; PULSE 67; RESP 16; TEMP 36.6; O2SAT 100; BMI 45.6
--- NOTE | 2020-03-03 10:00 | EKG12_ITS ---
Test Reason : SOB Blood Pressure : / mmHG Vent. Rate : 066 BPM Atrial Rate : 066 BPM P-R Int : 140 ms QRS Dur : 088 ms QT Int : 434 ms P-R-T Axes : 060 004 037 degrees QTc Int : 454 ms Sinus rhythm with Premature supraventricular complexes Otherwise normal ECG Confirmed by GLORY HDZ, MONI ([id number]), material expeditor LAN KELLY ([id number]) on 03/05/2020 10:23:56 AM Referred By: EZEQUIEL Confirmed By:MONI HOLDER MD
--- NOTE | 2020-03-03 10:01 | ED.DCSUM_ITS ---
- ER Visit Summary Date of Service: 03/03/20 Chief Complaint: Shortness of breath History of Present Illness: The patient is a 39 F who presents with shortness of breath that began yesterday. Patient states she had a Covid vaccination 4 days ago. Patient states she has some dull pain in her lower chest and upper abdomen. Patient states this is worse with lying flat. Patient denies any cough. Patient denies any sore throat. Patient denies any rhinorrhea. Patient denies any fevers or chills. Patient does admit to nausea but denies any vomiting. Patient denies any recent travel or recent surgery. Patient denies any history of PE. Patient has a history of diabetes and hypertension. Physical Examination: Vital signs are stable except for blood pressure of 158/113. Patient is afebrile. Patient is in no acute distress. Heart was regular rate and rhythm. Lungs are clear and equal bilaterally. There is adequate respiratory effort. Abdomen is soft. Bowel sounds are normal. There are some mild epigastric tenderness. There is no rebound or guarding noted. Extremities are intact. There is no calf tenderness or edema. Cranial nerves II through XII are intact. There are no focal motor or sensory deficits. Test Results: EKG was obtained. On my interpretation, there is normal sinus rhythm with a rate of 66. There is an occasional PAC noted. There are no acute ST or T wave changes. CBC and comprehensive metabolic profile were obtained were within normal limits. Lipase was normal. Troponin was normal. Emergency Department Course and Treatment: Patient was given a DuoNeb aerosol here. Patient felt better on reevaluation. Patient was given a prescription for albuterol inhaler. Patient was instructed to follow-up with her primary care physician in 5 to 7 days. Patient understood and was agreeable with the plan. All questions were answered. Disposition: Discharge home Impression: 1. Dyspnea This note was generated with Clicker dictation software. It may contain incorrect words, spelling, and punctuation that were not noted in review of the chart prior to signing ED Disposition - Plan for ED Patient: Disposition: Home or Assisted Living Diagnosis: Dyspnea Instructions: ED Dyspnea Prescriptions: Albuterol Inhaler [Ventolin Hfa] 1 - 2 puff INHALATION Q4H PRN PRN #1 inhaler PRN Reason: Wheezing Prescription Printed Referrals: Jose Rasmussen III, MD [Primary Care Provider] - 5-7 Days
[2020-03-03] MEDS: Ipratropium/Albuterol Sulfate 3 ML AMPUL.NEB INHALATION (10:18)
[2020-03-03 10:20] VITALS: PULSE 82; RESP 18
[2020-03-03 10:23] VITALS: O2SAT 100
[2020-03-03 10:47] LABS: Absolute Lymphocyte Count 1.55 X10^3/uL (0.83-4.51); Absolute Neutrophil Count 4.3 X10^3/uL (2.0-7.7); Basophil# 0.01 X10^3/uL; Basophil% 0.1 % (0-1); Eosinophil# 0.39 X10^3/uL; Eosinophils% 5.8 % (0-5); Hematocrit 43.1 % (37-47); Hemoglobin 13.8 g/dL (12.0-15.0); Lymphocyte # 1.55 X10^3/ul (4.0); Lymphocyte % 22.9 % (19-41); Mean Corpuscular Hgb 28.5 pg (27.0-32.0); Mean Platelet Vol. 9.6 fl (6.2-12.0); Monocyte% 7.4 % (0-10); NRBC Flagged by Analyzer 0 % (0-5); Neutrophil # 4.32 X10^3/uL (2.7-7.7); Neutrophil % 63.7 % (47-70); Platelet Count 341 K/mm3 (150-450); RBC Distribution Width CV 12.7 % (11.6-14.6); RBC Distribution Width SD 42.3 fl (35.1-43.9); Red Blood Count 4.84 M/mm3 (4.2-5.4); White Blood Count 6.8 K/mm3 (4.4-11.0)
[2020-03-03 11:05] LABS: AST(SGOT) 16 U/L (15-37); Alanine Aminotransfer ALT/SGPT 36 U/L (13-56); Albumin, Serum 3.7 g/dL (3.2-5.0); Alkaline Phosphatase 89 U/L (45-117); Anion Gap 5 (5-15); BUN 14 mg/dL (7-18); BUN/Creat Ratio 15.9 RATIO (10-20); Calcium,Total 8.7 mg/dL (8.5-10.1); Chloride 110 mmol/L (98-107); Creatinine, Serum 0.88 mg/dL (0.55-1.02); EST Glomerular Filtration Rate 76 mL/min (>60); Est Glom Filt Rate - Afr Amer 92 mL/min (>60); Estimated Creatinine Clearance 87.44 ml/min; Globulin 3.8 g/dL (2.2-4.2); Glucose 81 mg/dL (74-106); Lipase 97 U/L (73-393); Potassium 3.7 mmol/L (3.5-5.1); Protein, Total 7.5 g/dL (6.4-8.2); Sodium Level 140 mmol/L (136-145)
[2020-03-03 11:49] VITALS: BP 148/88; PULSE 68; RESP 18; O2SAT 100
== END 2020-03-03 11:50 | disposition home or self-care (01) ==
PROVIDERS: Emergency Provider Emergency Medicine; PCP Family Medicine
DX: R06.02 Shortness of breath (principal); I10 Essential (primary) hypertension; E11.9 Type 2 diabetes mellitus without complications; E66.9 Obesity, unspecified; G43.909 Migraine, unspecified, not intractable, without status migrainosus; Z68.42 Body mass index [BMI] 45.0-49.9, adult; Z79.84 Long term (current) use of oral hypoglycemic drugs; Z79.899 Other long term (current) drug therapy
CPT/HCPCS: 80053; 83690; 84484; 85025; 93005; 94640; 99284

== ENCOUNTER → 2020-09-19 09:28 | Outpatient (CLI) | payer BC, SELFPAY ==
[2020-09-19 09:01] VITALS: BMI 45.6
[2020-09-19 10:24] LABS: Prolactin 17.5 ng/mL
[2020-09-24 12:07] LABS: DHEA Sulfate 44.9 ug/dL (57.3-279.2)
[2020-09-24 13:07] LABS: Testosterone Free 0.5 pg/mL (0.0-4.2)
== END ==
PROVIDERS: PCP Family Medicine; Referring Provider Nurse Practitioner Women's Health; Visit Provider Nurse Practitioner Women's Health
DX: E28.2 Polycystic ovarian syndrome (principal)
CPT/HCPCS: 36415; 82627; 84146; 84402; 82626

== ENCOUNTER → 2020-09-20 15:46 | Outpatient (CLI) | payer BC, SELFPAY ==
[2020-09-19 09:01] VITALS: BMI 45.6
--- NOTE | 2020-09-20 15:48 | BI_ITS ---
MAMMOGRAPHY - BILATERAL SCREENING 3-D TOMOSYNTHESIS REASON FOR EXAM: Female, 39 years old. Routine screening PERTINENT HISTORY: No significant family history. TECHNIQUE: 2-D mammograms and 3-D Tomosynthesis of the breast (s) were performed. CAD was performed. COMPARISON: 2019 FINDINGS: The breast composition is composed of scattered fibroglandular density. Scattered benign calcifications are seen. No dense spiculated masses or suspicious microcalcifications are identified. No architectural distortion is identified. There is no skin thickening or retraction. There has been no significant change since the prior study. BI/SCRN MAMM (CAD)W/LYDIA BILAT IMPRESSION: No mammographic signs of malignancy. Routine yearly mammograms recommended. ASSESSMENT CATEGORY: BIRADS Category 1: Negative. A letter regarding these results will be sent to the patient by the facility within 30 days. FOLLOW UP RECOMMENDATION: Yearly follow up mammogram recommended. (A) Approximately 10% of breast cancers are not detected by mammography. A normal mammogram should not delay biopsy of a clinically suspicious abnormality. Electronically Signed: Luis Rodriguez MD at 8:56 EDT , Service support ,
== END ==
PROVIDERS: PCP Family Medicine; Referring Provider Nurse Practitioner Women's Health; Visit Provider Nurse Practitioner Women's Health
DX: Z12.31 Encounter for screening mammogram for malignant neoplasm of breast (principal)
CPT/HCPCS: 77063; 77067

== ENCOUNTER 2020-10-31 14:22 | Outpatient (CLI) | payer BC, SELFPAY ==
[2020-10-31 14:34] VITALS: BP 133/77; PULSE 66; RESP 16; TEMP 36.7; O2SAT 100; BMI 45.6
[2020-10-31] MEDS: 0.9% Saline Lock 10 ML Syringe IV (14:41)
[2020-10-31 15:35] VITALS: BP 124/78; PULSE 86; RESP 16; TEMP 36.7; O2SAT 100
[2020-10-31 16:35] VITALS: BP 140/79; PULSE 66; RESP 16; TEMP 36.7; O2SAT 100
== END 2020-10-31 16:50 | disposition home or self-care (01) ==
LOC: MS2OUT 14:23 → MS2 14:23
PROVIDERS: PCP Family Medicine; Referring Provider Nurse Practitioner Acute Care; Visit Provider Nurse Practitioner Acute Care
DX: U07.1 COVID-19 (principal)
CPT/HCPCS: J7050; M0243; A4216; Q0244

== ENCOUNTER → 2020-11-10 08:28 | Outpatient (CLI) | payer BC, SELFPAY ==
[2020-11-10 09:24] LABS: Absolute Lymphocyte Count 1.63 X10^3/uL (0.83-4.51); Absolute Neutrophil Count 3.3 X10^3/uL (2.0-7.7); Basophil# 0.02 X10^3/uL; Basophil% 0.3 % (0-1); Eosinophil# 0.31 X10^3/uL; Eosinophils% 5.4 % (0-5); Hematocrit 38.5 % (37-47); Hemoglobin 12.6 g/dL (12.0-15.0); Lymphocyte # 1.63 X10^3/ul (0.83-4.51); Lymphocyte % 28.2 % (19-41); Mean Corp Hgb Conc 32.7 g/dL (32-36); Mean Corpuscular Hgb 29.1 pg (27.0-32.0); Mean Corpuscular Volume 88.9 fL (81-99); Mean Platelet Vol. 9.8 fl (6.2-12.0); Monocyte# 0.49 X10^3/uL; Monocyte% 8.5 % (0-10); NRBC Flagged by Analyzer 0 % (0-5); Neutrophil # 3.31 X10^3/uL (2.7-7.7); Neutrophil % 57.4 % (47-70); Platelet Count 329 K/mm3 (150-450); RBC Distribution Width CV 13.3 % (11.6-14.6); RBC Distribution Width SD 43.5 fl (35.1-43.9); Red Blood Count 4.33 M/mm3 (4.2-5.4); White Blood Count 5.8 K/mm3 (4.4-11.0)
[2020-11-10 09:46] LABS: Hemoglobin A1c 5.2 % (3.8-5.6)
[2020-11-10 10:05] LABS: ALB/GLOB Ratio 0.8 RATIO (0.9-2.4); AST(SGOT) 18 U/L (15-37); Alanine Aminotransfer ALT/SGPT 41 U/L (13-56); Albumin, Serum 3.3 g/dL (3.2-5.0); Alkaline Phosphatase 69 U/L (45-117); Anion Gap 5 (5-15); BUN 16 mg/dL (7-18); BUN/Creat Ratio 19.1 RATIO (10-20); Chloride 111 mmol/L (98-107); Cholesterol 148 mg/dL (200); Creatinine, Serum 0.84 mg/dL (0.55-1.02); EST Glomerular Filtration Rate 80 mL/min (>60); Est Glom Filt Rate - Afr Amer 97 mL/min (>60); Globulin 3.9 g/dL (2.2-4.2); Glucose 98 mg/dL (74-106); High Density Lipoprotein 51 mg/dL; Potassium 3.7 mmol/L (3.5-5.1); Protein, Total 7.2 g/dL (6.4-8.2); Sodium Level 142 mmol/L (136-145); T4 Free Direct 1.03 ng/dL (0.76-1.46); Thyroid Stim Hormone (TSH) 0.92 uIU/mL (0.358-3.74); Triglycerides 56 mg/dL; Very Low Density Lipoprotein 11 mg/dL (5-40)
== END ==
PROVIDERS: PCP Registered Nurse; Visit Provider Registered Nurse
DX: Z11.59 Encounter for screening for other viral diseases (principal); I10 Essential (primary) hypertension; E28.2 Polycystic ovarian syndrome; E78.5 Hyperlipidemia, unspecified; E66.01 Morbid (severe) obesity due to excess calories
CPT/HCPCS: 36415; 80053; 80061; 83036; 84439; 84443; 85025; 86803; 86804

== ENCOUNTER 2020-11-14 13:05 | Outpatient (RCR) | payer BC, SELFPAY ==
[2020-09-19 09:01] VITALS: BMI 45.6
== END 2020-11-22 23:59 ==
LOC: NS 13:05
PROVIDERS: PCP Registered Nurse; Visit Provider Nurse Practitioner Women's Health
DX: Z71.3 Dietary counseling and surveillance (principal); E66.9 Obesity, unspecified
CPT/HCPCS: 97802

== ENCOUNTER → 2020-11-21 08:49 | Outpatient (CLI) | payer BC, SELFPAY ==
--- NOTE | 2020-11-21 08:52 | RDU_ITS ---
Reason For Study: HTN Right Renal Artery Left Renal Artery Right renal artery ostium Left renal artery ostium 128.5/27.5 144.1/40.4 RSV/EDV. PSV/EDV. Right renal artery proximal Left renal artery proximal PSV/EDV 154.5/50.8 PSV/EDV. 123.4/37.8 . Right renal artery mid 177.8/79.3 Left renal artery mid 220.9/59.2 PSV/EDV. PSV/EDV . Right renal artery distal Left renal artery distal 186.8/36.8 159.6/68.9 PSV/EDV. PSV/EDV. Right Renal Parenchyma Left Renal Parenchyma Upper Pole Medula 34.3/10.6 Left upper pole medulla 31/10 PSV/EDV. PSV/EDV . Right upper pole medulla EDR 0.31 . Left upper pole medulla EDR 0.32 . Right upper pole medulla R.I. Left upper pole medulla R.I. 0.68 . 0.69 . UP Cortex 22.7/8.1 PSV/EDV. Upper Adelfo Cortx 20/7.7 PSV/EDV. Left upper pole cortex EDR 0.36 . Right upper pole cortex EDR 0.39 . Left upper pole cortex R.I. 0.64 . Right upper pole cortex R.I. 0.61 . Left lower Pole medulla 40.1/14.5 Right lower Pole medulla 36.2/14.2 PSV/EDV . PSV/EDV . Left lower pole medulla EDR 0.36 . Right lower pole medulla EDR 0.39 . Left lower pole medulla R.I. 0.64 . Right lower pole medulla R.I. Lower Pole Cortx 21.8/8.1 PSV/EDV. 0.61 . Left lower pole cortex EDR 0.37 . Lower Pole Cortex 24.3/9.7 PSV/EDV. Left lower pole cortex R.I. 0.63 . Right lower pole cortex EDR 0.40 . Left Renal Hilar Right lower pole cortex R.I. 0.60 . LT Hilar avg 62.5/19.6 PSV/EDV . Right Renal Hilar Left hilar acceleration time 40 Right Hilar avg 99.4/35.8 PSV/EDV. m/sec. Right hilar acceleration time 40 Left Renal Dimensions m/sec. Left kidney size 10.60 cm . Right Renal Dimensions Left cortical dimension 1.51 cm . Right kidney size 10.30 cm . Right cortical dimension 1.70 cm . Aorta Proximal abdominal aorta 1.50 x 1.50 cm . Proximal abdominal aorta peak systolic velocity is 103.4 cm/sec . Distal abdominal aorta 1.63 x 1.64 cm . Distal abdominal aorta peak systolic velocity is 103.4 cm/sec . VL/Renal Artery Duplex Ultrasound Interpretation Summary Maximal aortic diameter distally at 1.63 x 1.65 cm. Minimally elevated aortic v elocity flow at 103.4 cm/s with normal being less than 100 cm/s. This invalidates renal artery to aor tic ratios that assist with determination of degree of renal artery stenosis Maximal velocity within the right mid renal artery at 177.8 cm second peak stat ic flow consistent with a less than 60% stenosis. Right renal length 10.3 cm normal Maximal velocity left mid renal artery 220 cm second peak systolic flow which w ould be greater than 60% stenosis if renal artery to aortic ratio was available although it may simp ly reflect the generalized increased arterial velocities. If the ratio is calculated with 220 cm/s peak systolic flow over an aortic velocity of 100 cm/s then this would not meet criteria for clinically significant stenosis Left renal length 10.6 cm normal Ordering Physician: Rosanna Rai Referring Physician: Rosanna Rai Performed By: Kavitha Rojas RVT
== END ==
PROVIDERS: PCP Registered Nurse; Referring Provider Registered Nurse; Visit Provider Registered Nurse
DX: I10 Essential (primary) hypertension (principal)
CPT/HCPCS: 93975

== ENCOUNTER 2020-12-19 13:37 | Outpatient (RCR) | payer BC, SELFPAY ==
[2020-11-23 00:08] VITALS: BMI 45.6
== END 2020-12-23 23:59 ==
LOC: NS 13:37
PROVIDERS: PCP Registered Nurse; Visit Provider Nurse Practitioner Women's Health
DX: Z71.3 Dietary counseling and surveillance (principal); E66.9 Obesity, unspecified
CPT/HCPCS: 97803

== ENCOUNTER 2021-01-10 13:42 | Outpatient (RCR) | payer BC, SELFPAY ==
[2020-12-24 00:08] VITALS: BMI 45.6
== END 2021-01-22 23:59 ==
LOC: NS 13:42
PROVIDERS: PCP Registered Nurse; Referring Provider Nurse Practitioner Women's Health; Visit Provider Nurse Practitioner Women's Health
DX: Z71.3 Dietary counseling and surveillance (principal); E66.9 Obesity, unspecified
CPT/HCPCS: 97803

== ENCOUNTER 2021-02-06 10:12 | Outpatient (RCR) | payer BC, SELFPAY ==
[2021-01-23 00:14] VITALS: BMI 45.6
== END 2021-02-22 23:59 ==
LOC: NS 10:12
PROVIDERS: PCP Registered Nurse; Referring Provider Nurse Practitioner Women's Health; Visit Provider Nurse Practitioner Women's Health
DX: Z71.3 Dietary counseling and surveillance (principal); E66.9 Obesity, unspecified
CPT/HCPCS: 97803

== ENCOUNTER → 2021-10-09 | Outpatient (CLI) | payer BC, SELFPAY ==
[2020-09-19 09:01] VITALS: BMI 45.6
--- NOTE | 2021-10-09 13:53 | BI_ITS ---
MAMMOGRAPHY - BILATERAL SCREENING 3-D TOMOSYNTHESIS REASON FOR EXAM: Female, 40 years old. screening PERTINENT HISTORY: No significant family history. TECHNIQUE: 2-D mammograms and 3-D Tomosynthesis of the breast (s) were performed. CAD was performed. COMPARISON: 09/20/2020 FINDINGS: The breast composition is composed of scattered fibroglandular density. Scattered benign calcifications are seen. No dense spiculated masses or suspicious microcalcifications are identified. No architectural distortion is identified. There is no skin thickening or retraction. There has been no significant change since the prior study. BI/SCRN MAMM (CAD)W/LYDIA BILAT IMPRESSION: No mammographic signs of malignancy. Routine yearly mammograms recommended. ASSESSMENT CATEGORY: BIRADS Category 1: Negative. A letter regarding these results will be sent to the patient by the facility within 30 days. FOLLOW UP RECOMMENDATION: Yearly follow up mammogram recommended. (A) Approximately 10% of breast cancers are not detected by mammography. A normal mammogram should not delay biopsy of a clinically suspicious abnormality. Electronically Signed: Eduardo Burdick MD at 14:42 EDT ,
== END | disposition home or self-care (01) ==
LOC: OPBI 13:44
PROVIDERS: PCP Registered Nurse; Visit Provider Nurse Practitioner Women's Health
DX: Z12.31 Encounter for screening mammogram for malignant neoplasm of breast (principal)
CPT/HCPCS: 77063; 77067

== ENCOUNTER 2022-03-28 06:16 | Day surgery (SDC) | payer BC, SELFPAY ==
[2022-03-28] VITALS (7 sets, daily range): BP systolic 102–110; BP diastolic 62–67; PULSE 56–72; RESP 14–16; TEMP 36.7–37.4; O2SAT 95–97; BMI 40.6
--- NOTE | 2022-03-28 06:26 | PCM.HP.BLA ---
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 Is patient in pain?: No Allergies adhesive tape [tape] Adverse Reaction (Verified 03/17/22 12:22) Rash Medications losartan 50 mg tablet 50 mg PO DAILY 07/16/17 [History Confirmed 03/17/22] topiramate 50 mg tablet (Topamax) 50 mg PO DAILY 11/19/17 [History Confirmed 03/17/22] levonorgestrel 20 mcg/24 hours (8 yrs) 52 mg intrauterine device (Mirena) 1 insert intrauterine ONCE 03/08/18 [History Confirmed 03/17/22] verapamil 80 mg tablet 80 mg PO DAILY 09/14/19 [History Confirmed 03/17/22] albuterol sulfate 90 mcg/actuation aerosol inhaler 1 - 2 puff inhalation Q4H PRN PRN Wheezing ##1 03/03/20 [Rx Confirmed 03/17/22] semaglutide 0.25 mg or 0.5 mg (2 mg/1.5 mL) subcutaneous pen injector (Ozempic) 0.5 mg subcut QWEEK 10/09/21 [History Confirmed 03/17/22] chlorthalidone 25 mg tablet 25 mg PO 03/17/22 [History Confirmed 03/17/22] gabapentin 300 mg capsule 300 mg PO DAILY 03/17/22 [History Confirmed 03/17/22] omeprazole 40 mg capsule,delayed release 40 mg PO 03/17/22 [History Confirmed 03/17/22] ubrogepant 100 mg tablet (Ubrelvy) 100 mg PO .prn 03/17/22 [History Confirmed 03/17/22] PFSH Medical History? Fibrocystic changes of left breast History of migraine Hypertension Other specified abnormal uterine and vaginal bleeding PCOS (polycystic ovarian syndrome) PCOS (polycystic ovarian syndrome) Surgical History? delivery delivered Encounter for cholecystectomy History of tonsillectomy Family History? Father Hypertension Cancer ?? ? bladder Heart disease Multiple sclerosis High cholesterolMother HypertensionGrandfather Cancer ?? ? prostate ?? ? Heart disease HypertensionGrandmother Diabetes Hypertension Social History? Smoking Status:? Never smoker alcohol intake:? never substance use type:? does not use caffeine:? Yes what type of physical activity do you participate in:? none seatbelt use:? always do you feel safe at home:? Yes additional social history:? [employer] Patient is a dental hygenist HPI HPI HPI: 41-year-old female who is being referred by ANN MARIE Mcfarlane for surgical consultation regarding gastroesophageal reflux disease and symptoms with breakthrough symptoms.? The patient has a family history with a mother who has Guzman's esophagus.? The patient is complaining of a sharp pain that occurs in the chest lasting 20 seconds to a minute.? She is on daily omeprazole.? Other medical problems include obesity and fibrocystic breast disease and polycystic ovarian syndrome and hypertension and migraines. She has been trying to lose weight.? Over the past year she has had an intentional 20 pound weight loss.? Her reflux symptoms have been present ever since her gallbladder surgery years ago.? A year and a half ago she had COVID-19.? This is caused her to lose her taste.? Therefore she had some more spice to her foods.? She thinks this is a source of increased reflux however if she does not have more spice she cannot taste her food. No DVT.? No residual pulmonary issues. She is a dental hygienist. ROS General General: Yes weight change; No appetite, fatigue, colon cancer, breast cancer or weakness HEENT HEENT: No difficulty swallowing, eye injury, eye surgery, swollen glands or hoarseness Endo Endocrine: No thyroid disease, diabetes mellitus, thyroid cancer, Hair loss, heat intolerance or cold intolerance Skin Skin: No rash or changing moles Breast Breast: No left breast lump, right breast lump, nipple discharge, breast pain, abnormal mammogram, abnormal US or breast enlargement Musc Musculoskeletal: No back problems, arthritis, rheumatoid arthritis, gout or joint pain Cardio Cardiovascular: No murmur, pacemaker, heart disease, atrial fibrillation, high blood pressure, heart attack, heart stent, palpitations, shortness of breat with exertion or chest pain Psych Psychiatric: No depression, anxiety or hearing voices Resp Respiratory: No shortness of breath, No sleep apnea, No cough, No COPD, No asthma, No emphysema and No wheezing Gastro Gastrointestinal: No abdominal pain, No nausea or vomiting, No diarrhea, No constipation, No blood in stool, Yes acid reflux, No hemorrhoids, No ulcers, Yes gallbladder problem and No black,tarry stools Isidro Hematologic: No blood thinners, No blood disorders, No bleeding, No anemia and No blood clots Neuro Neurologic: No system reviewed and no additional complaints, except as documented, No as per HPI, No abnormal gait, No abnormal hearing, No abnormal movements, No abnormal speech, No behavioral changes, No burning sensations, No confusion, No convulsions, No disequilibrium, No dizziness, No localized weakness, No frequent falls, No headache(s), No lack of coordination, No loss of vision, No memory loss, No numbness, No other visual disturbances, No radicular pain, No restless legs, No sensory deficit, No syncope, No tingling, No tremor(s), No weakness and No other Exam Const General: cooperative, comfortable and no acute distress Nutritional Appearance: obese [facility] Head: normal to inspection Eyes General: appearance normal, both eyes and all related structures Neck Neck: normal visual inspection Resp Effort & Inspection: normal respiratory effort Auscultation: clear to auscultation bilaterally Cardio Rate: regular rate Rhythm: regular rhythm GI Palpation: soft and no hepatosplenomegaly Auscultation: normal bowel sounds Musc Cervical Spine: normal cervical lordosis Neuro General: patient alert, patient awake and patient oriented x3 Extrem General: no calf tenderness Other: Bilateral lower extremities carrying extra weight. Psych Appearance: grossly normal Assessment and Plan Assessment and Plan (1) GERD (gastroesophageal reflux disease): ?Status:?Acute ?Plan: I have discussed with the patient conservative measures to try to assist with reflux.? We discussed head of bed elevation.? I offered her considering a trial reflux Gourmet.? She is to avoid food within 2 hours of sleep.? Avoid tobacco and alcohol.? We did discuss C-minus places but I can understand how food would not taste at all without it.? She is currently on 40 of omeprazole daily and has been on that for a period of time.? She only infrequently requires additional Tums. I recommend to her esophagogastroduodenoscopy with anticipated biopsy if indicated and she is aware of the technique, benefit, risk of alternatives. I did briefly discussed with her surgical reflux procedure however although she has lost weight her BMI is still elevated.? I think that she should consider a bariatric consultation for gastric bypass surgery and repair of her hiatal hernia which would treat her reflux and assist additionally with weight loss.? She states that she has considered this in the past but that her mother Cheryl has not been in favor. She has had an opportunity to ask and have questions answered.? We will schedule procedure at her discretion. Copy:Rosanna Reynolds NP-C Pradeep Rasmussen M.D., F.A.C.S. I have examined the patient and the H&P has been reviewed. There are no clinical changes since date of exam. Pradeep Rasmussen M.D., F.A.C.S.
[2022-03-28 06:38] LABS: Internal QC Validated? YES +Cl - CLEAR BKGD; Pregnancy, Urine Negative Negative
[2022-03-28] MEDS: Lactated Ringers 1,000 ML 15 ML IV (06:51)
--- NOTE | 2022-03-28 07:30 | EGD_PTH ---
PATIENT: GERDA GUERIN LOC: EN U#:[id number] AGE/SX: 41/F ROOM: RE03/28/[address]: Dr. Pradeep Rasmussen MD : 1980 BED: DIS: 03/28/2022 SPEC #: [id number] RECD: 03/28/22 10:56 STATUS: RAKAN GRANADO #: [id number] DAYNA: 03/28/22 07:[address]: Pradeep Rasmussen DEPT: SURGICAL PATHOLOGY RECD BY: Vanda Little ENTERED: 03/28/22 13:23 SP TYPE: EGD BIOPSY OTHR DR: Rosanna Rai, ANN MARIE Tissues: A - Duodenum, NOS B - Gastric mucous membrane C - Esophagus, NOS D - Esophagus, NOS Procedures: Special Stain Group II Surgery Specimen Level IV Alcian Blue/PAS (control) HEADER OPERATION: EGD with biopsy (MAC) PRE-OP DIAGNOSIS: GERD TISSUE SUBMITTED: A ? Duodenum, B ? Antrum for H. pylori and path, C ? Distal esophagus, D ? Mid esophagus MICROSCOPIC DIAGNOSIS A. Duodenum, biopsy: A fragment of duodenal mucosa, no pathologic diagnosis. B. Antrum, biopsy: Mild gastritis. See microscopic description and comment. C. Distal esophagus, biopsy: Fragments of gastroesophageal mucosa with chronic inflammation and changes consistent with gastroesophageal reflux disease. Intestinal metaplasia (goblet cell metaplasia) not identified. See comment. D. Mid esophagus biopsy: Fragments of benign squamous epithelium. SJ:maria teresa 03/31/2022 COMMENT B. The results of immunohistochemistry for Helicobacter pylori will be reported separately ([id number]). C. Mild increased number of eosinophils (~15 per high power field) are noted suggestive of eosinophilic esophagitis. Alcian blue/PAS stain with matched control is used in the evaluation of the specimen. Correlation with clinical, endoscopic findings and appropriate follow up are necessary. MICROSCOPIC DESCRIPTION Slides are reviewed. B. The specimen shows fragments of gastric mucosa with chronic inflammatory cell infiltrates in the lamina propria consisting of lymphocytes and plasma cells, consistent with mild chronic gastritis. GROSS DESCRIPTION A - Received in fixative is one container labeled with the patient's name and designated duodenum biopsy. The specimen consists of one irregular fragment of light madrid soft tissue that measures 0.3 x 0.3 x 0.1 cm. The specimen is totally submitted in one cassette. B - Received in fixative is one container labeled with the patient's name and designated antrum biopsy. The specimen consists of one irregular fragment of light madrid soft tissue that measures 0.3 x 0.3 x 0.1 cm. The specimen is totally submitted in one cassette. C - Received in fixative is one container labeled with the patient's name and designated distal esophagus biopsy. The specimen consists of multiple irregular fragments of light madrid soft tissue that in aggregate measure 2.5 x 0.5 x 0.1 cm. The specimen is totally submitted in one cassette. D - Received in fixative is one container labeled with the patient's name and designated mid esophagus. The specimen consists of two irregular fragments of light madrid soft tissue that in aggregate measure 0.6 x 0.3 x 0.1 cm. The specimen is totally submitted in one cassette. / SJ:maria teresa 03/28/2022 TC:3 CPT: 49969 x4, 34115
--- NOTE | 2022-03-28 07:30 | IMM_PTH ---
PATIENT: GERDA GUERIN LOC: EN U#:[id number] AGE/SX: 41/F ROOM: RE03/28/[address]: Dr. Pradeep Rasmussen MD : 1980 BED: DIS: 03/28/2022 SPEC #: [id number] RECD: 03/28/22 13:40 STATUS: RAKAN REQ #: [id number] DAYNA: 03/28/22 07:[address]: Pradeep Rasmussen DEPT: IMMUNOHISTOCHEMISTRY RECD BY: Katlin Otero ENTERED: 03/28/22 13:40 SP TYPE: IMMUNO OTHR DR: Rosanna Rai, ELEVATOR CONSTRUCTOR HELPER-Moe Tissues: B - Stomach, NOS Procedures: H Pylori (initial) PHYSICIAN & INSTITUTION [place] [id number] SPECIMEN INFORMATION: Tissue Source: B ? Antrum biopsy Clinical Info: GERD Specimen Number: [id number] CPT code: 87080 METHODOLOGY: Deparaffinized sections of prefer/formalin-fixed tissue or PAP/DQ stained slides are incubated with monoclonal/polyclonal antibodies/oligonucleotide probes. Localization is made via biotin free immunoperoxidase method. Appropriate controls are performed and reacted as expected. Results on target cell population are indicated in the following table: RESULTS: ANTIBODY / CLONE RESULT Block B H Pylori (polyclonal) negative These tests were developed and their performance characteristics determined by [facility]. They may not have been cleared or approved by the U.S. Food and Drug Administration. The FDA has determined that such clearance or approval is not necessary. The above immunohistochemical/dualISH markers are ordered and reviewed by the Pathologist. INTERPRETATION: B. Antrum, biopsy: Negative for Helicobacter pylori organisms. SJ:maria teresa 03/31/2022
--- NOTE | 2022-03-28 07:50 | OP.EGD_ITS ---
Patient Name: Kellen Byrnes Procedure Date: 03/28/2022 7:08 AM Date of : 1980 Age: 41 Procedure: Upper GI endoscopy Indications: Suspected esophageal reflux Providers: Pradeep Rasmussen MD Medicines: See the Anesthesia note for documentation of the administered medications Complications: No immediate complications. Procedure: Pre-Anesthesia Assessment: - Prior to the procedure, a History and Physical was performed, and patient medications and allergies were reviewed. The patient's tolerance of previous anesthesia was also reviewed. The risks and benefits of the procedure and the sedation options and risks were discussed with the patient. All questions were answered, and informed consent was obtained. Prior Anticoagulants: The patient has taken no previous anticoagulant or antiplatelet agents. ASA Grade Assessment: II - A patient with mild systemic disease. After reviewing the risks and benefits, the patient was deemed in satisfactory condition to undergo the procedure. After obtaining informed consent, the endoscope was passed under direct vision. Throughout the procedure, the patient's blood pressure, pulse, and oxygen saturations were monitored continuously. The Endoscope was introduced through the mouth, and advanced to the second part of duodenum. The upper GI endoscopy was accomplished without difficulty. The patient tolerated the procedure well. Scope In: 7:35:14 AM Scope Out: 7:46:13 AM Total Procedure Duration Time 0 hours 10 minutes 59 seconds Findings: The middle third of the esophagus was normal. Biopsies were taken with a cold forceps for histology. A small hiatal hernia was present. Esophagitis with no bleeding was found 38 cm from the incisors. Biopsies were taken with a cold forceps for histology. Diffuse mildly erythematous mucosa without bleeding was found in the gastric antrum. Biopsies were taken with a cold forceps for histology. The examined duodenum was normal. Biopsies were taken with a cold forceps for histology. Impression: - Normal middle third of esophagus. Biopsied. - Small hiatal hernia. - Reflux esophagitis. Biopsied. - Erythematous mucosa in the antrum. Biopsied. - Normal examined duodenum. Biopsied. Recommendation: - Discharge patient to home. - Resume previous diet. - Continue present medications. - Telephone my office for pathology results in 1 week. Procedure Code(s): --- Professional --- 60669, Esophagogastroduodenoscopy, flexible, transoral; with biopsy, single or multiple Diagnosis Code(s): --- Professional --- K44.9, Diaphragmatic hernia without obstruction or gangrene K21.0, Gastro-esophageal reflux disease with esophagitis K31.89, Other diseases of stomach and duodenum CPT copyright 2017 [employer]. All rights reserved. The codes documented in this report are preliminary and upon foot and ankle surgeon review may be revised to meet current compliance requirements. Pradeep Rasmussen MD 03/28/2022 7:50:46 AM This report has been signed electronically. Number of Addenda: 0 Note Initiated On: 03/28/2022 7:08 AM
--- NOTE | 2022-03-28 07:51 | OP.CCLET_ITS ---
03/28/2022 Rosanna Rai Re : Upper GI endoscopy procedure for Kellen Byrnes Dear Cecelia This procedure was performed on Monday, March 28, 2022. My impressions and recommendations are as follows: Impressions : - Normal middle third of esophagus. Biopsied. - Small hiatal hernia. - Reflux esophagitis. Biopsied. - Erythematous mucosa in the antrum. Biopsied. - Normal examined duodenum. Biopsied. Recommendations : - Discharge patient to home. - Resume previous diet. - Continue present medications. - Telephone my office for pathology results in 1 week. My findings are described in the full procedure note, which is enclosed. If I can be of further assistance, please feel free to contact me at Doctor phone number(s): Work: . Sincerely, Pradeep Rasmussen MD 03/28/2022 7:50:46 AM This report has been signed electronically.
== END 2022-03-28 08:32 | disposition home or self-care (01) ==
LOC: EN 06:16 → AC 06:17
PROVIDERS: Anesthesiology; PCP Registered Nurse; Referring Provider Registered Nurse; Visit Provider Surgery
PROC: 0DJ08ZZ Inspection of Upper Intestinal Tract, Via Natural or Artificial Opening Endoscopic (ICD-10-PCS; CPT 43235; principal; 2022-03-28 07:25)
DX: K44.9 Diaphragmatic hernia without obstruction or gangrene (principal); K29.70 Gastritis, unspecified, without bleeding; K31.89 Other diseases of stomach and duodenum; G43.909 Migraine, unspecified, not intractable, without status migrainosus; K21.00 Gastro-esophageal reflux disease with esophagitis, without bleeding; I10 Essential (primary) hypertension; E66.9 Obesity, unspecified; Z79.899 Other long term (current) drug therapy; Z86.16 Personal history of COVID-19
CPT/HCPCS: 43239; 81025; 88305; 88313; 88342; J7120; J2405

== ENCOUNTER → 2022-09-05 | Outpatient (CLI) | payer BC, SELFPAY ==
--- NOTE | 2022-09-05 06:46 | MRI_ITS ---
STUDY: MRI LEFT KNEE REASON FOR EXAM: Female, 41 years old. Pain. TECHNIQUE: Standardized fat and water weighted pulse sequences were obtained in all 3 orthogonal planes. COMPARISON: X-ray August 12, 2022 FINDINGS: There is a horizontal oblique medial meniscus tear of the posterior horn and series 6 image 07/16. Normal hyaline cartilage of the medial femorotibial compartment. There is mild osteoarthritic spur formation of the medial knee compartment. Normal medial collateral ligamentous complex (MCL). Normal distal semimembranosus, gracilis and semitendinosus tendons. Normal lateral meniscus. Normal hyaline cartilage of the lateral femorotibial compartment. Normal lateral femoral condyle and tibial plateau. Normal proximal tibiofibular articulation. Normal lateral collateral (fibular) ligament. Normal popliteus tendon. Normal biceps femoris tendon. Normal anterior cruciate ligament (ACL). Normal posterior cruciate ligament (PCL). There is arthrosis of the patellofemoral articulation. There is diffuse, greater than 50% thickness articular cartilage loss of the patellofemoral compartment. Normal medial and lateral patellar retinaculum. Normal quadriceps tendon. There is osseous fragmentation of the anterior tibial tubercle, consistent with Ziyad-Schlatter''s disease. Normal Hoffa''s fat pad. There is a moderate volume joint effusion. The soft tissues are unremarkable. The otherwise visualized osseous structures are unremarkable. MRI/Lower Ext Joint Only (Routine) IMPRESSION: Medial meniscus tear. Degenerative change. Prior Presto-Schlatter''s disease. Joint effusion. Electronically Signed: Parminder Grissom MD at 9:47 EDT ,
== END | disposition home or self-care (01) ==
PROVIDERS: PCP Registered Nurse
DX: M23.92 Unspecified internal derangement of left knee (principal)
CPT/HCPCS: 73721

== ENCOUNTER → 2022-11-11 | Outpatient (CLI) | payer BC, SELFPAY ==
--- NOTE | 2022-11-11 10:39 | BI_ITS ---
MAMMOGRAPHY - BILATERAL SCREENING REASON FOR EXAM: Female, 41 years old. Routine annual screening examination. PERTINENT HISTORY: Non-contributory. TECHNIQUE: Digital bilateral breast lydia (3D mammographic acquisition) in the CC and MLO projections. 2-D mediolateral oblique (MLO) and craniocaudad (CC) views of both breasts were obtained. CAD: Full Field Digital Mammography with Computer Added Detection was performed. COMPARISON: Comparison is made with prior study October 09, 2021 and September 20, 2020. FINDINGS: Breast Composition: There are scattered areas of fibroglandular density. There are no dominant masses or suspicious calcifications. No other significant abnormalities are identified. There has been no significant change since the prior study. BI/SCRN MAMM (CAD)W/LYDIA BILAT IMPRESSION: Stable bilateral screening mammogram. Yearly follow-up mammogram recommended. (A) ASSESSMENT CATEGORY: BIRADS Category 1: Negative. A letter regarding these results will be sent to the patient by the facility within 30 days. Approximately 10% of breast cancers are not detected by mammography. A normal mammogram should not delay biopsy of a clinically suspicious abnormality. [id number] Electronically Signed: Suhail Mclaughlin MD at 12:12 EDT ,
[2022-11-14 15:07] LABS: HPV APTIMA, High Risk Negative (Negative)
== END | disposition home or self-care (01) ==
PROVIDERS: PCP Registered Nurse; Referring Provider Obstetrics & Gynecology; Visit Provider Obstetrics & Gynecology
DX: Z12.31 Encounter for screening mammogram for malignant neoplasm of breast (principal)
CPT/HCPCS: 77063; 77067; 87624; 88175; G0145

== ENCOUNTER 2022-11-19 22:04 | Emergency (ER) | payer BC, SELFPAY ==
[2022-11-19 22:05] VITALS: BP 154/92; PULSE 81; RESP 16; TEMP 36.2; O2SAT 98; BMI 38.7
--- NOTE | 2022-11-19 22:20 | CT_ITS ---
INDICATION: RLQ pain EXAMINATION: CT ABDOMEN AND PELVIS WITH CONTRAST - CT Abdomen And Pelvis W/ Contrast Injection TECHNIQUE: Helically acquired images were obtained of the abdomen and pelvis following IV contrast. A radiation dose optimization technique was used for this scan. IV Contrast dosage and agent: 100 mL Isovue-300. Oral contrast: None. COMPARISON: None. FINDINGS: LOWER CHEST: Lung bases are clear. No cardiomegaly or pericardial effusion. LIVER: Homogeneous. No focal mass. GALLBLADDER AND BILIARY TREE: No calcified gallstones. No gallbladder distension or wall edema. No intra- or extrahepatic biliary ductal dilation. PANCREAS: No focal cystic or solid mass. SPLEEN: Normal size without focal cystic or solid mass. ADRENAL GLANDS: No nodules. KIDNEYS AND URETERS: Normal renal size and position. No hydronephrosis. PERITONEUM: No ascites or free air. No other fluid collection. BOWEL: No acute gastric finding. No small bowel distention. Mild nonspecific small bowel wall thickening of the left abdomen, axial image 44. Mild terminal ileal wall thickening versus peristalsis without surrounding inflammatory stranding, axial image 85. Normal 2 mm appendix. Moderate colonic stool burden. No colonic wall thickening or surrounding inflammation. LYMPH NODES: Subcentimeter right lower quadrant reactive lymph nodes. VESSELS: Aorta is non-dilated. URINARY BLADDER: Unremarkable. REPRODUCTIVE ORGANS: Anteverted uterus with intrauterine device in appropriate position. No evidence of adnexal mass.. ABDOMINAL WALL: Small fat-containing umbilical hernia without inflammation. No discrete abdominal or pelvic wall hernia. BONES: No lytic or blastic abnormality. CT/Abdomen/Pelvis W IV Cont ONLY IMPRESSION: Mild nonspecific small bowel wall thickening in the central left abdomen and terminal ileum, nonspecific but can be seen with inflammatory bowel disease such as Crohn''s disease or mild infectious enteritis in the appropriate setting. No significant inflammatory stranding is seen surrounding the bowel however. Few right lower quadrant reactive lymph nodes are present. Consider GI follow-up with CT or fluoroscopic small bowel follow-through to ensure resolution. Moderate colonic stool burden as can be seen with constipation. Normal appendix. Electronically Signed: Van Stockton MD at 0:21 EDT ,
--- NOTE | 2022-11-19 22:21 | EDS_ITS ---
HPI HPI - GI History of Present Illness Chief Complaint: Abd Pain Narrative Narrative: 42-year-old female past medical history of hypertension, migraines, takes Ozempic for weight loss and has been on it for over a year, presents with right lower quadrant abdominal pain. She states she woke this morning, early, with periumbilical abdominal pain and nausea. Throughout the day, and has worsened and radiated more towards the right and her right flank. She denies any fevers or chills but states that she gets this wave of nausea. She is employed as a dental hygienist and when she pushed back in her chair, she felt increasing abdominal pain. She denies any problems with bowel movements, no dysuria or hematuria. She states she has had decreased appetite with this as she becomes nauseated when she eats or thinks about food. Past abdominal surgery includes cholecystectomy, and previous C-sections. [facility] Medical History Cardiology follow-up encounter Fibrocystic changes of left breast Gastric reflux History of echocardiogram History of hiatal hernia History of migraine History of steroid therapy Hypertension Migraine headache Non-smoker Other specified abnormal uterine and vaginal bleeding PCOS (polycystic ovarian syndrome) PCOS (polycystic ovarian syndrome) Wears glasses Home Medications losartan 50 mg tablet 50 mg PO DAILY 07/16/17 [History Last Taken 03/28/22 05:30] topiramate 50 mg tablet (Topamax) 50 mg PO DAILY 11/19/17 [History Last Taken Unknown] levonorgestrel 21 mcg/24 hours (8 yrs) 52 mg intrauterine device (Mirena) 1 insert intrauterine ONCE 03/08/18 [History Last Taken Unknown] verapamil 80 mg tablet 80 mg PO DAILY 09/14/19 [History Last Taken 03/28/22 05:30] semaglutide 0.25 mg or 0.5 mg (2 mg/1.5 mL) subcutaneous pen injector (Ozempic) 0.5 mg subcut TU 10/09/21 [History Last Taken Unknown] chlorthalidone 25 mg tablet 25 mg PO DAILY 03/17/22 [History Last Taken Unknown] gabapentin 300 mg capsule 300 mg PO DAILY 03/17/22 [History Last Taken 03/28/22 05:30] omeprazole 40 mg capsule,delayed release 40 mg PO DAILY 03/17/22 [History Last Taken Unknown] ubrogepant 100 mg tablet (Ubrelvy) 100 mg PO .prn MIGRAINES 03/17/22 [History Last Taken Unknown] diazepam 5 mg tablet (Valium) 5 mg PO ONCE Anxiety #1 TAB 08/12/22 [Rx Last Taken Unknown] semaglutide 0.25 mg or 0.5 mg (2 mg/3 mL) subcutaneous pen injector (Ozempic) 0.25 mg subcut QWEEK 11/11/22 [History Last Taken Unknown] ondansetron 4 mg disintegrating tablet 4 mg PO Q6H PRN nausea and vomiting #20 tabs 11/20/22 [Rx Last Taken Unknown] prednisone 20 mg tablet 20 mg PO DAILY #7 tabs 11/20/22 [Rx Last Taken Unknown] Allergy/AdvReac Type Severity Reaction Status Date / Time adhesive tape [tape] AdvReac Rash Verified 11/19/22 22:08 Family History Father Hypertension Cancer bladder Heart disease Multiple sclerosis High cholesterol Mother Hypertension Grandfather Cancer prostate Heart disease Hypertension Grandmother Diabetes Hypertension Surgical History delivery delivered Encounter for cholecystectomy History of laparoscopic cholecystectomy History of tonsillectomy Social History Smoking Status: Never smoker alcohol intake: never substance use type: does not use caffeine: Yes what type of physical activity do you participate in: none seatbelt use: always do you feel safe at home: Yes additional social history: [employer] Patient is a dental hygenist ROS ROS ED ROS Narrative Constitutional: No fever, no chills. HEENT: No sore throat. No neck pain. No loss of vision. No rhinorrhea. Cardiovascular: No chest pain. No palpitations. No pedal edema. Respiratory: No cough, no shortness of breath. Abdominal: Periumbilical to right lower quadrant abdominal pain. Positive nausea. No vomiting. Genitourinary: No dysuria. No hematuria. Musculoskeletal: No myalgias. No arthralgias. Neurologic: No headaches. No dizziness. No lightheadedness. Skin: No rash. No change in color. Psychiatric: No depression. No anxiety. EXAM Physical Exam Narrative Exam Narrative: Afebrile. Vital signs noted. HEENT: Normocephalic. Atraumatic. PERRL, EOMI. Neck soft and supple. No point tenderness or step off. Cardiovascular: Regular rate and rhythm. No murmurs, rubs, or gallops appreciated. Respiratory: No tachypnea. Lungs clear to auscultation bilaterally. Gastrointestinal: Abdomen soft, mild tenderness to palpation right lower qu adrant, somewhat over McBurney's point with normoactive bowel sounds. No rebound or guarding. Neurological: Awake. Alert. Nonfocal, nonlateralizing. Skin: No rash. Normal color. No pallor. Musculoskeletal: No pedal edema. Full range of motion extremities. Const Vital Signs: 11/19/22 22:05 Temperature 97.2 F L Temperature Source Temporal Pulse Rate 81 Respiratory Rate 16 Blood Pressure 154/92 H Blood Pressure Mean 112 Pulse Ox 98 Oxygen Delivery Method Room Air MDM MDM MDM Narrative Medical decision making narrative: In the differential diagnosis is acute appendicitis versus ovarian cyst. Patient does have an IUD. Also in the differential diagnosis is ureterolithiasis, however her history and physical is not supportive of this as she has not had dysuria or hematuria, or colicky pain. She was bolused normal saline 1 L intravenously and administered ondansetron for her nausea and I did order morphine for analgesia. I do feel CT is indicated to help rule out appendicitis. I will obtain a serum although she has an IUD and states that she has not had a menstrual period for quite some time. I reviewed her laboratory work, she has normal white count 9.4, hemoglobin normal at 14.1, hematocrit 42.4, platelet count normal at 393. Potassium is slightly low at 2.9 which was replaced orally, normal sodium of 138, chloride normal at 104. BUN is slightly elevated 21 with a creatinine normal at 1.0, AST low at 12 with a normal ALT of 24. Urinalysis obtained and reviewed and is negative for infection. I do not feel antibiotics are indicated. I reviewed the CT report of her abdomen and pelvis which shows terminal ileitis and some inflammation of the small bowel loops in the central to left lower quadrant. I discussed patient with Dr. Howell with gastroenterology who reviewed the CT as well. He would like her placed on prednisone 20 mg once a day for the next 7 days. She was given her first dose here in the emergency department. He did not want antibiotics started on her. She will follow-up with him within the next week. I feel she be discharged safely home with follow-up. She was written prescriptions for Zofran and for the prednisone. I do not feel she requires observation. Return instructions were reviewed. Disposition is discharged home in stable condition. History & Record Review Discussion w/independent historian: Patient Additional record(s) reviewed:: Prior ED visit Lab Data Attestation: I reviewed the patient's lab results. Labs: Laboratory Results - last 24 hr 11/19/22 22:40 WBC 9.4 RBC 4.90 Hgb 14.1 Hct 42.4 MCV 86.5 MCH 28.8 MCHC 33.3 RDW Std Deviation 40.3 RDW Coeff of Marco A 12.8 Plt Count 393 MPV 9.8 Immature Gran % (Auto) 0.100 Neut % (Auto) 60.2 Lymph % (Auto) 27.6 [place] % (Auto) 9.1 Eos % (Auto) 2.6 Baso % (Auto) 0.4 Absolute Neuts (auto) 5.6 Absolute Lymphs (auto) 2.58 Nucleated RBC % 0 Sodium 138 Potassium 2.9 L Chloride 104 Carbon Dioxide 28.0 Anion Gap 6 BUN 21 H Creatinine 1.01 Estim Creat Clear Calc 76.61 Est GFR (MDRD) Af Amer 78 Est GFR (MDRD) Non-Af 64 BUN/Creatinine Ratio 20.8 H Glucose 90 Calcium 9.2 Total Bilirubin 0.80 AST 12 L ALT 24 Alkaline Phosphatase 86 Total Protein 7.8 Albumin 3.9 Globulin 3.9 Albumin/Globulin Ratio 1.0 Serum , Qual NEGATIVE Urine Color Yellow Urine Clarity Clear Urine pH 5.0 Ur Specific [place] 1.025 Urine Protein Negative Urine Glucose (UA) Normal Urine Ketones Negative Urine Occult Blood Negative Urine Nitrite Negative Urine Bilirubin Negative Urine Urobilinogen 1 H Ur Leukocyte Esterase 100 H Urine RBC 0 SEEN Urine WBC 0-5 SEEN Ur Squamous Epith Cells 0-5 SEEN Urine Bacteria 0 SEEN Urine Mucus 0 SEEN Radiography Diagnostic Testing: Clinical Impression(s) from Imaging Studies Abdomen/Pelvis CT 11/19/22 22:20 IMPRESSION: Mild nonspecific small bowel wall thickening in the central left abdomen and terminal ileum, nonspecific but can be seen with inflammatory bowel disease such as Crohn''s disease or mild infectious enteritis in the appropriate setting. No significant inflammatory stranding is seen surrounding the bowel however. Few right lower quadrant reactive lymph nodes are present. Consider GI follow-up with CT or fluoroscopic small bowel follow-through to ensure resolution. Moderate colonic stool burden as can be seen with constipation. Normal appendix. Electronically Signed: Van Stockton MD at 0:21 EDT , Discharge Plan Triage Chief Complaint: Abd Pain ED Provider: Kp Castaneda Dx/Rx/DC Orders Clinical Impression: Terminal ileitis, Enteritis, Nausea Instructions: ED Gastroenteritis, Noninfectious Prescriptions: New prednisone 20 mg tablet 20 mg PO DAILY Qty: 7 0RF ondansetron 4 mg tablet,disintegrating 4 mg PO Q6H PRN (Reason: nausea and vomiting) Qty: 20 0RF No Action topiramate [Topamax] 50 mg tablet 50 mg PO DAILY gabapentin 300 mg capsule 300 mg PO DAILY Mirena 20 mcg/24 hr (5 years) intrauterine device 1 insert intrauterine ONCE verapamil 80 mg tablet 80 mg PO DAILY Ozempic 0.25 mg or 0.5 mg(2 mg/1.5 mL) pen injector 0.5 mg subcut TU Ozempic 0.25 mg or 0.5 mg (2 mg/3 mL) pen injector 0.25 mg subcut QWEEK Rx Instructions: for 4 weeks Ubrelvy 100 mg tablet 100 mg PO .prn Patient Comments: TAKE 1 TABLET BY MOUTH AT ONSET OF HEADACHE. MAY REPEAT DOSE IN 2 HOURS. MAX 2/24 HOURS omeprazole 40 mg capsule,delayed release(DR/EC) 40 mg PO DAILY chlorthalidone 25 mg tablet 25 mg PO DAILY diazepam [Valium] 5 mg tablet 5 mg PO ONCE Qty: 1 0RF Rx Instructions: Take 1 tablet 30 minutes before MRI losartan 50 MG tablet 50 mg PO DAILY Stand Alone Forms: ED Work / School Excuse Primary Care Provider: Rosanna Rai NP Referrals: Dante,DO Todd [Med Staff - Active Staff] - 3-5 Days Rosanna Rai NP, RECRE[employer] PROGRAM SPECIALIST-[employer] [Primary Care Provider] - Disposition Disposition: Home, Self Care
[2022-11-19] MEDS: Ondansetron 4 MG/2 ML Vial IV (22:39)
[2022-11-19] MEDS: 0.9% Normal Saline (1000mL) 1,000 ML 1000 ML IV (22:39)
[2022-11-19] MEDS: Morphine 4 MG/ML Syringe IV (22:40)
[2022-11-19 22:59] LABS: Bacteria 0 SEEN /hpf (None Seen); Mucous, Urine 0 SEEN /hpf (<or=2+); Red Blood Cells-Urine 0 SEEN /hpf (0-5)
[2022-11-19 23:01] LABS: Absolute Lymphocyte Count 2.58 X10^3/uL (0.83-4.51); Absolute Neutrophil Count 5.6 X10^3/uL (2.0-7.7); Basophil# 0.04 X10^3/uL; Basophil% 0.4 % (0-1); Eosinophil# 0.24 X10^3/uL; Eosinophils% 2.6 % (0-5); Hematocrit 42.4 % (37-47); Hemoglobin 14.1 g/dL (12.0-15.0); Lymphocyte # 2.58 X10^3/ul (0.83-4.51); Lymphocyte % 27.6 % (19-41); Mean Corp Hgb Conc 33.3 g/dL (32-36); Mean Corpuscular Hgb 28.8 pg (27.0-32.0); Mean Corpuscular Volume 86.5 fL (81-99); Mean Platelet Vol. 9.8 fl (6.2-12.0); Monocyte# 0.85 X10^3/uL; Monocyte% 9.1 % (0-10); NRBC Flagged by Analyzer 0 % (0-5); Neutrophil # 5.64 X10^3/uL (2.7-7.7); Neutrophil % 60.2 % (47-70); Platelet Count 393 K/mm3 (150-450); RBC Distribution Width CV 12.8 % (11.6-14.6); RBC Distribution Width SD 40.3 fl (35.1-43.9); White Blood Count 9.4 K/mm3 (4.4-11.0)
[2022-11-19 23:04] LABS: Color, Urine Yellow (Yellow); Glucose, Dipstick Normal (Normal); Ketone-Dipstick Negative (Negative); Leukocyte Esterase-Dipstick 100 /ul (Negative); Nitrite-Dipstick Negative (Negative); Occult Blood-Urine Negative /ul (Negative); Protein-Dipstick Negative (Negative); Specific Gravity, Urine 1.025 (1.002-1.030); Urine Bilirubin Dipstick Negative (Negative); Urine Clarity Clear (Clear); Urine Urobilinogen 1 mg/dl (Normal)
[2022-11-19 23:13] LABS: Squamous Epithelial Cells - UA 0-5 SEEN /hpf (5-10); White Blood Cells 0-5 SEEN /hpf (0-5)
[2022-11-19 23:16] LABS: Internal QC Validated? YES +Cl - CLEAR BKGD; Pregnancy, Serum, hCG Quali. NEGATIVE Negative
[2022-11-20 00:23] LABS: BUN 21 mg/dL (7-18); BUN/Creat Ratio 20.8 RATIO (10-20); Creatinine, Serum 1.01 mg/dL (0.55-1.02); Estimated Creatinine Clearance 76.61 ml/min; Glucose 90 mg/dL (74-106)
[2022-11-20 00:24] LABS: AST(SGOT) 12 U/L (15-37); Alanine Aminotransfer ALT/SGPT 24 U/L (13-56); Albumin, Serum 3.9 g/dL (3.2-5.0); Alkaline Phosphatase 86 U/L (45-117); Anion Gap 6 (5-15); Calcium,Total 9.2 mg/dL (8.5-10.1); Chloride 104 mmol/L (98-107); Globulin 3.9 g/dL (2.2-4.2); Potassium 2.9 mmol/L (3.5-5.1); Protein, Total 7.8 g/dL (6.4-8.2); Sodium Level 138 mmol/L (136-145)
[2022-11-20 01:04] VITALS: PULSE 69; RESP 14; O2SAT 98
[2022-11-20] MEDS: Ondansetron 4 MG/2 ML Vial IV (01:34)
[2022-11-20] MEDS: Potassium Chloride Oral Tablet 20 MEQ 40 MEQ PO (01:35)
[2022-11-20] MEDS: predniSONE 20 MG Tablet PO (01:35)
[2022-11-26 23:47] LABS: EST Glomerular Filtration Rate 64 mL/min (>60); Est Glom Filt Rate - Afr Amer 78 mL/min (>60)
== END 2022-11-20 01:46 | disposition home or self-care (01) ==
PROVIDERS: Emergency Provider Emergency Medicine; PCP Registered Nurse; Visit Provider Emergency Medicine
DX: K50.00 Crohn's disease of small intestine without complications (principal); I10 Essential (primary) hypertension; K21.9 Gastro-esophageal reflux disease without esophagitis; Z90.49 Acquired absence of other specified parts of digestive tract; Z97.5 Presence of (intrauterine) contraceptive device; Z79.899 Other long term (current) drug therapy
CPT/HCPCS: 74177; 80053; 81001; 84703; 85025; 96361; 96374; 96375; 96376; 99284; J7030; Q9967; A4216; J2405

== ENCOUNTER → 2022-11-25 | Outpatient (CLI) | payer BC, SELFPAY ==
[2022-11-25 12:19] LABS: Erythrocyte Sedimentation Rate 5 mm/hr (0-30)
[2022-11-25 12:43] LABS: CRP < 2.90 mg/L (0.0-3.0); Potassium 2.9 mmol/L (3.5-5.1)
[2022-11-25 13:20] LABS: Magnesium 2.6 mg/dL (1.6-2.6)
== END | disposition home or self-care (01) ==
LOC: PAVLAB 11:16
PROVIDERS: PCP Registered Nurse; Referring Provider Surgery; Visit Provider Surgery
DX: R10.9 Unspecified abdominal pain (principal); R11.0 Nausea; K52.9 Noninfective gastroenteritis and colitis, unspecified
CPT/HCPCS: 36415; 83735; 84132; 85652; 86140

== ENCOUNTER → 2022-11-26 | Outpatient (CLI) | payer BC, SELFPAY ==
--- NOTE | 2022-11-26 13:45 | CT_ITS ---
STUDY: CT ABDOMEN AND PELVIS WITH CONTRAST REASON FOR EXAM: Female, 42 years old. Abdominal pain/diarrhea -- CT enterography RADIATION DOSAGE (If Supplied By Facility): CTDIvol = ( 19.86 ) mGy, DLP = ( 2850.21 ) mGycm TECHNIQUE: Transaxial images were obtained from the dome of the diaphragm to the symphysis pubis with oral contrast. Oral and amp; IV BREEZA NEUTRAL and amp; 100mL Isovue-300 was administered. Sagittal and coronal images were reconstructed. 3-D images were reconstructed. Individualized dose optimization techniques were used for this CT. COMPARISON: Comparison is made with prior study dated November 19, 2022. FINDINGS: The visualized lung bases are unremarkable. The visualized portions of the heart are within normal limits. Normal liver. There is nonvisualization of gallbladder most likely secondary to the prior cholecystectomy. Normal spleen. Normal pancreas. Normal bilateral adrenal glands. Normal right kidney. Normal left kidney. Normal visualized stomach. Normal small intestine. Normal colon. The appendix is visualized and appears normal. Small lymph nodes are seen in the mesenteric fat in the right lower quadrant suggestive of mesenteritis. Normal abdominal aorta. Normal inferior vena cava. Normal retroperitoneum. Normal urinary bladder. IUD is seen within the uterus. There is a small umbilical hernia containing fat. Normal osseous structures. CT/Abdomen/Pelvis WITH Contrast IMPRESSION: Status post cholecystectomy. No acute abnormality is seen. Electronically Signed: Suhail Mclaughlin MD at 15:17 EDT ,
== END | disposition home or self-care (01) ==
PROVIDERS: PCP Registered Nurse; Referring Provider Surgery; Visit Provider Surgery
DX: K50.00 Crohn's disease of small intestine without complications (principal)
CPT/HCPCS: 74177; Q9967; A4216

== ENCOUNTER → 2023-11-13 | Outpatient (CLI) | payer BC, SELFPAY ==
--- NOTE | 2023-11-13 07:13 | BI_ITS ---
MAMMOGRAPHY - BILATERAL SCREENING REASON FOR EXAM: Female, 42 years old. Routine annual screening examination. PERTINENT HISTORY: Aunt with breast cancer. TECHNIQUE: Digital bilateral breast lydia (3D mammographic acquisition) in the CC and MLO projections. 2-D mediolateral oblique (MLO) and craniocaudad (CC) views of both breasts were obtained. CAD: Full Field Digital Mammography with Computer Added Detection was performed. COMPARISON: Comparison is made with prior study dated November 11, 2022 October 09, 2021. FINDINGS: Breast Composition: There are scattered areas of fibroglandular density. There are no dominant masses or suspicious calcifications. No other significant abnormalities are identified. There has been no significant change since the prior study. BI/SCRN MAMM (CAD)W/LYDIA BILAT IMPRESSION: Stable bilateral screening mammogram. Yearly follow-up mammogram recommended. (A) ASSESSMENT CATEGORY: BIRADS Category 1: Negative. A letter regarding these results will be sent to the patient by the facility within 30 days. Approximately 10% of breast cancers are not detected by mammography. A normal mammogram should not delay biopsy of a clinically suspicious abnormality. [id number] Electronically Signed: Suhail Mclaughlin MD at 8:35 EDT ,
== END | disposition home or self-care (01) ==
PROVIDERS: PCP Registered Nurse; Referring Provider Obstetrics & Gynecology; Visit Provider Obstetrics & Gynecology
DX: Z12.31 Encounter for screening mammogram for malignant neoplasm of breast (principal)
CPT/HCPCS: 77063; 77067